=== PATIENT | female | born 1965 | race Caucasian/White ===

== ENCOUNTER 2022-04-22 10:44 | Outpatient (CLI) | payer OTHER, SELFPAY ==
--- NOTE | ~2022-04-22 | MMUS_ITS ---
EXAMINATION: US breast biopsy RT w image, MM post biopsy invasive RT DATE: 04/22/2022 12:47 (accession [id number]), 04/22/2022 12:43 (accession [id number]) INDICATION: Indeterminate mass in the upper outer quadrant of the right breast on diagnostic mammogra m and ultrasound. Ultrasound-guided core biopsy is requested to evaluate for malignancy. TECHNIQUE AND FINDINGS: The risks and potential benefits of the procedure were discussed with the patient including bleeding and infection. A time out was performed. The skin of the right breast was prepared and draped in usua l sterile fashion. 1% lidocaine was used for superficial anesthesia. 1% lidocaine with epinephrine wa s used for deep anesthesia. A vacuum-assisted biopsy gun needle was advanced through to the outer edge of the region of interest from a lateral approach utilizing sonographic guidance. A total of two tissue core sample was obtaine d through the lesion. After the first pass, the lesion was no longer visible, likely a cyst. A tissue marker clip was then placed at the biopsy site. Hemostasis was achieved. A sterile bandage was appli ed. The patient tolerated procedure well and there was no evidence of immediate complication. The patient was given verbal instructions to return to the Emergency Department in the event of severe breast pa in or rapid breast enlargement. A two view right breast mammogram was obtained to document tissue mar ker clip placement. IMPRESSION: 1. Successful ultrasound-guided vacuum-assisted biopsy of right breast mass with tissue marker placem ent. Reviewed, dictated and finalized at location A. IMPRESSION: 1. Successful ultrasound-guided vacuum-assisted biopsy of right breast mass wit h tissue marker placement.
== END 2022-04-22 10:45 | disposition home or self-care (01) ==
PROVIDERS: PCP Family Medicine Sports Medicine; Visit Provider Surgery
DX: R92.8 Other abnormal and inconclusive findings on diagnostic imaging of breast (principal); N64.89 Other specified disorders of breast
CPT/HCPCS: 19083; 88305; A4648

== ENCOUNTER 2022-07-30 14:04 | Emergency (ER) | payer OTHER, SELFPAY ==
[2022-07-30 16:01] VITALS: BP 160/95; PULSE 102; RESP 18; TEMP 36.4; O2SAT 99
--- NOTE | 2022-07-30 16:12 | ED.GENADULT ---
HPI - General Adult General Chief complaint: Neck Pain/Injury Stated complaint: neck pain Time Seen by Provider: 07/30/22 16:12 Source: patient Mode of arrival: ambulatory Limitations: no limitations History of Present Illness HPI narrative: 56-year-old female patient presents to the [facility] with complaints of neck pain for the past 2 days. Patient states that she went to go get a neck adjustment from her chiropractor but states that the pain really started after she got her adjustment. Patient denies seeing anything for the pain but states that her head just feels heavy at times. Patient also complaining of a sore throat some sinus drainage for the past couple of days as well. Denies any fevers, body aches chills or any other cold or flu-like symptoms. Related Data Home Medications Medication Instructions Recorded Confirmed albuterol sulfate 90 mcg/actuation 2 inh inhalation Q6H PRN Shortness 03/28/22 05/07/22 breath activated powder inhaler Of Breath buspirone 5 mg tablet 5 mg PO BID 03/28/22 05/07/22 fluticasone propionate 50 2 spray intranasal DAILY 03/28/22 05/07/22 mcg/actuation nasal spray,suspension (Flonase Allergy Relief) montelukast 10 mg tablet 10 mg PO DAILY 03/28/22 05/07/22 pseudoephedrine HCl 120 mg 120 mg PO Q12H 03/28/22 05/07/22 tablet,extended release (Sudafed 12 Hour) Q John 07/30/22 Allergies Allergy/AdvReac Type Severity Reaction Status Date / Time penicillin G Allergy Unknown Unknown Verified 07/30/22 15:41 Review of Systems Review of Systems: CONSTITUTIONAL: Denies fever, chills, or sweats. EYES: Denies visual changes, redness, or discharge. ENT: Denies rhinorrhea, positive congestion, positive sore throat, denies otalgia. CARDIOVASCULAR: Denies chest pain, palpitations, or edema. RESPIRATORY: Denies cough or dyspnea. GASTROINTESTINAL: Denies abdominal pain, nausea, vomiting, or diarrhea. GENITOURINARY: Denies dysuria or hematuria. SKIN: Denies rash or itching. MUSCULOSKELETAL: Denies back pain, joint pain, or myalgia. Positive upper posterior neck pain x2 days NEUROLOGIC: Denies headache, numbness, or weakness. PSYCHIATRIC: Denies anxiety or depression. PMFSH Past Medical History Medical History Asthma Kidney stones Surgical History Surgical History History of ear surgery History of mandibular surgery History of throat surgery Family History Family History Father Asthma Diabetes mellitus Hypertension Heart disease Mother Diabetes mellitus Hypertension Social History Social History Smoking status: Never smoker Alcohol intake: never Substance use: never Substance use type: does not use Comments At the time of my signature I agree with nursing past medical history, surgical, social, and family history. There is no relevant family history pertinent to the presenting complaint. Exam Narrative: GENERAL: Well-appearing, well-nourished, and in no acute distress. HEAD: Normocephalic, atraumatic. EYES: PERRLA and EOMI. NECK: Supple, no lymphadenopathy. No surface trauma, tenderness with obvious muscle spasm noted to the right lateral side of posterior head. Trachea midline. No subq emphysema or crepitus. No lukas tenderness, step-offs or deformity to firm Palpation at posterior midline. FROM without limitation or pain, normal flexion, extension,Lateral bending, rotation, and axial load. ENT: Nares clear, no rhinorrhea or epistaxis. Mucous membranes moist. Posterior pharynx with erythema noted. No tonsillar enlargement noted. NECK: Supple. No lymphadenopathy CHEST: Clear to auscultation. No respiratory distress. HEART: Regular rate and rhythm. No murmur heard. Normal peripheral pulses. ABDOMEN: Soft, nontender, nondistended, nor
== END 2022-07-30 16:59 | disposition home or self-care (01) ==
PROVIDERS: Emergency Provider Nurse Practitioner Family; PCP Family Medicine Sports Medicine
DX: M62.838 Other muscle spasm (principal); J45.909 Unspecified asthma, uncomplicated
CPT/HCPCS: 87081; 87880; 99213; G0463

== ENCOUNTER 2022-10-26 15:14 | Emergency (ER) | payer OTHER, SELFPAY ==
[2022-10-26] VITALS (10 sets, daily range): BP systolic 145–168; BP diastolic 90–96; PULSE 94–116; RESP 12–24; TEMP 36.9; O2SAT 95–100
--- NOTE | ~2022-10-26 | XR_ITS ---
EXAMINATION: XR chest 1V Exam Date/Time: 10/26/2022 15:30 PATIENT FINANCIAL ADVOCATE HISTORY: stroke symptoms, LEFT FACIAL DROOP, TIGHTNESS ARMS/NECK Comparison: None available. RESULT: Lines, tubes, and devices: None. Lungs and pleura: Slightly low lung volumes, with streaky bibasilar opacities likely representing at electasis. Cardiomediastinal silhouette: Stable. Other: No acute osseous or upper abdominal finding. IMPRESSION: No acute cardiopulmonary process. Reviewed, dictated and finalized at location K. ENT FINANCIAL ADVOCATE
--- NOTE | ~2022-10-26 | CT_ITS ---
EXAMINATION: CT brain wo con INDICATION: Left-sided weakness, facial droop COMPARISON: None TECHNIQUE: Standard unenhanced head CT. The dose-length product (DLP) was 529.67 mGy-cm. The mA was a djusted according to patient size. Iterative reconstruction technique was employed. FINDINGS: There is no intracranial hemorrhage, acute infarction, or abnormal mass lesion. The ventric les are normal. There is no abnormal mass effect or midline shift. The noble-white matter differentiat ion is normal. The basal cisterns are patent. The orbits are normal. There is chronic right maxillary sinusitis. IMPRESSION: 1. No acute intracranial abnormality. Reviewed, dictated and finalized at location B. GAGE CLOSING CLERK
--- NOTE | 2022-10-26 15:17 | ECG_ITS ---
Measurements Intervals [place] Rate: 111 P: 55 CT: 100 QRS: 41 QRSD: 94 T: 74 QT: 331 QTc: 450 Interpretive Statements SINUS TACHYCARDIA WITH SHORT CT INTERVAL NONSPECIFIC ST & T-WAVE ABNORMALITY ABNORMAL RHYTHM ECG NO PREVIOUS ECG AVAILABLE FOR COMPARISON Electronically Signed On 10-26-2022 19:47:55 RIPPLER by Hailey Thompson M.D.
[2022-10-26 15:54] LABS: Basophils Absolute Auto 0.1 K/mm3 (0.0-0.1); Basophils Percent Auto 0.4 % (0.2-1.2); Hematocrit 48.9 % (37.0-47.0); Hemoglobin 16.3 g/dL (12.0-15.0); Lymphocytes Absolute Auto 1.51 K/mm3 (0.9-3.2); Mean Corpuscular HGB Conc 33.3 g/dl (32-36); Mean Corpuscular Hemoglobin 30.1 pg (26-34); Mean Corpuscular Volume 90.4 fl (80-100); Mean Platelet Volume 9.2 fl (7.4-10.4); Monocytes Absolute Auto 0.9 K/mm3 (0.1-0.6); Monocytes Percent Auto 5.8 % (2.6-8.5); Neutrophils Absolute Auto 12.3 K/mm3 (1.3-6.7); Neutrophils Percent Auto 81.8 % (45.5-73.1); Platelet Count Result 476 k/mm3 (150-375); Red Blood Count 5.41 M/mm3 (4.2-5.4); Red Cell Distribution Width 14.5 % (11.5-14.5); White Blood Count 15.1 K/mm3 (4.5-10.0)
[2022-10-26 16:06] LABS: Prothrombin Time 12.9 Seconds (11.1-14.7)
[2022-10-26 16:07] LABS: Partial Thromboplastin Time 25.6 SECONDS (22.3-36.8)
[2022-10-26 16:48] LABS: Alanine Aminotransferase 34 U/L (6-35); Albumin Level 4.6 g/dL (3.5-5.1); Alkaline Phosphatase 82 U/L (38-126); Anion Gap 8 mmol/L (8-16); Aspartate Amino Transferase 31 U/L (14-36); Bilirubin,Total 0.7 mg/dL (0.2-1.3); Blood Urea Nitrogen 14 mg/dL (7-17); Calcium 9.2 mg/dL (8.4-10.2); Carbon Dioxide 29 mmol/L (22-30); Chloride 103 mmol/L (98-107); Estimated CRCL calculation 76 ml/min; Estimated Glomerular Filt Rate > 60; Glucose 122 mg/dL (65-110); Potassium 3.7 mmol/L (3.4-5.0); Sodium 140 mmol/L (137-145)
[2022-10-26 17:00] LABS: Troponin I < 0.012 ng/mL (0.000-0.034)
--- NOTE | 2022-10-26 17:38 | PC.NURSE ---
pt reports having URI last week that she is on steroids for at this time, pts co-worker noticed today that pts left eye is drooping, pt reports having trouble swallowing but has had this issue before and had a balloon inserted to stretch her throat muscles. pt reports some drooling. 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 pt displays high level of anxiety. provider at bedside and pts sister
--- NOTE | 2022-10-26 18:40 | ED.GENADULT ---
HPI - General Adult General Chief complaint: Unspecified Stated complaint: stroke like symptoms Time Seen by Provider: 10/26/22 17:20 History of Present Illness HPI narrative: Patient is a 56-year-old female who presents to the ER with left eye droopiness. Was noticed by a coworker today. Patient is unsure if she had it yesterday. She did have some difficulty with drinking over the last couple days where fluid comes outside of her mouth. She also reports dysphagia where food gets stuck in her throat and comes back up but that has been ongoing for the last 4 months. She has no difficulty swallowing today. No slurred speech. No history of CVA. Patient was diagnosed with pneumonia 5 days ago and just finished her Z-Alden. She is still on steroids which are tapering down. No weakness or numbness of an arm or leg. Related Data Home Medications Medication Instructions Recorded Confirmed albuterol sulfate 90 mcg/actuation 2 inh inhalation Q6H PRN Shortness 03/28/22 05/07/22 breath activated powder inhaler Of Breath buspirone 5 mg tablet 5 mg PO BID 03/28/22 05/07/22 fluticasone propionate 50 2 spray intranasal DAILY 03/28/22 05/07/22 mcg/actuation nasal spray,suspension (Flonase Allergy Relief) montelukast 10 mg tablet 10 mg PO DAILY 03/28/22 05/07/22 pseudoephedrine HCl 120 mg 120 mg PO Q12H 03/28/22 05/07/22 tablet,extended release (Sudafed 12 Hour) Q John 07/30/22 Allergies Allergy/AdvReac Type Severity Reaction Status Date / Time penicillin G Allergy Unknown Unknown Verified 07/30/22 15:41 Review of Systems Review of Systems: All systems reviewed & are unremarkable except as noted in HPI and below Constitutional: Constitutional: Denies chills and Denies fever(s) ENT: Reports dysphagia, Denies nasal congestion, Denies sinus pressure and Denies sore throat Cardiovascular: Cardiovascular: Denies chest pain and Denies radiating jaw, neck or arm pain Gastrointestinal: Gastrointestinal: Denies abdominal pain, Denies diarrhea, Denies nausea and Denies vomiting Neurologic: Denies headache(s), Reports focal weakness, Denies numbness and Denies paresthesias PMF Past Medical History Medical History Asthma Kidney stones Surgical History Surgical History History of ear surgery History of mandibular surgery History of throat surgery Family History Family History Father Asthma Diabetes mellitus Hypertension Heart disease Mother Diabetes mellitus Hypertension Social History Social History Smoking status: Never smoker Alcohol intake: never Substance use: never Substance use type: does not use Exam Narrative: GENERAL: Well-appearing, well-nourished, and in no acute distress. HEAD: Normocephalic, atraumatic. EYES: PERRL and EOMI. ENT: Mucous membranes moist. CHEST: Clear to auscultation. No respiratory distress. HEART: Regular rate and rhythm. Normal peripheral pulses. ABDOMEN: Soft, nontender, nondistended. EXTREMITIES: Normal range of motion. No edema. SKIN: Warm, dry, no rash. NEURO: Weakness of the left face when trying to raise eyebrows and smile as well as when trying to puff the cheeks. No upper or lower extremity drift. Sensation intact in the face and arms. Normal [id number] testing. Alert and oriented x3. PSYCH: Normal mood and affect. 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 Discussed treatment plan. Patient is already been on some higher dose steroids and is tapering down. We will have her continue her steroids and add on valacyclovir. Additionally patient has been educated that it is likely that she is going to need to see her GI doctor again for her dysphagia. She has no diffi
== END 2022-10-26 19:01 | disposition home or self-care (01) ==
PROVIDERS: Emergency Provider Emergency Medicine; PCP Family Medicine Sports Medicine
DX: G51.0 Bell's palsy (principal); R00.0 Tachycardia, unspecified; J45.909 Unspecified asthma, uncomplicated; Z87.442 Personal history of urinary calculi
CPT/HCPCS: 36415; 70450; 71045; 80053; 84484; 85025; 85610; 85730; 93005; 99284

== ENCOUNTER 2022-11-18 08:05 | Emergency (ER) | payer OTHER, SELFPAY ==
[2022-11-18 08:17] VITALS: BP 147/87; PULSE 113; RESP 16; TEMP 36.7; O2SAT 99
--- NOTE | 2022-11-18 08:22 | ED.URI ---
HPI - URI/Sore Throat General Chief Complaint: Upper Respiratory Infection Stated Complaint: Sinus Time Seen by Provider: 11/18/22 08:22 Source: patient and RN notes reviewed Mode of arrival: ambulatory Limitations: no limitations History of Present Illness HPI Narrative: 56 y/o female with hx asthma presented for c/o sinus congestion and drainage with cough for about 3 days. Blowing yellow mucous from nose. States she is concerned for return of pneumonia. Dx with pna 10/20/22, treated with steroid and abx. Then went to ER 10/26, dx wtih [place] palsy, treated with valcyclovir. Patient had F/U appt with pcp 10/31 and was told pna was not resolved, given doxycycline and reports improvement. States she developed the new symptoms and has been taking Mucinex along with scheduled Flonase and singulair. Also takes halley seltzer daily. Denies fatigue, sob, wheezing, n/v/d/f/c. 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 MD elicited complaint: cough Related Data Home Medications Medication Instructions Recorded Confirmed albuterol sulfate 90 mcg/actuation 2 inh inhalation Q6H PRN Shortness 03/28/22 05/07/22 breath activated powder inhaler Of Breath buspirone 5 mg tablet 5 mg PO BID 03/28/22 05/07/22 fluticasone propionate 50 2 spray intranasal DAILY 03/28/22 05/07/22 mcg/actuation nasal spray,suspension (Flonase Allergy Relief) montelukast 10 mg tablet 10 mg PO DAILY 03/28/22 05/07/22 pseudoephedrine HCl 120 mg 120 mg PO Q12H 03/28/22 05/07/22 tablet,extended release (Sudafed 12 Hour) Q John 07/30/22 Allergies Allergy/AdvReac Type Severity Reaction Status Date / Time penicillin G Allergy Unknown Unknown Verified 11/18/22 08:18 Review of Systems Review of Systems: CONSTITUTIONAL: Denies malaise, chills, sweats, fever EYES: Denies visual changes, redness, or discharge ENT: Reports rhinorrhea, congestion, Denies sinus pain, otalgia, sore throat CARDIOVASCULAR: Denies chest pain, palpitations, edema RESPIRATORY: Reports cough, post nasal drainage. Denies dyspnea GASTROINTESTINAL: Denies abdominal pain, nausea, vomiting, diarrhea SKIN: Denies rash or itching MUSCULOSKELETAL: Denies myalgia NEUROLOGIC: Denies headache [facility] Past Medical History Medical History (Updated 11/18/22 @ 09:03 by Meche Ibrahim APRN) Asthma Membreno's palsy Kidney stones Surgical History Surgical History History of ear surgery History of mandibular surgery History of throat surgery Family History Family History Father Asthma Diabetes mellitus Hypertension Heart disease Mother Diabetes mellitus Hypertension Social History Social History Smoking status: Never smoker Alcohol intake: never Substance use: never Substance use type: does not use Exam Narrative: GENERAL: well-appearing, nontoxic EYES: PERRLA, conjunctivae clear; left eye droop c/w bells palsy ENT: Mucous membranes moist. TMs pearly noble with dull light reflex bilaterally; no tragal tenderness. Oropharynx mildly erythematous without lesions or exudate, no drooling, no hoarseness, no trismus, uvula midline. NECK: Supple. No lymphadenopathy CHEST: Clear to auscultation, breath sounds equal. No wheezing, rhonchi, rales, or stridor. No respiratory distress, speaks in full sentences. HEART: Regular rate and rhythm. No murmur heard. SKIN: Warm, dry, no rash. NEURO: Alert and oriented x3. Course Course Emergency Course: Patient is aware of diagnosis, understands and agrees to treatment plan. Anticipatory guidance given. Patient agrees to follow-up as directed and is aware of reasons to seek care at the emergency department. Portions of this record may have been created with voice recognition software Level of Care: Express Care Visit Vital Signs Vital signs:
== END 2022-11-18 09:07 | disposition home or self-care (01) ==
PROVIDERS: Emergency Provider Nurse Practitioner Family; PCP Family Medicine Sports Medicine
DX: J06.9 Acute upper respiratory infection, unspecified (principal); Z20.822 Contact with and (suspected) exposure to COVID-19
CPT/HCPCS: 87081; 87426; 87804; 87880; 99213; C9803; G0463

== ENCOUNTER 2022-11-22 21:27 | Inpatient (IN) | payer OTHER, SELFPAY ==
[2022-11-22] VITALS (7 sets, daily range): BP systolic 126–159; BP diastolic 82–87; PULSE 91–106; RESP 14–22; TEMP 37; O2SAT 96–99
--- NOTE | ~2022-11-22 | XR_ITS ---
Portable chest x-ray Comparison: 11/22/2022 Clinical History: Shortness of breath Findings: There are minimal pleural effusions and probable minimal bibasilar atelectatic change. Ca rdiomediastinal silhouette is stable. Bones and soft tissues are unremarkable. Impression: Minimal pleural effusions with minimal bibasilar atelectatic change. Reviewed, dictated and finalized at location . Impression: Minimal pleural effusions with minimal bibasilar atelectatic change.
--- NOTE | ~2022-11-22 | XR_ITS ---
XR chest 1V portable DATE: 12/02/2022 19:35 INDICATION: Fever TECHNIQUE: Portable AP view on 12/02/2022 at 1712 hours COMPARISON: 11/30/2022 portable AP chest at 0534 hours FINDINGS: Right upper extremity PIC catheter tip overlies superior vena cava near superior cavoatrial junction. NG tube extends into the distal body of stomach, distal tip beyond the margin of the radio graph. There is bibasilar atelectasis. The lungs otherwise appear essentially clear. Small pleural effusions are suggested. No pneumothorax. Normal heart size. No hilar or mediastinal enlargement. IMPRESSION: Bibasilar atelectasis and small pleural effusions, mildly improved since 11/30/2022 Reviewed, dictated and finalized at location A.
--- NOTE | ~2022-11-22 | XR_ITS ---
EXAMINATION: XR chest ET placement DATE: 11/25/2022 10:05 INDICATION: Intubation. TECHNIQUE: A single frontal view of the chest was obtained. COMPARISON: Chest single view at 8:37 AM FINDINGS: There are airspace opacities at the lung bases, likely atelectasis. No pleural effusion or pneumothorax. There is prominent extrapleural fat bilaterally. The heart size is normal. The endotrac heal tube tip is 2.6 cm above the eva. The nasogastric tube tip is in the stomach. IMPRESSION: 1. Stable airspace opacities at the lung bases, likely atelectasis. Reviewed, dictated and finalized at location A.
--- NOTE | ~2022-11-22 | XR_ITS ---
EXAMINATION: XR abdomen/kub 1V INDICATION: Nasogastric tube insertion TECHNIQUE: Supine views of the abdomen were obtained on 2 radiographs. COMPARISON: 11/09/2022 FINDINGS: The nasogastric tube is in the stomach. The bowel gas pattern is normal. There are small pl eural effusions. Contrast from recent modified barium swallow partially opacifies the large bowel. IMPRESSION: 1. Nasogastric tube in the stomach. Reviewed, dictated and finalized at location A.
--- NOTE | ~2022-11-22 | XR_ITS ---
MODIFIED ESOPHAGRAM HISTORY: Dysphagia TECHNIQUE: Modified barium esophagram was performed by speech pathologist under radiologist fluorosco pic guidance. This was recorded on tape. The exam was reviewed on 11/30/2022 16:38 CDT. The DAP for this procedure was 0.469 Gycm2. Fluoroscopy time is 0.8 minutes. FINDINGS: Lateral projection of the cervical spine demonstrates normal alignment. There is an NG tu be present. During pharyngeal stage there is reduced laryngeal elevation, laryngeal adduction, tongue base retraction, and pharyngeal squeeze. There is vallecular residue. There is laryngeal penetration with aspiration.. IMPRESSION: 1: Abnormal pharyngeal stage of swallowing with evidence for laryngeal penetration and aspiration. 2: Please refer to speech pathologist report for additional detail. Reviewed, dictated and finalized at location A. IMPRESSION: 1: Abnormal pharyngeal stage of swallowing with evidence for laryngeal penetrat ion and aspiration. 2: Please refer to speech pathologist report for additional detail.
--- NOTE | ~2022-11-22 | XR_ITS ---
XR chest PICC line 11/26/2022 13:41 Indication: PICC line placement Procedure: AP portable chest Comparison: Comparison to multiple prior studies sequentially, with oldest reviewed study dated 11/22. Findings: Endotracheal tube tip 3.7 cm above the eva. NG tube passes into the stomach. Right subcl fina PICC line tip at the caudal aspect of the SVC. Small left pleural effusion. No focal pneumonia, edema or pneumothorax. Bibasilar atelectasis. Impression: 1: Bibasilar atelectasis with small left pleural effusion. Reviewed, dictated and finalized at location A. Impression: 1: Bibasilar atelectasis with small left pleural effusion.
--- NOTE | ~2022-11-22 | XR_ITS ---
XR abdomen NG/feed tube insert DATE: 12/03/2022 17:41 INDICATION: NG tube placement TECHNIQUE: Portable upright AP view on 12/03/2022 at 1734 hours COMPARISON: 12/03/2022 portable AP examination 1521 hours FINDINGS: 2 of NG tube overlies distal body of stomach. Nonspecific bowel gas pattern. IMPRESSION: NG tube in distal body of stomach Reviewed, dictated and finalized at Location A. Reviewed, dictated and finalized at location A.
--- NOTE | ~2022-11-22 | CT_ITS ---
CT scan of the Neck Technique: 2.5 mm axial scans were obtained through the neck after intravenous administration of 75 c c Omnipaque 350. Coronal and sagittal reconstructions of the neck were obtained. Dose reduction techn ique was used on this scan by utilizing automated exposure control and iterative reconstruction techn ique. The dose-length product (DLP) was 397.33 mGy-cm. Clinical History: Dysphagia Findings: There is no evidence of any significant cervical lymphadenopathy. Several small, nonenlarged jugulo- digastric and posterior cervical lymph nodes are noted bilaterally. Parapharyngeal spaces appear norm al bilaterally. The parotid and submandibular glands appear normal. The pharyngeal mucosal spaces appear normal. No soft tissue masses are seen in the neck. The thyroid gland appears normal. Images of the lung apices reveal no abnormalities. Impression: No significant abnormalities noted. Reviewed, dictated and finalized at [facility]. Impression: No significant abnormalities noted.
--- NOTE | ~2022-11-22 | XR_ITS ---
XR chest 1V portable 11/26/2022 06:05 Indication: Respiratory failure Procedure: AP portable chest Comparison: Comparison to multiple prior studies sequentially, with oldest reviewed study dated 10/26. Findings: Endotracheal tube tip 2 cm above the eva. NG tube in the stomach. Unchanged bibasilar in filtrates, atelectasis versus pneumonia. Small left pleural effusion. No pneumothorax. No acute osseo us abnormality. Impression: 1: Stable bibasilar infiltrates, atelectasis versus pneumonia. 2: Small left pleural effusion. Reviewed, dictated and finalized at location A. Impression: 1: Stable bibasilar infiltrates, atelectasis versus pneumonia. 2: Small left pleural effusion.
--- NOTE | ~2022-11-22 | XR_ITS ---
Portable chest x-ray Comparison: 11/27/2022 Clinical History: Respiratory failure Findings: Endotracheal tube, NG tube, and right-sided PICC line are in satisfactory positions. Proba ble minimal bilateral pleural effusions are present. Cardiomediastinal silhouette is stable. Bones a nd soft tissues are unremarkable. Impression: Minimal bilateral pleural effusions. Support tubes, as above. Reviewed, dictated and finalized at location . Impression: Minimal bilateral pleural effusions. Support tubes, as above.
--- NOTE | ~2022-11-22 | XR_ITS ---
EXAMINATION: XR barium swallow modified DATE: 11/24/2022 09:10 INDICATION: Dysphagia. TECHNIQUE: The patient was given barium-containing material of multiple consistencies to swallow by t he speech pathologist while I performed fluoroscopy. Fluoroscopy exposure time was 0.8 minutes. The n umber of fluoroscopy images saved to the PACS was 1. Dose-area product was 0.66 Gy-cm^2. FINDINGS: There is laryngeal penetration with all consistencies. IMPRESSION: 1. Laryngeal penetration with all consistencies. 2. Please refer to the speech therapy report for recommendations. Reviewed, dictated and finalized at location A.
--- NOTE | ~2022-11-22 | XR_ITS ---
Clinical Indication: Shortness of breath AP and lateral views of the chest: Comparison: 10/26/2022 Findings: Minimal pleural effusions are present bilaterally. No other pulmonary disease evident. Car diomediastinal silhouette is within normal limits. Bones and soft tissues are unremarkable. Impression: Minimal bilateral pleural effusions. Reviewed, dictated and finalized at location . Impression: Minimal bilateral pleural effusions.
--- NOTE | ~2022-11-22 | CT_ITS ---
Clinical Indication: Dyspnea CT Scan of the Chest with Contrast: Technique: Contiguous sections were acquired throughout the chest after intravenous administration of 75 cc of Omnipaque 350. Dose reduction technique was used on this scan by utilizing automated exposu re control and iterative reconstruction technique. The dose-length product (DLP) was 264.08 mGy-cm. Findings: There is no evidence of any significant mediastinal, hilar or axillary lymphadenopathy. There is no f illing defect in the pulmonary arterial tree to suggest pulmonary embolus. There is no evidence of ao rtic dissection or aneurysm. Aberrant right subclavian artery noted. There is no evidence of pleural or pericardial effusion. The lungs are clear, aside from mild dependent atelectatic changes. Images through the upper abdomen reveal no abnormalities. Impression: No evidence of pulmonary embolus, aortic dissection, or aortic aneurysm. No significant pulmonary abnormality. Reviewed, dictated and finalized at [facility]. Impression: No evidence of pulmonary embolus, aortic dissection, or aortic aneurysm. No significant pulmonary abnormality.
--- NOTE | ~2022-11-22 | XR_ITS ---
EXAMINATION: XR abdomen NG/feed tube insert DATE: 11/29/2022 12:40 INDICATION: Nasogastric tube insertion TECHNIQUE: A supine view of the abdomen and lower chest was obtained for evaluation of feeding tube placement. COMPARISON: None. FINDINGS: Nasogastric tube tip at the gastric antrum with proximal side-port in the distal gastric body. Small amount of residual oral contrast material at the hepatic and splenic flexures of the colon. No dilate d loops of gas-filled bowel in the visualized abdomen. Opacities at the bilateral lung bases consiste nt with small bilateral pleural effusions and associated atelectasis and/or pneumonia. IMPRESSION: 1. Gastric tube tip at the gastric antrum. Consider withdrawal by [address] both the tip and prox imal side port in the body of the stomach. 2. Small bilateral pleural effusions with associated bibasilar atelectasis and/or pneumonia. Reviewed, dictated and finalized at location A. IMPRESSION: 1. Gastric tube tip at the gastric antrum. Consider withdrawal by [address] both the tip and proximal side port in the body of the stomach. 2. Small bilateral pleural effusions with associated bibasilar atelectasis and/ or pneumonia.
--- NOTE | ~2022-11-22 | XR_ITS ---
Portable chest x-ray Comparison: 11/29/2022 Clinical History: Respiratory failure Findings: NG tube and right-sided PICC line are in satisfactory positions. Minimal bilateral pleural effusions are present. Cardiomediastinal silhouette is stable. Bones and soft tissues are unremarka ble. Impression: Minimal bilateral pleural effusions. Support lines, as above. Reviewed, dictated and finalized at location . Impression: Minimal bilateral pleural effusions. Support lines, as above.
--- NOTE | ~2022-11-22 | XR_ITS ---
XR chest 1V portable 11/27/2022 06:46 Indication: Respiratory failure Procedure: AP portable chest Comparison: Comparison to multiple prior studies sequentially, with oldest reviewed study dated 11/25. Findings: NG tube in the stomach. Endotracheal tube tip 3.6 cm above the eva. Bibasilar infiltrate s. Possible small effusion. No pneumothorax. PICC line tip near the cavoatrial junction. Impression: 1: Bibasilar airspace disease may represent atelectasis or pneumonia. Reviewed, dictated and finalized at location A. Impression: 1: Bibasilar airspace disease may represent atelectasis or pneumonia.
--- NOTE | ~2022-11-22 | US_ITS ---
Limited Abdominal Sonogram: Real-time sonographic imaging of the right upper quadrant was performed. Clinical History: Abnormal LFTs Findings: The liver appears echogenic, with no evidence of mass lesion or bile duct dilatation. Main portal vein demonstrates normal direction of flow. The gallbladder is partially contracted, but appe ars normal with no evidence of gallstone or wall thickening. The common bile duct measures 2 mm. The visualized pancreas, aorta, and IVC are unremarkable. Impression: Diffuse fatty infiltration of the liver. Reviewed, dictated and finalized at location M. Impression: Diffuse fatty infiltration of the liver.
--- NOTE | ~2022-11-22 | XR_ITS ---
Portable chest x-ray Comparison: 11/28/2022 Clinical History: Respiratory failure Findings: Endotracheal tube, NG tube, and right-sided PICC line remain in place. Questionable minima l pleural effusions. Lungs are otherwise clear. Cardiomediastinal silhouette is stable. Bones and so ft tissues are unremarkable. Impression: Support tubes, as above. Questionable minimal pleural effusions. Reviewed, dictated and finalized at location . Impression: Support tubes, as above. Questionable minimal pleural effusions.
--- NOTE | 2022-11-22 22:40 | ECG_ITS ---
Measurements Intervals [place] Rate: 98 P: 26 CO: 113 QRS: 23 QRSD: 90 T: 55 QT: 345 QTc: 441 Interpretive Statements SINUS RHYTHM WITH SHORT CO INTERVAL BASELINE WANDER- I, II, AVL BORDERLINE ECG COMPARED TO ECG 10/26/2022 15:50:02 SINUS RHYTHM NOW PRESENT Electronically Signed On 11-23-2022 6:44:14 CDT by Sumeet Conte D.O.
--- NOTE | 2022-11-22 22:55 | PC.NURSE ---
pt. to XR
--- NOTE | 2022-11-22 23:36 | PC.NURSE ---
attempted to po challenge pt. pt took sip of water and began coughing. stated she couldn't breathe, used personal inhaler from purse with some relief. o2 sat 97%
[2022-11-22] MEDS: IPRATROPIUM BR 0.02% INH SOLN 0.5 MG/2.5 ML VIAL INHALATION (23:42)
[2022-11-22] MEDS: ALBUTEROL SULFATE NEB 2.5 MG/3 ML INH INHALATION (23:42)
[2022-11-23] VITALS (30 sets, daily range): BP systolic 119–156; BP diastolic 70–93; PULSE 67–114; RESP 11–25; TEMP 36.4–37; O2SAT 93–100; BMI 29.4
[2022-11-23] MEDS: methylPREDNISolone SOD SUCC 125 MG VIAL IV PUSH (00:18)
[2022-11-23 00:28] LABS: Basophils Absolute Auto 0.1 K/mm3 (0.0-0.1); Basophils Percent Auto 0.4 % (0.2-1.2); Eosinophils Absolute Auto 0.1 K/mm3 (0-0.3); Eosinophils Percent Auto 0.9 % (0-4.4); Hematocrit 49.2 % (37.0-47.0); Hemoglobin 16.2 g/dL (12.0-15.0); Immature Granulocyte Absolute 0.26 K/mm3 (0.00-0.031); Immature Granulocyte Percent A 2.3 % (0-0.5); Lymphocytes Absolute Auto 2.56 K/mm3 (0.9-3.2); Lymphocytes Percent Auto 22.9 % (18.3-44.2); Mean Corpuscular HGB Conc 32.9 g/dl (32-36); Mean Corpuscular Hemoglobin 30.5 pg (26-34); Mean Corpuscular Volume 92.5 fl (80-100); Mean Platelet Volume 9.2 fl (7.4-10.4); Monocytes Percent Auto 8.9 % (2.6-8.5); Neutrophils Absolute Auto 7.2 K/mm3 (1.3-6.7); Neutrophils Percent Auto 64.6 % (45.5-73.1); Platelet Count Result 470 k/mm3 (150-375); Red Blood Count 5.32 M/mm3 (4.2-5.4); Red Cell Distribution Width 14.6 % (11.5-14.5); White Blood Count 11.2 K/mm3 (4.5-10.0)
[2022-11-23 00:35] LABS: Appearance Urine Clear (Clear); Bacteria Urine None Seen /hpf; Bilirubin Urine Negative (Negative); Color Urine Yellow (Yellow); Glucose Urine UA Negative (Negative); Ketones Urine Trace mg/dL (Negative); Leukocyte Esterase Ur 1+ LEU/UL (Negative); Nitrate Urine Negative (Negative); Non Pathogenic Casts 0-2; Protein Urine Negative (Negative); RBC Urine 0-2 /hpf (0-2); Specific Grav Ur 1.015 (1.001-1.035); Squamous Epithelial Cell Urine Moderate /hpf (Few); Urobilinogen Urine 0.2 mg/dL (<2.0); pH Urine 6.5 (5.0-9.0)
[2022-11-23 00:37] LABS: Lactic Acid Reflex 1.5 mmol/L (0.7-2.0)
[2022-11-23 00:38] LABS: Alanine Aminotransferase 31 U/L (6-35); Albumin Level 4.5 g/dL (3.5-5.1); Alkaline Phosphatase 80 U/L (38-126); Anion Gap 9 mmol/L (8-16); Aspartate Amino Transferase 26 U/L (14-36); Bilirubin,Total 0.8 mg/dL (0.2-1.3); Blood Urea Nitrogen 15 mg/dL (7-17); Calcium 9.1 mg/dL (8.4-10.2); Carbon Dioxide 30 mmol/L (22-30); Chloride 103 mmol/L (98-107); Estimated CRCL calculation 73 ml/min; Estimated Glomerular Filt Rate > 60; Glucose 108 mg/dL (65-110); Potassium 2.9 mmol/L (3.4-5.0); Sodium 142 mmol/L (137-145)
[2022-11-23 00:42] LABS: Add Urine Microscopic? YES
[2022-11-23 00:47] LABS: Anisocytosis 1+ (NORMAL); Atypical Lymphocytes Present; Platelet Estimate Increased (Adequate); Schistocytes None Seen (NORMAL)
[2022-11-23 00:50] LABS: NT Pro B Type Natriuretic Pept 37 pg/mL (19.9-100); Troponin I < 0.012 ng/mL (0.000-0.034)
[2022-11-23 01:03] LABS: Influenza A QL RT-PCR Negative (Negative); Influenza B QL RT-PCR Negative (Negative); SARS-CoV-2 RNA PCR Negative
[2022-11-23 02:57] LABS: Troponin I < 0.012 ng/mL (0.000-0.034)
--- NOTE | 2022-11-23 03:02 | ED.GENADULT ---
HPI - General Adult General Chief complaint: Shortness of Breath/Dyspnea Stated complaint: UNABLE TO SWALLOW, SPIT, OR COUGH Time Seen by Provider: 11/22/22 23:11 History of Present Illness HPI narrative: Patient 57-year-old female who presents the emergency department with chief complaint of shortness of breath. Patient reports that she has history of asthma she is also had history of Membreno's palsy and has had difficulty swallowing for some time patient states been progressively worse and reports that recently she had an upper respiratory infection and has been treated with steroids and also just started taking Levaquin patient states she swallowed the Levaquin and then now has not really been out of the boot any p.o. intake down. Every time she tries to swallow anything she starts coughing and feels as though she has to use her inhaler. Patient reports that she has had a left-sided facial droop and has had a evaluation by the emergency department and also has seen a neurologist at [place]. Patient states that she feels very short of breath with this and reports that it is worse with ambulation. Related Data Home Medications Medication Instructions Recorded Confirmed albuterol sulfate 90 mcg/actuation 2 inh inhalation Q6H PRN Shortness 03/28/22 11/18/22 breath activated powder inhaler Of Breath buspirone 5 mg tablet 5 mg PO BID 03/28/22 11/18/22 fluticasone propionate 50 2 spray intranasal DAILY 03/28/22 11/18/22 mcg/actuation nasal spray,suspension (Flonase Allergy Relief) montelukast 10 mg tablet 10 mg PO DAILY 03/28/22 11/18/22 budesonide-formoterol HFA 160 2 puff inhalation DAILY 11/18/22 11/18/22 mcg-4.5 mcg/actuation aerosol inhaler (Symbicort) Allergies Allergy/AdvReac Type Severity Reaction Status Date / Time penicillin G Allergy Unknown Unknown Verified 11/22/22 21:36 Review of Systems Review of Systems: A 10 system review of systems was completed on the patient and is negative except for what is stated in the HPI. Nursing and ancillary documentation was reviewed. [facility] Past Medical History Medical History Asthma Membreno's palsy Kidney stones Surgical History Surgical History History of ear surgery History of mandibular surgery History of throat surgery Family History Family History Father Asthma Diabetes mellitus Hypertension Heart disease Mother Diabetes mellitus Hypertension Social History Social History Smoking status: Never smoker Alcohol intake: never Substance use: never Substance use type: does not use Exam Narrative: GENERAL: Well-appearing, well-nourished, and in no acute distress. HEAD: Normocephalic, atraumatic. Left-sided facial droop EYES: PERRLA and EOMI. ENT: Nares clear, no rhinorrhea or epistaxis. Mucous membranes moist. Patient is spitting out oral secretions NECK: Supple. CHEST: Scattered wheezes to auscultation. No respiratory distress. HEART: Regular rate and rhythm. No murmur heard. Normal peripheral pulses. ABDOMEN: Soft, nontender, nondistended, normal active bowel sounds. EXTREMITIES: Normal range of motion. No edema. SKIN: Warm, dry, no rash. NEURO: No focal deficits. Alert and oriented x3. PSYCH: Normal mood and affect. Course Vital Signs Vital signs: Vital Signs Temperature 37.0 C 11/22/22 21:30 Pulse Rate 106 H 11/22/22 21:30 Respiratory Rate 22 H 11/22/22 21:30 Blood Pressure 159/87 H 11/22/22 21:30 Pulse Oximetry 96 11/22/22 21:30 Oxygen Delivery Room Air 11/22/22 21:30 Temperature 37.0 C 11/22/22 21:30 Pulse Rate 103 H 11/23/22 00:19 Respiratory Rate 12 11/23/22 00:19 Blood Pressure 156/93 H 11/23/22 00:19 Pulse Oximetry 99 11/23/22 00:1
[2022-11-23] MEDS: KCL 20 MEQ/SW 100 ML 100 ML 50 MEQ IVPB (03:19)
[2022-11-23] MEDS: SODIUM CHLORIDE 0.9% IV 500 ML 10 ML (03:20)
[2022-11-23] MEDS: methylPREDNISolone SOD SUCC 125 MG VIAL 60 MG IV PUSH ×3 (05:59→23:08)
[2022-11-23] MEDS: ALBUTEROL SULFATE NEB 2.5 MG/3 ML INH INHALATION ×3 (07:50→20:07)
[2022-11-23] MEDS: IPRATROPIUM BR 0.02% INH SOLN 0.5 MG/2.5 ML VIAL INHALATION ×3 (07:50→20:08)
--- NOTE | 2022-11-23 11:06 | PC.NURSE ---
report received from Tori DEJESUS at this time including history and physical and plan of care
--- NOTE | 2022-11-23 12:07 | ADMGEN ---
This patient, Urvashi Donovan, was admitted to [facility] from ED as a MED/SURG with Tele overflow. Patient/family oriented to hospital policies and general routines including ID bracelet, bed and alarms, visiting hours, pain management, procedures, bathroom and other care routines, personal items, smoking policy, room service/diet, and visiting hours. Information on how to activate the Rapid Response Team has been discussed. Patient/Family are encouraged to report perceived risks to care and to ask questions if they do not understand what they are told or what they should do.
--- NOTE | 2022-11-23 12:30 | PC.NURSE ---
Dr. Watt here to log washer 6 to see pt.
--- NOTE | 2022-11-23 13:02 | ADMGEN ---
This patient, Urvashi Donovan, was admitted to [facility]. Patient/family oriented to hospital policies and general routines including ID bracelet, bed and alarms, visiting hours, pain management, procedures, bathroom and other care routines, personal items, smoking policy, room service/diet, and visiting hours. Information on how to activate the Rapid Response Team has been discussed. Patient/Family are encouraged to report perceived risks to care and to ask questions if they do not understand what they are told or what they should do.
[2022-11-23] MEDS: SODIUM CHLORIDE 0.9% IV 1,000 ML 125 ML IV CONT (13:17)
[2022-11-23] MEDS: PANTOPRAZOLE SODIUM IV 40 MG VIAL IV PUSH (13:18)
--- NOTE | 2022-11-23 14:10 | PM.IMHP ---
H&P: HPI History of Present Illness Date/Time: 11/23/22 14:10 Chief Complaint: SOB Narrative: Pt has a history of asthma and belly palsy. Pt states she has been having problems with her sinuses few days ago and now she cannot breath. Pt tried taking her inhalers and a course of levaquin without any improvement. Pt also mentions problems with swallowing, states every time she tries to swallow starts coughing. Pt is currently NPO Pt was admitted last winter with pneumonia. Pt lives in [place]. Sees her pcp for her inhaler refill does not see a specialist doctor. Pt had CXR showing mild pleural effusions, CT Chest was negative, CT neck was negative Labs show low potassium levels and elevated plts Review of Systems Review of Systems: Positive or SOB wheeze cough Positive for Dysphagia Pt complains of some L sided facial numbness pt has history of bells palsy All other review of systems are negative apart from those in HPI PMFSH Past Medical History Medical History Asthma Membreno's palsy Kidney stones Surgical History Surgical History History of ear surgery History of mandibular surgery History of throat surgery Family History Family History Father Asthma Diabetes mellitus Hypertension Heart disease Mother Diabetes mellitus Hypertension Social History Social History Smoking status: Never smoker Alcohol intake: unknown Substance use: never Substance use type: does not use Lack of Transportation: No Lack of Food: Never True Current Housing: I Have Housing Concerned About Future Housing: No Difficulty Paying Gas/Electric Bills: No Difficulty Paying for Meds: No Currently Unemployed: No Education: Bachelor's Degree Difficulty w/ Childcare or Family Care: No Spiritual care concerns: No Meds Home Medications and Allergies Home Medications Medication Instructions Recorded Confirmed Type albuterol sulfate 90 mcg/actuation 2 inh inhalation Q6H PRN Shortness 03/28/22 11/23/22 History breath activated powder inhaler Of Breath buspirone 5 mg tablet 5 mg PO BID 03/28/22 11/23/22 History fluticasone propionate 50 2 spray intranasal DAILY 03/28/22 11/23/22 History mcg/actuation nasal spray,suspension (Flonase Allergy Relief) montelukast 10 mg tablet 10 mg PO HS 03/28/22 11/23/22 History budesonide-formoterol HFA 160 2 puff inhalation BID 11/18/22 11/23/22 History mcg-4.5 mcg/actuation aerosol inhaler (Symbicort) prednisone 20 mg tablet 40 mg PO DAILY 4 days #8 tabs 11/18/22 11/23/22 Rx Allergies Allergy/AdvReac Type Severity Reaction Status Date / Time penicillin G Allergy Unknown Unknown Verified 11/23/22 12:35 Vital Signs Vital Signs - 24 hr 11/22/22 21:30 11/22/22 21:35 11/22/22 22:02 Temperature 37.0 C Pulse Rate 106 H 101 H Respiratory Rate 22 H Blood Pressure 159/87 H Pulse Oximetry 96 96 Oxygen Delivery Room Air Room Air Fraction of Inspired Oxygen 11/22/22 23:43 11/22/22 23:52 11/23/22 00:19 Temperature Pulse Rate 91 91 103 H Respiratory Rate 18 18 12 Blood Pressure 156/93 H Pulse Oximetry 99 Oxygen Delivery Fraction of Inspired Oxygen 11/22/22 22:00 11/22/22 23:30 11/23/22 00:24 Temperature Pulse Rate 99 95 104 H Respiratory Rate 14 14 Blood Pressure 126/86 130/82 Pulse Oximetry 97 99 96 Oxygen Delivery Fraction of Inspired Oxygen 11/23/22 00:48 11/23/22 01:19 11/23/22 01:42 Temperature Pulse Rate 93 100 97 Respiratory Rate 25 H 19 Blood Pressure Pulse Oximetry 97 93 95 Oxygen Delivery Fraction of Inspired Oxygen 11/23/22 01:47 11/23/22 02:00 11/23/22 02:15 Temperature Pulse Rate 88 81 97 Respiratory Rate 19 17 19 B
[2022-11-23] MEDS: DEXTROSE 5%/0.45% SOD CHL 1,000 ML 70 ML IV CONT (16:18)
[2022-11-23] MEDS: busPIRone HCL 5 MG TABLET PO (16:20)
[2022-11-24] VITALS (20 sets, daily range): BP systolic 126–166; BP diastolic 79–92; PULSE 66–121; RESP 14–25; TEMP 36.8–37.3; O2SAT 94–100
[2022-11-24] MEDS: IPRATROPIUM BR 0.02% INH SOLN 0.5 MG/2.5 ML VIAL INHALATION ×4 (02:17→21:21)
[2022-11-24] MEDS: ALBUTEROL SULFATE NEB 2.5 MG/3 ML INH INHALATION ×4 (02:17→21:21)
[2022-11-24] MEDS: methylPREDNISolone SOD SUCC 125 MG VIAL 60 MG IV PUSH ×3 (06:09→21:00)
[2022-11-24 06:31] LABS: Basophils Percent Auto 0.3 % (0.2-1.2); Hematocrit 44.5 % (37.0-47.0); Immature Granulocyte Absolute 0.37 K/mm3 (0.00-0.031); Immature Granulocyte Percent A 2.4 % (0-0.5); Lymphocytes Absolute Auto 0.96 K/mm3 (0.9-3.2); Lymphocytes Percent Auto 6.3 % (18.3-44.2); Mean Corpuscular HGB Conc 33.7 g/dl (32-36); Mean Corpuscular Hemoglobin 29.9 pg (26-34); Mean Corpuscular Volume 88.8 fl (80-100); Mean Platelet Volume 9.3 fl (7.4-10.4); Monocytes Absolute Auto 0.5 K/mm3 (0.1-0.6); Monocytes Percent Auto 3.4 % (2.6-8.5); Neutrophils Absolute Auto 13.3 K/mm3 (1.3-6.7); Neutrophils Percent Auto 87.6 % (45.5-73.1); Platelet Count Result 478 k/mm3 (150-375); Red Blood Count 5.01 M/mm3 (4.2-5.4); Red Cell Distribution Width 14.5 % (11.5-14.5); White Blood Count 15.2 K/mm3 (4.5-10.0)
[2022-11-24 06:48] LABS: Alanine Aminotransferase 26 U/L (6-35); Albumin Level 3.7 g/dL (3.5-5.1); Alkaline Phosphatase 62 U/L (38-126); Anion Gap 4 mmol/L (8-16); Aspartate Amino Transferase 20 U/L (14-36); Bilirubin,Total 0.5 mg/dL (0.2-1.3); Blood Urea Nitrogen 17 mg/dL (7-17); Calcium 8.6 mg/dL (8.4-10.2); Carbon Dioxide 27 mmol/L (22-30); Chloride 107 mmol/L (98-107); Estimated CRCL calculation 84 ml/min; Estimated Glomerular Filt Rate > 60; Glucose 181 mg/dL (65-110); Potassium 3.5 mmol/L (3.4-5.0); Sodium 138 mmol/L (137-145)
[2022-11-24] MEDS: busPIRone HCL 5 MG TABLET PO (08:25)
[2022-11-24] MEDS: ENOXAPARIN 40 MG/0.4 ML SYRINGE SUB-Q (08:25)
[2022-11-24] MEDS: FLUTICASONE PROPIONATE 0.05% NA SPR 16 GM BTL (*BKC) 2 SPRAY NASAL (08:26)
[2022-11-24] MEDS: PANTOPRAZOLE SODIUM IV 40 MG VIAL IV PUSH (09:41)
--- NOTE | 2022-11-24 09:43 | PCSTNOTE ---
Please refer to the Modified Barium Swallow Evaluation in the EMR.
[2022-11-24] MEDS: DEXTROSE 5%/0.45% SOD CHL 1,000 ML 70 ML IV CONT (10:01)
[2022-11-24] MEDS: LORazepam INJ (*CRX) 2 MG/ML VIAL 0.5 MG IV PUSH (17:22)
--- NOTE | 2022-11-24 18:35 | WPDGICN ---
Assessment and Plan Assessment and plan (1) Difficulty in swallowing: Code(s): R13.10 - Dysphagia, unspecified Status: Acute Assessment and Plan: will evaluate with egd to assess if stricture, ring or even malignancy but also concerned with possible neurological component (noted membreno's palsy)- mri brain was ordered and awaiting neurology consult (2) Acute asthma exacerbation: Code(s): J45.901 - Unspecified asthma with (acute) exacerbation Status: Acute Assessment and Plan: on treatment (3) Thrombocytosis: Code(s): D75.839 - Thrombocytosis, unspecified Status: Acute Assessment and Plan: monitor (4) Hypokalemia: Code(s): E87.6 - Hypokalemia Status: Acute Assessment and Plan: replaced, not eating much (5) Membreno's palsy: Code(s): G51.0 - Membreno's palsy Status: Acute GI Consult Note Consult date/time: 11/24/22 18:35 Reason for consult: dysphagia HPI: Urvashi Donovan is a 57 year old female who was admitted after having difficulty breathing and treated as asthma, also diagnosed with membreno's palsy few months ago. She was treated with inhalers and levaquin without any improvement. I am called because noted progression of difficulty eating, lately not even with liquids. She had barium swallow and I was told that did not pass. Review of Systems Constitutional: Constitutional: Reports fatigue Eyes: Eyes: Reports no additional eye complaints ENT: Reports Normal hearing present Cardiovascular: Cardiovascular: Denies chest pain Respiratory: Respiratory: Reports chest congestion and Reports cough Gastrointestinal: Gastrointestinal: Denies abdominal pain Genitourinary: Genitourinary: Denies hematuria Musculoskeletal: Musculoskeletal: Denies arthralgias Integumentary/Breasts: Skin/Breast: Denies rash Neurologic: Denies confusion Psychiatric: Psychiatric: Denies confusion [facility] Past Medical History Medical History (Updated 11/24/22 @ 18:39 by Michael Stubbs MD) Asthma Membreno's palsy Kidney stones Surgical History Surgical History History of ear surgery History of mandibular surgery History of throat surgery Family History Family History Father Asthma Diabetes mellitus Hypertension Heart disease Mother Diabetes mellitus Hypertension Social History Social History Smoking status: Never smoker Alcohol intake: unknown Substance use: never Substance use type: does not use Lack of Transportation: No Lack of Food: Never True Current Housing: I Have Housing Concerned About Future Housing: No Difficulty Paying Gas/Electric Bills: No Difficulty Paying for Meds: No Currently Unemployed: No Education: Bachelor's Degree Difficulty w/ Childcare or Family Care: No Spiritual care concerns: No Meds Home Medications and Allergies Home Medications Medication Instructions Recorded Confirmed Type albuterol sulfate 90 mcg/actuation 2 inh inhalation Q6H PRN Shortness 03/28/22 11/23/22 History breath activated powder inhaler Of Breath buspirone 5 mg tablet 5 mg PO BID 03/28/22 11/23/22 History fluticasone propionate 50 2 spray intranasal DAILY 03/28/22 11/23/22 History mcg/actuation nasal spray,suspension (Flonase Allergy Relief) montelukast 10 mg tablet 10 mg PO HS 03/28/22 11/23/22 History budesonide-formoterol HFA 160 2 puff inhalation BID 11/18/22 11/23/22 History mcg-4.5 mcg/actuation aerosol inhaler (Symbicort) prednisone 20 mg tablet 40 mg PO DAILY 4 days #8 tabs 11/18/22 11/23/22 Rx Allergies Allergy/AdvReac Type Severity Reaction Status Date / Time penicillin G Allergy Unknown Unknown Verified 11/23/22 12:35 codeine AdvReac Vomiting Verified 11/24/22 17:24 Vital Si
--- NOTE | 2022-11-24 21:54 | PM.IMPN ---
Progress Note: A&P Assessment and Plan (1) Acute asthma exacerbation: Code(s): J45.901 - Unspecified asthma with (acute) exacerbation Status: Acute Assessment and Plan: Solu Medrol 60 mg TID (2) Difficulty in swallowing: Code(s): R13.10 - Dysphagia, unspecified Status: Acute Assessment and Plan: Speech evaluation-failed with all attepts Recommend to keep NPO. Consult general surgery for possible G-tube placement Consult neurology for generalized progressive weakness Obtain records and MRI from [facility] (3) Obesity (BMI 30-39.9): Code(s): E66.9 - Obesity, unspecified Status: Acute (4) Hypokalemia: Code(s): E87.6 - Hypokalemia Status: Acute Assessment and Plan: resolved Monitor labwork (5) Thrombocytosis: Code(s): D75.839 - Thrombocytosis, unspecified Status: Acute Assessment and Plan: monitor lab work Plan Continue nebulizer treatments, continue iv steroids, continue iv levaquin for acute infective asthma exacerbation Watch vitals signs Subjective Date/time seen: 11/24/22 1155 Review of Systems Review of Systems: All systems reviewed & are unremarkable except as noted in HPI and below Eyes: Comments: Denies any visual disturbances, but c/o left sided eye lid droop starting in June of 2022 ENT: Comments: c/o difficulty swallowing, sore throat and the feeling of aspiration starting in August 2022 and getting progressively worse Cardiovascular: Comments: Denies any c/o chest pain, dizziness, or llightheadedness Respiratory: Comments: c/o occasional SOB that seems to be worsening since August 2022. States it is difficult to have a forceful cough. Gastrointestinal: Comments: Denies any abdominal pain, nausea, vomiting, diarrhea, or constipation Genitourinary: Comments: Denies any increased urinary frequency, dysuria, suprapubic pain or flank pain. Musculoskeletal: Comments: c/o weakness to bilateral upper arms that comes and goes. Denies any weakness to lower extremities.Denies any numbess or tingling. Neurologic: Reports Abnormal speech present (difficulty speaking and swallowing ) Psychiatric: Psychiatric: Reports anxiety Exam HENMT: Face/Nose/Sinus: Normal nares present Mouth: Yes moist mucous membranes Eyes: Other: Left eye lid droop noted. Neck: Neck: supple and no JVD Resp: Other: Appears in no acute respiratory distress. Able to speak in complete sentences but does take some extra time to complete sentences. No use of accessory muscles noted. Lungs are clear and equal bilaterally. Cardio: Rate: regular rate and tachycardic Rhythm: regular rhythm Other: No rub, murmur, or gallop noted GI: Other: Abdomen soft, nondistended and nontender to palpation. Bowel sounds present x 4 quadrants. Skin: General skin exam: normal color and no rashes or lesions noted Neuro: General: gait normal (Seems somewhat stiff) Other: Not able to raise eye brows or hold arms up on her own otherwise normal neuro exam. Has strong and equal bilateral hand grasps. Has 5/5 strengh to bilateral legs. Gait somewhat stiff but steady. Extrem: General: normal to inspection Psych: Mental Status: mental status grossly normal Affect: normal affect Objective Data Vital Signs Vital Signs: Vital Signs - 24 hr 11/23/22 22:00 11/24/22 02:18 11/24/22 02:30 Temperature 98.0 F Pulse Rate 88 81 83 Respiratory Rate 16 14 14 Blood Pressure 119/70 Pulse Oximetry 99 Oxygen Delivery 11/24/22 05:57 11/23/22 22:00 11/24/22 00:00 Temperature Pulse Rate 83 89 71 Respiratory Rate 16 Blood Pressure 126/79 Pulse Oximetry 98 Oxygen Delivery 11/24/22 02:00 11/24/22 04:00 11/24/22 06:00 Temperature Pulse Rate 66 86 86 Respiratory Rate Blood Pressure Pulse Oximetry Oxygen Delivery 11/24/22 08:05 11/24/22 08:16 11/24/22 08:22 Temperature 98.3
[2022-11-25] VITALS (25 sets, daily range): BP systolic 103–180; BP diastolic 63–102; PULSE 49–130; RESP 16–24; TEMP 36.1–37.3; O2SAT 94–100; BMI 29.4
[2022-11-25] MEDS: LORazepam INJ (*CRX) 2 MG/ML VIAL 0.5 MG IV PUSH (00:33)
[2022-11-25] MEDS: DEXTROSE 5%/0.45% SOD CHL 1,000 ML 70 ML IV CONT (00:33)
[2022-11-25] MEDS: ALBUTEROL SULFATE NEB 2.5 MG/3 ML INH INHALATION ×4 (02:10→20:00)
[2022-11-25] MEDS: IPRATROPIUM BR 0.02% INH SOLN 0.5 MG/2.5 ML VIAL INHALATION ×4 (02:10→20:00)
[2022-11-25] MEDS: methylPREDNISolone SOD SUCC 125 MG VIAL 60 MG IV PUSH ×3 (06:10→22:29)
[2022-11-25 07:28] LABS: Basophils Absolute Auto 0.1 K/mm3 (0.0-0.1); Basophils Percent Auto 0.5 % (0.2-1.2); Hematocrit 51.2 % (37.0-47.0); Immature Granulocyte Percent A 2.3 % (0-0.5); Lymphocytes Absolute Auto 0.72 K/mm3 (0.9-3.2); Lymphocytes Percent Auto 4.1 % (18.3-44.2); Mean Corpuscular HGB Conc 33.2 g/dl (32-36); Mean Corpuscular Hemoglobin 29.8 pg (26-34); Mean Corpuscular Volume 89.8 fl (80-100); Mean Platelet Volume 9.2 fl (7.4-10.4); Monocytes Absolute Auto 0.7 K/mm3 (0.1-0.6); Monocytes Percent Auto 4.2 % (2.6-8.5); Neutrophils Absolute Auto 15.7 K/mm3 (1.3-6.7); Neutrophils Percent Auto 88.9 % (45.5-73.1); Platelet Count Result 500 k/mm3 (150-375); Red Cell Distribution Width 14.9 % (11.5-14.5); White Blood Count 17.6 K/mm3 (4.5-10.0)
--- NOTE | 2022-11-25 08:28 | WPDCNINT ---
Assessment and Plan Assessment and plan (1) Myasthenia gravis in crisis: Code(s): G70.01 - Myasthenia gravis with (acute) exacerbation Status: Acute Assessment and Plan: patient presented with these symptoms of ptosis of left eye, right facial droop, difficulty in swallowing and speech weakness of her extremities upper extremities. initial imaging Soft tissue neck No significant abnormalities noted. Chest CTA No evidence of pulmonary embolus, aortic dissection, or aortic aneurysm. No significant pulmonary abnormality After my initial examination it appears the patient may have myasthenia gravis and is in crisis. I checked her vital capacity NIF and ABG which are as below. Case discussed with Neurology Dr. Durbin who examined the patient and agreed patient will be started on IVIG and continued on steroids as per neurology recommendations patient will be intubated this time for respiratory failure. I will discontinue Levaquin Neurology will order the necessary workup (2) Difficulty in swallowing: Code(s): R13.10 - Dysphagia, unspecified Status: Acute Assessment and Plan: see above GI is following plan to do EGD but the symptoms could be secondary to myasthenia start tube feeding (3) Acute respiratory failure: Code(s): J96.00 - Acute respiratory failure, unspecified whether with hypoxia or hypercapnia Status: Acute Assessment and Plan: Patient requiring 2 L of oxygen and her chest x-ray showed Minimal pleural effusions with minimal bibasilar atelectatic change. I checked her vital capacity and it was 1750 mL which was adequate but her NIF was only -18 cm water ABG 7.34/ 52/ 85 patient shows respiratory weakness hypoventilation and hypercarbia/respiratory acidosis discussed with patient and will proceed with elective intubation at this time. explained patient the risks and benefits of intubation and mechanical ventilation and she verbalized understanding and agreeable to proceed. 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 They both verbalized understanding and agreed to proceed. I also discussed case with Neurology Dr. Durbin and hospitalist provider Antonia Harris Total Critical Care Time - 60 minutes Due to a high probability of clinically significant, life threatening deterioration, the patient required my highest level of preparedness to intervene emergently and I personally spent this critical care time directly and personally managing the patient. This critical care time included obtaining a history; examining the patient; pulse oximetry; ordering and review of studies; arranging urgent treatment with development of a management plan; evaluation of patient's response to treatment; frequent reassessment; and discussions with other providers. It was exclusive of separately billable procedures and treating other patients and teaching time. 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 she was admitted with diagnosis of asthm
[2022-11-25 08:55] LABS: Alveolar/Arterial O2 Gradient 2.1 mmHg; Base Excess ABG 0.9 mEq/l (+/-2.0); Fractional Inspired Oxygen 21 %; HCO3 ABG 27.7 mEq/l (22.0-26.0); Methemoglobin ABG 0.5 %THb (0-1.5); Oxygen Content ABG 22.7 %vol (16.0-22.0); Oxygen Saturation ABG 95.9 % (95.0-100.0); Oxyhemoglobin 95.4 % THb (90.0-100.0); PO2 ABG 85.4 mmHg (80.0-100.0); PO2 FiO2 Ratio Arterial Blood 4.07 %; Reduced Hemoglobin 4.1 %THb (0-5.0); Total Hemoglobin 16.9 g/dL (12.0-18.0); pH ABG 7.345 (7.350-7.450)
[2022-11-25 08:57] LABS: Device ROOM AIR; Modified Allen's Test Pass; Site Drawn LEFT RADIAL
--- NOTE | 2022-11-25 09:36 | PC.NURSE ---
PATIENT BROUGHT TO ICU TO BE EVALUATED FOR SHORTNESS OF BREATH, DIFFICULTY SWALLOWING AND BELLS PALSY COMPLICATIONS. DR. JOSHI AT BEDSIDE.
--- NOTE | 2022-11-25 10:07 | WPDPROCEDUR ---
Procedures Intubation Intubation Date: 11/25/22 Intubation Time: 09:45 Consent: Informed consent was obtained from patient prior to intubation A pre-procedural Time-Out was completed immediately before starting the procedure and confirmed: Patient Identification, Site, Procedure, Patient Position and the Availability of Requisite Equipment: Yes Sedative: etomidate Mg given: 20 Paralytic: succinylcholine Mg given: 100 Laryngoscope: fiber optic video scope ET tube size: 7.5 Tube secured depth (cm): 22 Tube secured location: lips Tube placement confirmation: visualized tube passing through cords, equal breath sounds bilaterally, no breath sounds over epigastrium and confirmation by capnometry Patient tolerated procedure: well Intubation complications: none Additional comments: chest x-ray reviewed an ET tube advanced by 3 more cm 5 cm at the lips
[2022-11-25] MEDS: SODIUM CHLORIDE 0.9% IV 1,000 ML 999 ML IV CONT (10:20)
[2022-11-25] MEDS: MIDAZOLAM HCL (*CRX) 2 MG/2 ML VIAL 4 MG IV PUSH (10:21)
[2022-11-25] MEDS: ETOMIDATE 20 MG/10 ML AMPUL IV PUSH (10:21)
[2022-11-25] MEDS: SUCCINYLCHOLINE CHLORIDE 20 MG/ML 10 ML VIAL 100 MG IV PUSH (10:21)
[2022-11-25 10:23] LABS: Immunoglobulin A 261 mg/dL (70-400); Immunoglobulin G 1041 mg/dL (700-1600); Immunoglobulin M 53 mg/dL (40-230)
[2022-11-25] MEDS: FENTANYL 2,500MCG/NS250ML(*CRX 2,500 MCG/250 ML BAG IV CONT (10:26)
[2022-11-25] MEDS: MIDAZOLAM 100MG/NS 100ML(*CRX) 100 MG/100 ML BAG IV CONT (10:27)
[2022-11-25] MEDS: PANTOPRAZOLE SODIUM IV 40 MG VIAL IV PUSH (10:28)
[2022-11-25] MEDS: ENOXAPARIN 40 MG/0.4 ML SYRINGE SUB-Q (10:29)
[2022-11-25 10:53] LABS: Alveolar/Arterial O2 Gradient 167.5 mmHg; Base Excess ABG -0.6 mEq/l (+/-2.0); Carboxyhemoglobin 0.3 % THb (0-2.0); Fractional Inspired Oxygen 50 %; HCO3 ABG 23.4 mEq/l (22.0-26.0); Methemoglobin ABG 0.5 %THb (0-1.5); Oxygen Content ABG 21.4 %vol (16.0-22.0); Oxyhemoglobin 97.6 % THb (90.0-100.0); PCO2 ABG 36.5 mmHg (35.0-45.0); PO2 ABG 147.9 mmHg (80.0-100.0); PO2 FiO2 Ratio Arterial Blood 2.96 %; Reduced Hemoglobin 1.6 %THb (0-5.0); Total Hemoglobin 15.4 g/dL (12.0-18.0); pH ABG 7.424 (7.350-7.450)
[2022-11-25 10:54] LABS: Arterial Blood Gas PEEP 5 cmH2O; Arterial Blood Gas Tidal Volume 400 ml; Arterial Blood Gas Vent Mode CMV; Arterial Blood Gas Ventilator rate 20 /MIN; Device VENTILATOR; Modified Allen's Test Pass; Site Drawn LEFT RADIAL
[2022-11-25] MEDS: LACTATED RINGERS 1,000 ML 75 ML IV CONT (10:58)
--- NOTE | 2022-11-25 11:28 | WPDNEURCNPN ---
Assessment and Plan Assessment and plan (1) Myasthenia gravis in crisis: Code(s): G70.01 - Myasthenia gravis with (acute) exacerbation Status: Acute (2) Weakness: Code(s): R53.1 - Weakness Status: Acute (3) Acute respiratory failure: Code(s): J96.00 - Acute respiratory failure, unspecified whether with hypoxia or hypercapnia Status: Acute (4) Ptosis, left eyelid: Code(s): H02.402 - Unspecified ptosis of left eyelid Status: Acute Plan Ms. Donovan is a 57 year old female with a history of asthma presenting who presented due to worsening respiratory status. Given left ptosis, dysarthria, dysphagia, and proximal weakness in the upper extremities, concern is highest for myasthenia gravis with acute crisis. Patient was electively intubated due to NIF. - Will check IgA prior to initiation of IVIG - Check Acetylcholine receptor antibodies (binding, blocking, modulating), anti striated muscle ab, anti-MUSK ab and anti-LRP4 ab (to be drawn prior to initiation of IVIG) - Start IVIG 0.4g/kg/day x 5 days - Once she has enteral access, switch Solumedrol to Prednisone 60mg daily, if primary team is agreeable Consult date: 11/25/22 Reason for consult: Myasthenia Crisis HPI: Urvashi Donovan is a 57 year old female with a history of asthma and kidney stones who was admitted due shortness of breath with concerns for myasthenia crisis. Per chart review, patient has been having difficulty swallowing for some number of months, and more recently, has had changes in her speech. She presented to the ED about a month ago due to drooping of the left eyelid. 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 Patient has had persistence drooping of the left eyelid that does not seem to fluctuate through the day. She denies any double vision. She does have weakness in her upper extremities that has also been going on for several months. Initially when patient was admitted there was concern for possible asthma exacerbation or pneumonia given patient's respiratory symptoms. She had decline in her respiratory status today and was transferred to the ICU. Dr. Mehta raised concern regarding the possibility of myasthenia gravis. Patient's NIF was -18. Decision was made to electively intubate patient. As neuroimaging she had a CT head done about a month ago that was normal. She had a CTA chest with contrast that did not reveal thymoma. Patient denies any personal or family history of autoimmune conditions. Review of Systems Review of Systems: ROS unobtainable: Yes unobtainable due to medical condition PMFSH Past Medical History Medical History Asthma Membreno's palsy Kidney stones Surgical History Surgical History History of ear surgery History of mandibular surgery History of throat surgery Family History Family History Father Asthma Diabetes mellitus Hypertension Heart disease Mother Diabetes mellitus Hypertension Social History Social History Smoking status: Never smoker Alcohol intake: unknown Substance use: never Substance use type: does not use Lack of Transportation: No Lack of Food: Never True Current Housing: I Have Housing Concerned About Future Housing: No Difficulty Paying Gas/Electric Bills: No Difficulty Paying for Meds: No Currently Unemployed: No Education: Bachelor's Degree Difficulty w/ Childcare or Family Care: No Spiritual care concerns: No Meds Home Medications and Allergies Home Medications Medication Instructions Recorded Confirmed Type albuterol sulfate 90 mcg/actuation 2 inh inhalation Q6H PRN Shortness 03/28/22 11/23/22 History breath activated powder inhaler Of Breath buspirone 5 mg tablet 5 mg PO
[2022-11-25 11:39] LABS: Glucose Point of Care 123 mg/dl (65-105)
--- NOTE | 2022-11-25 12:07 | PCSTNOTE ---
SPeech Therapy treatment order cancelled at this time secondary to patient intubation due to respiratory issues. DIagnosed with myasthenia gravis. Consider re-ordering swallowing treatment when appropriate.
[2022-11-25 12:11] LABS: Anion Gap 10 mmol/L (8-16); Blood Urea Nitrogen 20 mg/dL (7-17); Calcium 9.6 mg/dL (8.4-10.2); Carbon Dioxide 24 mmol/L (22-30); Chloride 103 mmol/L (98-107); Estimated CRCL calculation 84 ml/min; Estimated Glomerular Filt Rate > 60; Glucose 163 mg/dL (65-110); Sodium 137 mmol/L (137-145)
--- NOTE | 2022-11-25 15:46 | WPDGIPROGNO ---
Progress Note: A&P Assessment and Plan (1) Difficulty in swallowing: Code(s): R13.10 - Dysphagia, unspecified Status: Acute Assessment and Plan: new diagnosis of MG as the cause impairment of swallowing, currently she has enteral tube and being feed that way no egd (2) Myasthenia gravis in crisis: Code(s): G70.01 - Myasthenia gravis with (acute) exacerbation Status: Acute Assessment and Plan: neurology on board given new diagnosis of MG- started on steroids and ivig (3) Acute respiratory failure: Code(s): J96.00 - Acute respiratory failure, unspecified whether with hypoxia or hypercapnia Status: Acute Assessment and Plan: intubated given worsening symptoms (4) Ptosis, left eyelid: Code(s): H02.402 - Unspecified ptosis of left eyelid Status: Acute Subjective Date/time seen: 11/25/22 15:46 Interval history: she had more respiratory distress, difficulty even to talk or handle secretions- transferred to icu and intubated given high suspicious of myasthenia gravis. Review of Systems Review of Systems: All systems reviewed & are unremarkable except as noted in HPI and below Exam Const: Other: intubated HENMT: Face/Nose/Sinus: Normal nares present Other: ETT in place Eyes: Other: left ptosis Neck: Neck: supple Resp: Auscultation: rhonchi Cardio: Rate: regular rate GI: GI Palp: Yes Soft to palpation and No Guarding due to palpation present (GI) Skin: General skin exam: normal color Neuro: Other: unable to assess- intubated Objective Data Vital Signs Vital Signs: Vital Signs - 24 hr 11/24/22 16:00 11/24/22 16:30 11/24/22 21:19 Temperature 98.3 F Pulse Rate 121 H 118 H 113 H Respiratory Rate 22 H Blood Pressure 138/92 H Pulse Oximetry 97 94 Oxygen Delivery Room Air Fraction of Inspired Oxygen 11/24/22 21:19 11/24/22 21:33 11/24/22 20:00 Temperature Pulse Rate 113 H 115 H 107 H Respiratory Rate 22 H 19 Blood Pressure Pulse Oximetry Oxygen Delivery Fraction of Inspired Oxygen 11/24/22 20:00 11/25/22 00:00 11/25/22 00:00 Temperature 97 F L Pulse Rate 105 H 82 Respiratory Rate 16 Blood Pressure 128/89 Pulse Oximetry 97 Oxygen Delivery Room Air Fraction of Inspired Oxygen 11/25/22 01:54 11/25/22 02:13 11/25/22 04:00 Temperature Pulse Rate 102 H 90 82 Respiratory Rate 17 17 Blood Pressure Pulse Oximetry Oxygen Delivery Fraction of Inspired Oxygen 11/25/22 08:00 11/25/22 08:00 11/25/22 08:00 Temperature 98.7 F Pulse Rate 125 H 120 H Respiratory Rate 22 H Blood Pressure 180/102 H Pulse Oximetry 98 95 Oxygen Delivery Room Air Fraction of Inspired Oxygen 11/25/22 10:00 11/25/22 10:00 11/25/22 10:00 Temperature Pulse Rate 130 H 130 H 130 H Respiratory Rate 24 H 24 H Blood Pressure 152/95 H Pulse Oximetry 100 100 Oxygen Delivery Mechanical Ventilation Fraction of Inspired Oxygen 50 11/25/22 10:00 11/25/22 10:26 11/25/22 10:27 Temperature Pulse Rate 130 H 130 H Respiratory Rate 24 H 24 H Blood Pressure Pulse Oximetry Oxygen Delivery Fraction of Inspired Oxygen 50 11/25/22 12:00 11/25/22 12:00 11/25/22 12:00 Temperature Pulse Rate 76 76 Respiratory Rate 18 Blood Pressure Pulse Oximetry 99 Oxygen Delivery Mechanical Ventilation Fraction of Inspired Oxygen 35 35 11/25/22 08:45 11/25/22 11:00 11/25/22 14:00 Temperature Pulse Rate 129 H 101 H 72 Respiratory Rate Blood Pressure Pulse Oximetry 100 100 Oxygen Delivery Mechanical Ventilation Fraction of Inspired Oxygen 50 35 11/25/22 14:00 11/25/22 14:37 11/25/22 14:37 Temperature 98.2 F Pulse Rate 72 71 74 Respiratory Rate 18 18 Blood Pressure 122/78 Pulse Oximetry 96 97 Oxygen Delivery Mechanical Ventilation Fraction of Inspired Oxygen 35 11/25/22 07:10 11/25/22 07:3
[2022-11-25 17:38] LABS: Glucose Point of Care 149 mg/dl (65-105)
--- NOTE | 2022-11-25 18:12 | PM.IMPN ---
Progress Note: A&P Assessment and Plan (1) Difficulty in swallowing: Code(s): R13.10 - Dysphagia, unspecified Status: Acute Assessment and Plan: NPO General surgery consult-appreciate input This morning the weakness to pt's throat and chest seems worse than when I saw her yesterday. Concern for pt's ability to protect airway in the near future. Consulted Dr. Mehta, [facility] Watchman, who accepts pt to ICU. Appreciate his advanced knowledge and experience. (2) Asthma: Code(s): J45.909 - Unspecified asthma, uncomplicated Status: Acute Assessment and Plan: Solumedrol 60 mg q 8hrs Albuterol HHN Budesonide HHN Subjective Date/time seen: 11/25/22 0745 Review of Systems Review of Systems: ROS very limited secondary to acuity of medical condition and worsening of vocal hoarseness and volume. Pt denies any c/o pain, SOB, or nausea. Constitutional: Constitutional: Reports weakness Eyes: Comments: ptosis of the left eye lid ENT: Comments: c/o difficulty swallowing even her own secretions Cardiovascular: Comments: Denies any CP Respiratory: Comments: c/o ineffective cough Musculoskeletal: Comments: C/o bilateral upper arm weakness Neurologic: Reports Abnormal speech present (difficulty speaking and swallowing, worse than when I saw her yesterday) Psychiatric: Psychiatric: Reports anxiety Exam Const: General: in distress moderate and uncomfortable Other: Today patient hypertensive, tachycardic, and mildly tachypneic on room air. Oxygen saturation initially 97% on room air. Pt anxious and asking if she is going to . Reassurance given that we are trying to determine the cause of her symptoms and address them. HENMT: Face/Nose/Sinus: Normal nares present Mouth: Yes moist mucous membranes Eyes: General: appearance normal, both eyes and all related structures Other: Ptosis of left eye Neck: Neck: supple and no JVD Resp: Effort & Inspection: normal respiratory effort Other: Pt is mildly tachypneic and not using accessory muscles at this time. Lungs sound clear and equal bilaterally but diminished to the bilateral bases. Cardio: Rate: regular rate and tachycardic Rhythm: regular rhythm Other: No rub, murmur, or gallop noted GI: Other: Abdomen soft, nondistended and nontender to palpation. Bowel sounds present x 4 quadrants. Skin: General skin exam: normal color and no rashes or lesions noted Neuro: Speech: Abnormal speech present (difficulty speaking and swallowing ) Other: Gait not attempted this date. Not able to raise eye brows or hold arms up on her own otherwise normal neuro exam. Has strong and equal bilateral hand grasps. Has 5/5 strength to bilateral legs. Extrem: General: normal to inspection Psych: Mental Status: mental status grossly normal Affect: normal affect Objective Data Vital Signs Vital Signs: Vital Signs - 24 hr 11/24/22 21:19 11/24/22 21:19 11/24/22 21:33 Temperature Pulse Rate 113 H 113 H 115 H Respiratory Rate 22 H 19 Blood Pressure Pulse Oximetry 94 Oxygen Delivery Room Air Fraction of Inspired Oxygen 11/24/22 20:00 11/24/22 20:00 11/25/22 00:00 Temperature 97 F L Pulse Rate 107 H 105 H Respiratory Rate 16 Blood Pressure 128/89 Pulse Oximetry 97 Oxygen Delivery Room Air Fraction of Inspired Oxygen 11/25/22 00:00 11/25/22 01:54 11/25/22 02:13 Temperature Pulse Rate 82 102 H 90 Respiratory Rate 17 17 Blood Pressure Pulse Oximetry Oxygen Delivery Fraction of Inspired Oxygen 11/25/22 04:00 11/25/22 08:00 11/25/22 08:00 Temperature Pulse Rate 82 125 H Respiratory Rate Blood Pressure Pulse Oximetry 98 Oxygen Delivery Room Air Fraction of Inspired Oxygen 11/25/22 08:00 11/25/22 10:00 11/25/22 10:00 Temperature 98.7 F Pulse Rate 120 H 130 H 130 H Respiratory Rate 22 H 24 H Blood Pressure 180/102 H 152/95 H Pulse Oximetry
[2022-11-25] MEDS: MINERAL OIL/WHITE PETROLATUM OINTMENT 1 APPLIC EACH EYE (22:29)
[2022-11-26] VITALS (35 sets, daily range): BP systolic 99–133; BP diastolic 59–78; PULSE 48–92; RESP 13–18; TEMP 36.4–37.2; O2SAT 95–99
[2022-11-26 01:34] LABS: Glucose Point of Care 156 mg/dl (65-105)
[2022-11-26] MEDS: IPRATROPIUM BR 0.02% INH SOLN 0.5 MG/2.5 ML VIAL INHALATION ×3 (02:24→19:10)
[2022-11-26] MEDS: ALBUTEROL SULFATE NEB 2.5 MG/3 ML INH INHALATION ×3 (02:25→19:10)
[2022-11-26 05:00] LABS: Base Excess ABG 1.2 mEq/l (+/-2.0); Carboxyhemoglobin 0.3 % THb (0-2.0); Fractional Inspired Oxygen 30 %; HCO3 ABG 22.9 mEq/l (22.0-26.0); Methemoglobin ABG 0.4 %THb (0-1.5); Oxygen Content ABG 19.6 %vol (16.0-22.0); Oxyhemoglobin 94.2 % THb (90.0-100.0); PCO2 ABG 28.5 mmHg (35.0-45.0); PO2 ABG 71.4 mmHg (80.0-100.0); PO2 FiO2 Ratio Arterial Blood 2.38 %; Reduced Hemoglobin 5.1 %THb (0-5.0); Total Hemoglobin 14.8 g/dL (12.0-18.0)
[2022-11-26 05:03] LABS: Device VENTILATOR; Site Drawn LEFT RADIAL; pH ABG 7.522 (7.350-7.450)
[2022-11-26 05:05] LABS: Arterial Blood Gas PEEP 5 cmH2O; Arterial Blood Gas Tidal Volume 400 ml; Arterial Blood Gas Vent Mode CMV; Arterial Blood Gas Ventilator rate 18 /MIN
[2022-11-26] MEDS: methylPREDNISolone SOD SUCC 125 MG VIAL 60 MG IV PUSH (05:19)
[2022-11-26 05:24] LABS: Glucose Point of Care 181 mg/dl (65-105)
[2022-11-26] MEDS: LACTATED RINGERS 1,000 ML 75 ML IV CONT (05:27)
[2022-11-26 06:21] LABS: Basophils Percent Auto 0.2 % (0.2-1.2); Hematocrit 41.3 % (37.0-47.0); Hemoglobin 13.7 g/dL (12.0-15.0); Immature Granulocyte Absolute 0.18 K/mm3 (0.00-0.031); Immature Granulocyte Percent A 1.3 % (0-0.5); Lymphocytes Absolute Auto 0.64 K/mm3 (0.9-3.2); Lymphocytes Percent Auto 4.7 % (18.3-44.2); Mean Corpuscular HGB Conc 33.2 g/dl (32-36); Mean Corpuscular Hemoglobin 29.8 pg (26-34); Mean Platelet Volume 9.4 fl (7.4-10.4); Monocytes Absolute Auto 0.7 K/mm3 (0.1-0.6); Monocytes Percent Auto 5.2 % (2.6-8.5); Neutrophils Percent Auto 88.6 % (45.5-73.1); Platelet Count Result 362 k/mm3 (150-375); Red Blood Count 4.59 M/mm3 (4.2-5.4); Red Cell Distribution Width 14.8 % (11.5-14.5); White Blood Count 13.6 K/mm3 (4.5-10.0)
[2022-11-26 06:34] LABS: Anion Gap 4 mmol/L (8-16); Blood Urea Nitrogen 22 mg/dL (7-17); Carbon Dioxide 24 mmol/L (22-30); Chloride 108 mmol/L (98-107); Estimated CRCL calculation 99 ml/min; Estimated Glomerular Filt Rate > 60; Glucose 160 mg/dL (65-110); Magnesium 2.2 mg/dL (1.6-2.3); Potassium 3.4 mmol/L (3.4-5.0); Sodium 136 mmol/L (137-145)
--- NOTE | 2022-11-26 08:37 | WPDINTPN ---
Progress Note: A&P Assessment and Plan (1) Acute respiratory failure: Code(s): J96.00 - Acute respiratory failure, unspecified whether with hypoxia or hypercapnia Status: Acute Assessment and Plan: Acute respiratory failure secondary to myasthenia crisis. On arrival to ICU patient was requiring 2 L of oxygen and her chest x-ray showed Minimal pleural effusions with minimal bibasilar atelectatic change. I checked her vital capacity and it was 1750 mL which was adequate but her NIF was only -18 cm water despite multiple attempts Her ABG 7.34/ 52/ 85 showed respiratory acidosis hypercarbia Patient had respiratory weakness hypoventilation and hypercarbia/respiratory acidosis I discussed with patient regarding proceeding with with elective intubation at this time. I explained the risks and benefits of intubation and mechanical ventilation and she verbalized understanding and agreed to proceed. 11/25 patient was electively intubated ABG and chest x-ray reviewed 11/26 Decrease respiratory rate to 16 (2) Myasthenia gravis in crisis: Code(s): G70.01 - Myasthenia gravis with (acute) exacerbation Status: Acute Assessment and Plan: patient presented with these symptoms of ptosis of left eye, right facial droop, difficulty in swallowing and speech weakness of her extremities upper extremities. initial imaging Soft tissue neck No significant abnormalities noted. Chest CTA No evidence of pulmonary embolus, aortic dissection, or aortic aneurysm. No significant pulmonary abnormality Transferred to ICU yesterday due to worsening of symptoms and was intubated for respiratory failure Neurology following Continue IVIG Continue steroids but change to daily q.a.m. dose (3) Difficulty in swallowing: Code(s): R13.10 - Dysphagia, unspecified Status: Acute Assessment and Plan: see above GI is following and planning do EGD but the symptoms could be secondary to myasthenia Continue tube feeding (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 Status: Acute Assessment and Plan: Not sure if patient had Membreno's palsy or was misdiagnosed (5) Asthma: Code(s): J45.909 - Unspecified asthma, uncomplicated Status: Acute Assessment and Plan: she is on steroids which will be continued continue bronchodilators Plan DVT prophylaxis - Lovenox Stress ulcer prophylaxis - PPI Nutrition -continue Tube Feeds Code Status - Full Code Total Critical Care Time - 32 minutes Due to a high probability of clinically significant, life threatening deterioration, the patient required my highest level of preparedness to intervene emergently and I personally spent this critical care time directly and personally managing the patient. This critical care time included obtaining a history; examining the patient; pulse oximetry; ordering and review of studies; arranging urgent treatment with development of a management plan; evaluation of patient's response to treatment; frequent reassessment; and discussions with other providers. It was exclusive of separately billable procedures and treating other patients and teaching time. Please see Assessment and Plan section and the rest of the note for further information on patient assessment and treatment Subjective Date/time seen: 11/26/22 Overnight events reviewed. Afebrile Continues to be on mechanical ventilation 30% FiO2 Continues to be sedated with Versed and fentanyl Vitals acceptable Tolerating tube feeds Adequate urine output Review of Systems Review of Systems: ROS unobtainable: Yes unobtainable due to endotracheal tube and unobtainable due to medical condition Exam Narrative: General: Pt is sedated, intubated and on mechanical ventilation Lungs/Chest: Trachea central Coarse BS B/L, No crackles or wheezing. Cardiac: RRR. Normal S1 S2. No murmurs Circulation: Pedal pulses are intact and symmetrical. Abdomen: Decrease
[2022-11-26] MEDS: FLUTICASONE PROPIONATE 0.05% NA SPR 16 GM BTL (*BKC) 2 SPRAY NASAL (09:19)
[2022-11-26] MEDS: POTASSIUM CHLORIDE 20 MEQ PACKET (FOR LIQUID) 40 MEQ FEED TUBE ×2 (09:19→15:14)
[2022-11-26] MEDS: ENOXAPARIN 40 MG/0.4 ML SYRINGE SUB-Q (09:20)
[2022-11-26] MEDS: PANTOPRAZOLE SODIUM IV 40 MG VIAL IV PUSH (09:20)
[2022-11-26] MEDS: MINERAL OIL/WHITE PETROLATUM OINTMENT 1 APPLIC EACH EYE ×2 (09:20→20:39)
--- NOTE | 2022-11-26 09:43 | PC.NURSE ---
Immuno Globulin started. Patient vital signs stable. No signs of distress or adverse reaction. Will continue to monitor.
[2022-11-26] MEDS: predniSONE 20 MG TABLET 60 MG FEED TUBE (09:44)
--- NOTE | 2022-11-26 10:30 | PC.NURSE ---
Fentany was set to 75 and verced at [address] Mehta ordered to turn verced to 50 and Verced to 2. Patient was bradycardic. Patient tolerating sedation well. Pt able to open eyes and follow commands. No distress noted.
--- NOTE | 2022-11-26 11:01 | WPDNEUROPN ---
Progress Note: A&P Assessment and Plan (1) Myasthenia gravis in crisis: Code(s): G70.01 - Myasthenia gravis with (acute) exacerbation Status: Acute (2) Acute respiratory failure: Code(s): J96.00 - Acute respiratory failure, unspecified whether with hypoxia or hypercapnia Status: Acute (3) Weakness: Code(s): R53.1 - Weakness Status: Acute (4) Ptosis, left eyelid: Code(s): H02.402 - Unspecified ptosis of left eyelid Status: Acute Plan Ms. Donovan is a 57 year old female with a history of asthma presenting who presented due to worsening respiratory status. Given left ptosis, dysarthria, dysphagia, and proximal weakness in the upper extremities, concern is highest for myasthenia gravis with acute crisis. Patient was electively intubated due to NIF. - IVIG 0.4g/kg/day x 5 days -- today is day 2 - Continue Prednisone 60mg daily - Check Acetylcholine receptor antibodies (binding, blocking, modulating), anti striated muscle ab, anti-MUSK ab and anti-LRP4 ab (to be drawn prior to initiation of IVIG) -- drawn and pending Subjective Date/time seen: 11/26/22 11:01 Interval history: Urvashi Donovan is a 57 year old female with a history of asthma and kidney stones who was admitted due shortness of breath with concerns for myasthenia crisis. Per chart review, patient has been having difficulty swallowing for some number of months, and more recently, has had changes in her speech. She presented to the ED about a month ago due to drooping of the left eyelid. 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 Patient has had persistence drooping of the left eyelid that does not seem to fluctuate through the day. She denies any double vision. She does have weakness in her upper extremities that has also been going on for several months. Initially when patient was admitted there was concern for possible asthma exacerbation or pneumonia given patient's respiratory symptoms. She had decline in her respiratory status today and was transferred to the ICU. Dr. Mehta raised concern regarding the possibility of myasthenia gravis. Patient's NIF was -18. Decision was made to electively intubate patient. As neuroimaging she had a CT head done about a month ago that was normal. She had a CTA chest with contrast that did not reveal thymoma. Patient denies any personal or family history of autoimmune conditions. Interval history: Intubated, in ICU. Receiving fentanyl. Received first dose of IVIG yesterday. Switched IV steroids to Prednisone 60mg daily. Review of Systems Review of Systems: ROS unobtainable: Yes unobtainable due to endotracheal tube Exam Const: General: comfortable and no acute distress HENMT: Mouth: Yes moist mucous membranes Eyes: Pupils: Equal, round and reactive pupils present EOM: EOMs intact bilaterally Resp: Other: intubated, mechanical ventillation Skin: General skin exam: normal color Neuro: Other: sleeping, but woke up when name called, following commands, PERRL, EOMI, left ptosis is improved, has four point restrains but can move hands and feet without difficulty. Extrem: General: normal to inspection Objective Data Vital Signs Vital Signs: Vital Signs - 24 hr 11/25/22 12:00 11/25/22 12:00 11/25/22 12:00 Temperature Pulse Rate 76 76 Respiratory Rate 18 Blood Pressure Pulse Oximetry 99 Oxygen Delivery Mechanical Ventilation Fraction of Inspired Oxygen 35 35 11/25/22 14:00 11/25/22 14:00 11/25/22 14:37 Temperature 36.8 C Pulse Rate 72 72 71 Respiratory Rate 18 Blood Pressure 122/78 Pulse Oximetry 96 97 Oxygen Delivery Mechanical Ventilation Fraction of Inspired Oxygen 35 11/25/22 14:37 11/25/22 14:42 11/25/22 16:00 Temperature Pulse Rate 74 74 68 Respiratory Rate 18 18 Blood Pressure Pulse Oximetry Oxygen Delivery Fraction of Inspired Oxygen 11/25/22 16:00 11/25/22
--- NOTE | 2022-11-26 13:17 | WPDGIPROGNO ---
Progress Note: A&P Assessment and Plan (1) Difficulty in swallowing: Code(s): R13.10 - Dysphagia, unspecified Status: Acute Assessment and Plan: new diagnosis of MG as the cause impairment of swallowing, currently she has enteral tube and being feed that way no need of egd but if any changes will be available will follow from afar (2) Myasthenia gravis in crisis: Code(s): G70.01 - Myasthenia gravis with (acute) exacerbation Status: Acute Assessment and Plan: neurology on board given new diagnosis of MG- started on steroids and ivig (3) Acute respiratory failure: Code(s): J96.00 - Acute respiratory failure, unspecified whether with hypoxia or hypercapnia Status: Acute Assessment and Plan: intubated to protect airway (4) Ptosis, left eyelid: Code(s): H02.402 - Unspecified ptosis of left eyelid Status: Acute Subjective Date/time seen: 11/26/22 13:17 Interval history: no changes, intubated, on medical therapy for possible MG Review of Systems Review of Systems: All systems reviewed & are unremarkable except as noted in HPI and below Exam Narrative: General: Pt is sedated, intubated and on mechanical ventilation Lungs/Chest: Trachea central Coarse BS B/L, No crackles or wheezing. Cardiac: RRR. Normal S1 S2. No murmurs Circulation: Pedal pulses are intact and symmetrical. Abdomen: Decreased bowel sounds. Obese. Soft. NT. ND. Extremities: No clubbing, cyanosis or edema. Warm : Kern in place Neurologic: Currently unable to assess due to sedation. PERRL Skin: No Rash HEENT: hoarse and weak voice Objective Data Vital Signs Vital Signs: Vital Signs - 24 hr 11/25/22 14:00 11/25/22 14:00 11/25/22 14:37 Temperature 98.2 F Pulse Rate 72 72 71 Respiratory Rate 18 Blood Pressure 122/78 Pulse Oximetry 96 97 Oxygen Delivery Mechanical Ventilation Fraction of Inspired Oxygen 35 11/25/22 14:37 11/25/22 14:42 11/25/22 16:00 Temperature Pulse Rate 74 74 68 Respiratory Rate 18 18 Blood Pressure Pulse Oximetry Oxygen Delivery Fraction of Inspired Oxygen 11/25/22 16:00 11/25/22 16:00 11/25/22 16:00 Temperature 98 F Pulse Rate 68 68 Respiratory Rate 18 18 Blood Pressure 117/75 Pulse Oximetry 95 95 Oxygen Delivery Mechanical Ventilation Fraction of Inspired Oxygen 35 35 11/25/22 17:27 11/25/22 18:00 11/25/22 18:00 Temperature 98 F Pulse Rate 69 75 66 Respiratory Rate 18 Blood Pressure 120/80 Pulse Oximetry 94 95 Oxygen Delivery Mechanical Ventilation Fraction of Inspired Oxygen 35 11/25/22 20:00 11/25/22 20:00 11/25/22 20:10 Temperature 97.9 F Pulse Rate 71 67 70 Respiratory Rate 18 18 18 Blood Pressure 103/68 Pulse Oximetry 96 Oxygen Delivery Fraction of Inspired Oxygen 11/25/22 20:00 11/25/22 22:00 11/25/22 23:22 Temperature 98.6 F 98.4 F Pulse Rate 68 62 59 L Respiratory Rate 18 18 Blood Pressure 104/65 104/63 Pulse Oximetry 96 95 95 Oxygen Delivery Mechanical Ventilation Fraction of Inspired Oxygen 35 11/25/22 23:00 11/25/22 20:00 11/26/22 00:00 Temperature Pulse Rate 49 L Respiratory Rate Blood Pressure Pulse Oximetry 96 Oxygen Delivery Mechanical Ventilation Fraction of Inspired Oxygen 35 35 35 11/25/22 20:00 11/25/22 22:00 11/26/22 00:00 Temperature Pulse Rate 62 66 55 L Respiratory Rate Blood Pressure Pulse Oximetry Oxygen Delivery Fraction of Inspired Oxygen 11/26/22 02:25 11/26/22 02:22 11/26/22 02:31 Temperature Pulse Rate 53 L 52 L 60 Respiratory Rate 18 18 Blood Pressure Pulse Oximetry 97 Oxygen Delivery Mechanical Ventilation Fraction of Inspired Oxygen 35 11/26/22 02:00 11/26/22 02:00 11/26/22 03:08 Temperature 97.5 F L Pulse Rate 53 L 53 L 58 L Respiratory Rate 18 18 Blood Pressure 112/71 Pulse Oximetry 97 97 Oxygen Delivery Mechan
[2022-11-26 15:32] LABS: Glucose Point of Care 192 mg/dl (65-105)
[2022-11-26] MEDS: MIDAZOLAM 100MG/NS 100ML(*CRX) 100 MG/100 ML BAG IV CONT (17:16)
[2022-11-26 18:15] LABS: Glucose Point of Care 183 mg/dl (65-105)
--- NOTE | 2022-11-26 18:40 | PC.NURSE ---
Patient has become increasingly agitated throughout the evening. Patient became Tachy and coughing. Turned up sedation to 75 and then to 100. Patient HR and BP are stable. will continue to monitor. Patient is drowsy but arousable and can follow commands.
[2022-11-26] MEDS: FENTANYL 2,500MCG/NS250ML(*CRX 2,500 MCG/250 ML BAG 10 MCG IV CONT (18:46)
[2022-11-26] MEDS: CENTRAL LINE FLUSH 10 ML IV PUSH (20:39)
[2022-11-26 23:34] LABS: Glucose Point of Care 168 mg/dl (65-105)
[2022-11-27] VITALS (34 sets, daily range): BP systolic 110–151; BP diastolic 60–88; PULSE 62–134; RESP 9–22; TEMP 37.1–37.7; O2SAT 95–99
[2022-11-27] MEDS: IPRATROPIUM BR 0.02% INH SOLN 0.5 MG/2.5 ML VIAL INHALATION ×3 (01:05→13:39)
[2022-11-27] MEDS: ALBUTEROL SULFATE NEB 2.5 MG/3 ML INH INHALATION ×3 (01:05→13:39)
[2022-11-27 04:50] LABS: Alveolar/Arterial O2 Gradient 103.1 mmHg; Base Excess ABG 0.2 mEq/l (+/-2.0); Carboxyhemoglobin 0.3 % THb (0-2.0); Fractional Inspired Oxygen 30 %; HCO3 ABG 23.1 mEq/l (22.0-26.0); Methemoglobin ABG 0.3 %THb (0-1.5); Oxygen Content ABG 18.8 %vol (16.0-22.0); Oxygen Saturation ABG 95.7 % (95.0-100.0); Oxyhemoglobin 94.9 % THb (90.0-100.0); PCO2 ABG 32.2 mmHg (35.0-45.0); PO2 FiO2 Ratio Arterial Blood 2.43 %; Reduced Hemoglobin 4.5 %THb (0-5.0); Total Hemoglobin 14.1 g/dL (12.0-18.0); pH ABG 7.473 (7.350-7.450)
[2022-11-27 04:54] LABS: Modified Allen's Test Pass; Site Drawn RIGHT RADIAL
[2022-11-27 04:56] LABS: Device VENTILATOR
[2022-11-27 04:59] LABS: Arterial Blood Gas PEEP 5 cmH2O; Arterial Blood Gas Tidal Volume 400 ml; Arterial Blood Gas Vent Mode CMV; Arterial Blood Gas Ventilator rate 16 /MIN
[2022-11-27 05:17] LABS: Basophils Absolute Auto 0.1 K/mm3 (0.0-0.1); Basophils Percent Auto 0.4 % (0.2-1.2); Hematocrit 39.7 % (37.0-47.0); Immature Granulocyte Absolute 0.38 K/mm3 (0.00-0.031); Immature Granulocyte Percent A 2.5 % (0-0.5); Lymphocytes Absolute Auto 1.37 K/mm3 (0.9-3.2); Mean Corpuscular HGB Conc 32.7 g/dl (32-36); Mean Corpuscular Hemoglobin 30.4 pg (26-34); Mean Platelet Volume 9.5 fl (7.4-10.4); Monocytes Absolute Auto 1.3 K/mm3 (0.1-0.6); Monocytes Percent Auto 8.5 % (2.6-8.5); Neutrophils Absolute Auto 12.1 K/mm3 (1.3-6.7); Neutrophils Percent Auto 79.6 % (45.5-73.1); Platelet Count Result 323 k/mm3 (150-375); Red Blood Count 4.27 M/mm3 (4.2-5.4); Red Cell Distribution Width 15.1 % (11.5-14.5); White Blood Count 15.2 K/mm3 (4.5-10.0)
[2022-11-27] MEDS: CENTRAL LINE FLUSH 10 ML IV PUSH ×3 (05:17→20:30)
[2022-11-27 05:24] LABS: Glucose Point of Care 155 mg/dl (65-105)
[2022-11-27 05:29] LABS: Anion Gap 0 mmol/L (8-16); Blood Urea Nitrogen 27 mg/dL (7-17); Calcium 7.4 mg/dL (8.4-10.2); Carbon Dioxide 26 mmol/L (22-30); Chloride 110 mmol/L (98-107); Estimated CRCL calculation 99 ml/min; Estimated Glomerular Filt Rate > 60; Glucose 145 mg/dL (65-110); Magnesium 2.1 mg/dL (1.6-2.3); Potassium 3.7 mmol/L (3.4-5.0); Sodium 136 mmol/L (137-145)
[2022-11-27 08:40] LABS: Alveolar/Arterial O2 Gradient 89.4 mmHg; Carboxyhemoglobin 0.3 % THb (0-2.0); Device VENTILATOR; Fractional Inspired Oxygen 30 %; HCO3 ABG 24.4 mEq/l (22.0-26.0); Methemoglobin ABG 0.4 %THb (0-1.5); Modified Allen's Test Pass; Oxygen Content ABG 20.3 %vol (16.0-22.0); Oxygen Saturation ABG 96.7 % (95.0-100.0); Oxyhemoglobin 95.5 % THb (90.0-100.0); PCO2 ABG 35.3 mmHg (35.0-45.0); PO2 FiO2 Ratio Arterial Blood 2.77 %; Reduced Hemoglobin 3.8 %THb (0-5.0); Site Drawn LEFT RADIAL; Total Hemoglobin 15.1 g/dL (12.0-18.0); pH ABG 7.457 (7.350-7.450)
[2022-11-27 08:41] LABS: Arterial Blood Gas PEEP 5 cmH2O; Arterial Blood Gas Pressure Support 5 cmH2O; Arterial Blood Gas Vent Mode SPONTANEOUS
--- NOTE | 2022-11-27 08:45 | WPDINTPN ---
Progress Note: A&P Assessment and Plan (1) Acute respiratory failure: Code(s): J96.00 - Acute respiratory failure, unspecified whether with hypoxia or hypercapnia Status: Acute Assessment and Plan: Acute respiratory failure secondary to myasthenia crisis. On arrival to ICU patient was requiring 2 L of oxygen and her chest x-ray showed Minimal pleural effusions with minimal bibasilar atelectatic change. I checked her vital capacity and it was 1750 mL which was adequate but her NIF was only -18 cm water despite multiple attempts Her ABG 7.34/ 52/ 85 showed respiratory acidosis hypercarbia Patient had respiratory weakness hypoventilation and hypercarbia/respiratory acidosis I discussed with patient regarding proceeding with with elective intubation at this time. I explained the risks and benefits of intubation and mechanical ventilation and she verbalized understanding and agreed to proceed. 11/25 patient was electively intubated ABG and chest x-ray reviewed 11/26 Decrease respiratory rate to 16 11/27 ABG reviewed and I will decrease tidal volume to 350 and rate to 14 Patient was placed on sedation holiday and a weaning trial was performed. Although patient RSBI was adequate, patient's NIF was only -20. Patient not ready for extubation. Will continue PSV as long as patient tolerates and recheck NIF later again today (2) Myasthenia gravis in crisis: Code(s): G70.01 - Myasthenia gravis with (acute) exacerbation Status: Acute Assessment and Plan: patient presented with these symptoms of ptosis of left eye, right facial droop, difficulty in swallowing and speech weakness of her extremities upper extremities. initial imaging Soft tissue neck No significant abnormalities noted. Chest CTA No evidence of pulmonary embolus, aortic dissection, or aortic aneurysm. No significant pulmonary abnormality Transferred to ICU yesterday due to worsening of symptoms and was intubated for respiratory failure Neurology following Continue IVIG Continue steroids but change to daily q.a.m. dose She seems to be clinically improving as her ptosis of the left eye has resolved (3) Difficulty in swallowing: Code(s): R13.10 - Dysphagia, unspecified Status: Acute Assessment and Plan: see above GI is following and planning do EGD but the symptoms could be secondary to myasthenia Continue tube feeding (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 Status: Acute Assessment and Plan: Not sure if patient had Membreno's palsy or was misdiagnosed myasthenia (5) Asthma: Code(s): J45.909 - Unspecified asthma, uncomplicated Status: Acute Assessment and Plan: she is on steroids which will be continued continue bronchodilators Plan DVT prophylaxis - Lovenox Stress ulcer prophylaxis - PPI Nutrition -continue Tube Feeds Code Status - Full Code Total Critical Care Time - 35 minutes Due to a high probability of clinically significant, life threatening deterioration, the patient required my highest level of preparedness to intervene emergently and I personally spent this critical care time directly and personally managing the patient. This critical care time included obtaining a history; examining the patient; pulse oximetry; ordering and review of studies; arranging urgent treatment with development of a management plan; evaluation of patient's response to treatment; frequent reassessment; and discussions with other providers. It was exclusive of separately billable procedures and treating other patients and teaching time. Please see Assessment and Plan section and the rest of the note for further information on patient assessment and treatment Subjective Date/time seen: 11/27/22 Overnight events reviewed. Afebrile Continues to be on mechanical ventilation 30% FiO2 Adequate urine output Continues to be sedated with low-dose fentanyl Versed Vitals acceptable Tolerating
[2022-11-27] MEDS: CALCIUM GLUC 2,000 MG/NS 100ML 2,000 MG/100 ML BAG 100 MG IVPB (09:00)
[2022-11-27] MEDS: predniSONE 20 MG TABLET 60 MG FEED TUBE (09:30)
[2022-11-27] MEDS: MINERAL OIL/WHITE PETROLATUM OINTMENT 1 APPLIC EACH EYE ×2 (09:30→20:31)
[2022-11-27] MEDS: FLUTICASONE PROPIONATE 0.05% NA SPR 16 GM BTL (*BKC) 2 SPRAY NASAL (09:30)
[2022-11-27] MEDS: PANTOPRAZOLE SODIUM IV 40 MG VIAL IV PUSH (09:30)
[2022-11-27] MEDS: ENOXAPARIN 40 MG/0.4 ML SYRINGE SUB-Q (09:30)
[2022-11-27] MEDS: POTASSIUM BICARBONATE 25 MEQ TABEF 50 MEQ FEED TUBE (10:03)
[2022-11-27 14:54] LABS: Glucose Point of Care 189 mg/dl (65-105)
--- NOTE | 2022-11-27 15:24 | PM.IMPN ---
Progress Note: A&P Assessment and Plan (1) Acute respiratory failure: Code(s): J96.00 - Acute respiratory failure, unspecified whether with hypoxia or hypercapnia Status: Acute Assessment and Plan: Acute respiratory failure secondary to myasthenia crisis. On arrival to ICU patient was requiring 2 L of oxygen and her chest x-ray showed Minimal pleural effusions with minimal bibasilar atelectatic change. I checked her vital capacity and it was 1750 mL which was adequate but her NIF was only -18 cm water despite multiple attempts Her ABG 7.34/ 52/ 85 showed respiratory acidosis hypercarbia Patient had respiratory weakness hypoventilation and hypercarbia/respiratory acidosis I discussed with patient regarding proceeding with with elective intubation at this time. I explained the risks and benefits of intubation and mechanical ventilation and she verbalized understanding and agreed to proceed. 11/25 patient was electively intubated ABG and chest x-ray reviewed 11/26 Decrease respiratory rate to 16 11/27 ABG reviewed and I will decrease tidal volume to 350 and rate to 14 Patient was placed on sedation holiday and a weaning trial was performed. Although patient RSBI was adequate, patient's NIF was only -20. Patient not ready for extubation. Will continue PSV as long as patient tolerates and recheck NIF later again today (2) Myasthenia gravis in crisis: Code(s): G70.01 - Myasthenia gravis with (acute) exacerbation Status: Acute Assessment and Plan: patient presented with these symptoms of ptosis of left eye, right facial droop, difficulty in swallowing and speech weakness of her extremities upper extremities. initial imaging Soft tissue neck No significant abnormalities noted. Chest CTA No evidence of pulmonary embolus, aortic dissection, or aortic aneurysm. No significant pulmonary abnormality Transferred to ICU yesterday due to worsening of symptoms and was intubated for respiratory failure Neurology following Continue IVIG Continue steroids but change to daily q.a.m. dose She seems to be clinically improving as her ptosis of the left eye has resolved (3) Difficulty in swallowing: Code(s): R13.10 - Dysphagia, unspecified Status: Acute Assessment and Plan: see above GI is following and planning do EGD but the symptoms could be secondary to myasthenia Continue tube feeding (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 Status: Acute Assessment and Plan: Not sure if patient had Membreno's palsy or was misdiagnosed myasthenia (5) Asthma: Code(s): J45.909 - Unspecified asthma, uncomplicated Status: Acute Assessment and Plan: she is on steroids which will be continued continue bronchodilators Plan Acute hypoxemic respiratory failure intubated continue daily sedation holidays monitor Myasthenia crisis Continue IVIG and Steroids Neurology following Dysphagia GI following DVT prophylaxis - Lovenox Stress ulcer prophylaxis - PPI Nutrition -continue Tube Feeds Code Status - Full Code Subjective Date/time seen: 11/27/22 15:24 Interval history: patient intubated at bedside. Review of Systems Review of Systems: All systems reviewed & are unremarkable except as noted in HPI and below ( HPI) ROS unobtainable: Yes unobtainable due to endotracheal tube and unobtainable due to medical condition Constitutional: Constitutional: Reports weakness Neurologic: Reports Abnormal speech present (difficulty speaking and swallowing, worse than when I saw her yesterday) and Reports weakness Psychiatric: Psychiatric: Reports anxiety Exam Narrative: General: Pt is sedated, intubated and on mechanical ventilation Lungs/Chest: Trachea central Coarse BS B/L, No crackles or wheezing. Cardiac: RRR. Normal S1 S2. No murmurs Circulation: Pedal pulses are intact and symmetrical. Abdomen: Decreased bowel sounds. Obese.
[2022-11-27 18:18] LABS: Glucose Point of Care 171 mg/dl (65-105)
--- NOTE | 2022-11-27 18:30 | PC.NURSE ---
Patient tolerated vent trial very well. Sedation off at 07:40, Trial began at 07:45. Patients jori not strong enough to extubate. Patient resumed vent settings and sedation at 17:45.
[2022-11-27 23:44] LABS: Glucose Point of Care 173 mg/dl (65-105)
[2022-11-28] VITALS (42 sets, daily range): BP systolic 110–156; BP diastolic 76–105; PULSE 64–124; RESP 12–24; TEMP 28.8–37.5; O2SAT 96–99
[2022-11-28] MEDS: IPRATROPIUM BR 0.02% INH SOLN 0.5 MG/2.5 ML VIAL INHALATION ×4 (02:51→20:02)
[2022-11-28] MEDS: ALBUTEROL SULFATE NEB 2.5 MG/3 ML INH INHALATION ×4 (02:54→20:02)
[2022-11-28 04:57] LABS: Basophils Absolute Auto 0.1 K/mm3 (0.0-0.1); Basophils Percent Auto 0.9 % (0.2-1.2); Eosinophils Percent Auto 0.1 % (0-4.4); Hematocrit 41.4 % (37.0-47.0); Hemoglobin 13.5 g/dL (12.0-15.0); Immature Granulocyte Absolute 0.51 K/mm3 (0.00-0.031); Immature Granulocyte Percent A 3.6 % (0-0.5); Lymphocytes Absolute Auto 1.66 K/mm3 (0.9-3.2); Lymphocytes Percent Auto 11.8 % (18.3-44.2); Mean Corpuscular HGB Conc 32.6 g/dl (32-36); Mean Corpuscular Hemoglobin 30.1 pg (26-34); Mean Corpuscular Volume 92.2 fl (80-100); Mean Platelet Volume 9.8 fl (7.4-10.4); Monocytes Absolute Auto 1.4 K/mm3 (0.1-0.6); Neutrophils Absolute Auto 10.3 K/mm3 (1.3-6.7); Neutrophils Percent Auto 73.6 % (45.5-73.1); Platelet Count Result 284 k/mm3 (150-375); Red Blood Count 4.49 M/mm3 (4.2-5.4); Red Cell Distribution Width 15.1 % (11.5-14.5)
[2022-11-28 05:45] LABS: Alveolar/Arterial O2 Gradient 71.7 mmHg; Base Excess ABG 1.7 mEq/l (+/-2.0); Carboxyhemoglobin 0.3 % THb (0-2.0); Fractional Inspired Oxygen 30 %; HCO3 ABG 26.2 mEq/l (22.0-26.0); Methemoglobin ABG 0.4 %THb (0-1.5); Oxygen Content ABG 20.3 %vol (16.0-22.0); Oxygen Saturation ABG 97.3 % (95.0-100.0); Oxyhemoglobin 96.5 % THb (90.0-100.0); PCO2 ABG 41.1 mmHg (35.0-45.0); PO2 ABG 93.9 mmHg (80.0-100.0); PO2 FiO2 Ratio Arterial Blood 3.13 %; Reduced Hemoglobin 2.8 %THb (0-5.0); Total Hemoglobin 14.9 g/dL (12.0-18.0); pH ABG 7.423 (7.350-7.450)
[2022-11-28 05:46] LABS: Device VENTILATOR; Modified Allen's Test Pass; Site Drawn RIGHT RADIAL
[2022-11-28 05:47] LABS: Arterial Blood Gas PEEP 5 cmH2O; Arterial Blood Gas Tidal Volume 350 ml; Arterial Blood Gas Vent Mode CMV; Arterial Blood Gas Ventilator rate 14 /MIN
[2022-11-28] MEDS: CENTRAL LINE FLUSH 10 ML IV PUSH ×3 (06:05→20:49)
--- NOTE | 2022-11-28 08:08 | WPDINTPN ---
Progress Note: A&P Assessment and Plan (1) Acute respiratory failure: Code(s): J96.00 - Acute respiratory failure, unspecified whether with hypoxia or hypercapnia Status: Acute Assessment and Plan: Acute respiratory failure secondary to myasthenia crisis. On arrival to ICU patient was requiring 2 L of oxygen and her chest x-ray showed Minimal pleural effusions with minimal bibasilar atelectatic change. I checked her vital capacity and it was 1750 mL which was adequate but her NIF was only -18 cm water despite multiple attempts Her ABG 7.34/ 52/ 85 showed respiratory acidosis hypercarbia Patient had respiratory weakness hypoventilation and hypercarbia/respiratory acidosis. I discussed with patient regarding proceeding with with elective intubation at this time. I explained the risks and benefits of intubation and mechanical ventilation and she verbalized understanding and agreed to proceed. 11/25 patient was electively intubated 11/26 Decrease respiratory rate to 16 11/27 ABG reviewed and I will decrease tidal volume to 350 and rate to 14 Patient was placed on sedation holiday and a weaning trial was performed. Although patient RSBI was adequate, patient's NIF was only -20. Patient not ready for extubation. Patient tolerated PSV most of the day 11/28 patient placed on sedation holiday. Will try PSV again today. Will check NIF ABG and chest x-ray reviewed (2) Myasthenia gravis in crisis: Code(s): G70.01 - Myasthenia gravis with (acute) exacerbation Status: Acute Assessment and Plan: Patient presented with these symptoms of ptosis of left eye, right facial droop, difficulty in swallowing and speech weakness of her extremities upper extremities. Initial imaging Soft tissue neck No significant abnormalities noted. Chest CTA No evidence of pulmonary embolus, aortic dissection, or aortic aneurysm. No significant pulmonary abnormality Transferred to ICU yesterday due to worsening of symptoms and was intubated for respiratory failure Neurology following Continue IVIG Continue steroids but change to daily q.a.m. dose She seems to be clinically improving as her ptosis of the left eye has resolved (3) Difficulty in swallowing: Code(s): R13.10 - Dysphagia, unspecified Status: Acute Assessment and Plan: see above GI is following and planning do EGD but the symptoms could be secondary to myasthenia Continue tube feeding at this time (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 Status: Acute Assessment and Plan: Not sure if patient had Membreno's palsy or was misdiagnosed myasthenia (5) Asthma: Code(s): J45.909 - Unspecified asthma, uncomplicated Status: Acute Assessment and Plan: she is on steroids which will be continued continue bronchodilators Plan DVT prophylaxis - Lovenox Stress ulcer prophylaxis - PPI Nutrition -continue Tube Feeds Code Status - Full Code Total Critical Care Time - 32 minutes Due to a high probability of clinically significant, life threatening deterioration, the patient required my highest level of preparedness to intervene emergently and I personally spent this critical care time directly and personally managing the patient. This critical care time included obtaining a history; examining the patient; pulse oximetry; ordering and review of studies; arranging urgent treatment with development of a management plan; evaluation of patient's response to treatment; frequent reassessment; and discussions with other providers. It was exclusive of separately billable procedures and treating other patients and teaching time. Please see Assessment and Plan section and the rest of the note for further information on patient assessment and treatment Subjective Date/time seen: 11/28/22 Overnight events reviewed. Afebrile Continues to be on mechanical ventilation 30% FiO2. Not ready for extubation yesterday due to low neg
[2022-11-28] MEDS: ENOXAPARIN 40 MG/0.4 ML SYRINGE SUB-Q (09:09)
[2022-11-28] MEDS: PANTOPRAZOLE SODIUM IV 40 MG VIAL IV PUSH (09:10)
[2022-11-28] MEDS: predniSONE 20 MG TABLET 60 MG FEED TUBE (09:10)
[2022-11-28] MEDS: MINERAL OIL/WHITE PETROLATUM OINTMENT 1 APPLIC EACH EYE ×2 (09:10→20:49)
[2022-11-28] MEDS: FLUTICASONE PROPIONATE 0.05% NA SPR 16 GM BTL (*BKC) 2 SPRAY NASAL (09:11)
--- NOTE | 2022-11-28 11:39 | PCFNICU ---
ICU Rounding Note: Pt current nutrition is Vital AF 1.2 at 50 ml/hr. Last recorded weight is 72.9 kg. Bowel Motility: No Bm reported. Labs Reviewed:no new labs to report. Meds Noted: Lovenox, Protonix, Propofol Skin: WNL Additional Notes: Patient remains on mechanical vent and tube feedings of Vital AF 1.2 at 50ml/hr. Propofol at 2.178 ml/hr providing an additional 58 kcls. Total nutrition: 1378 kcals/83 gms protein/892 ml water. Tube feeding meeting 94% kcal needs and 100% protein needs. Flush 30 ml q 4 hours. Following daily in ICU rounds. Will monitor every Monday and Monday.
[2022-11-28 12:09] LABS: Alanine Aminotransferase 69 U/L (6-35); Albumin Level 3.5 g/dL (3.5-5.1); Alkaline Phosphatase 81 U/L (38-126); Anion Gap 1 mmol/L (8-16); Aspartate Amino Transferase 64 U/L (14-36); Bilirubin,Total 0.9 mg/dL (0.2-1.3); Blood Urea Nitrogen 22 mg/dL (7-17); Calcium 8.1 mg/dL (8.4-10.2); Carbon Dioxide 32 mmol/L (22-30); Chloride 104 mmol/L (98-107); Estimated CRCL calculation 84 ml/min; Estimated Glomerular Filt Rate > 60; Glucose 175 mg/dL (65-110); Sodium 137 mmol/L (137-145); Triglycerides 121 mg/dL (<150)
[2022-11-28 14:26] LABS: Glucose Point of Care 251 mg/dl (65-105)
[2022-11-28] MEDS: INSULIN ASPART (*BKC) 100 UNITS/ML SUB-Q (14:26)
--- NOTE | 2022-11-28 16:30 | PM.IMPN ---
Progress Note: A&P Assessment and Plan (1) Acute respiratory failure: Code(s): J96.00 - Acute respiratory failure, unspecified whether with hypoxia or hypercapnia Status: Acute Assessment and Plan: Acute respiratory failure secondary to myasthenia crisis. pt to wean of the ventilator (2) Myasthenia gravis in crisis: Code(s): G70.01 - Myasthenia gravis with (acute) exacerbation Status: Acute Assessment and Plan: patient presented with these symptoms of ptosis of left eye, right facial droop, difficulty in swallowing and speech weakness of her extremities upper extremities. pt started on immunoglobulins (3) Difficulty in swallowing: Code(s): R13.10 - Dysphagia, unspecified Status: Acute Assessment and Plan: GI is following and planning do EGD but the symptoms could be secondary to myasthenia Continue tube feeding (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 Status: Acute Assessment and Plan: Not sure if patient had Membreno's palsy or was misdiagnosed myasthenia (5) Asthma: Code(s): J45.909 - Unspecified asthma, uncomplicated Status: Acute Assessment and Plan: she is on steroids which will be continued continue bronchodilators Plan Acute hypoxemic respiratory failure intubated continue daily sedation holidays Myasthenia crisis Continue IVIG and Steroids Neurology following Dysphagia GI following DVT prophylaxis - Lovenox Stress ulcer prophylaxis - PPI Nutrition -continue Tube Feeds Code Status - Full Code Subjective Date/time seen: 11/28/22 16:30 Interval history: Patient intubated at bedside.Pt communicating with a communication board. Pt has recent diagnosis of MG receiving immunoglobulin. 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 Pt to admitted to ICU or acute respiratory failure, dysphagia and new diagnosis of MG Review of Systems Review of Systems: No specific complaints All systems reviewed & are unremarkable except as noted in HPI and below ( HPI) ROS unobtainable: Yes unobtainable due to endotracheal tube and unobtainable due to medical condition Exam Narrative: General: Pt is sedated, intubated and on mechanical ventilation Lungs/Chest:decreased BS Cardiac: RRR. Normal S1 S2. No murmurs Circulation: Pedal pulses are intact and symmetrical. Abdomen: Decreased bowel sounds. Obese. Soft. NT. ND. Extremities: No clubbing, cyanosis or edema. Warm : Kern in place Neurologic: Patient lightly sedated but still awake and follows commands with all 4 extremities, ptosis of left eye Objective Data Vital Signs Vital Signs: Vital Signs - 24 hr 11/27/22 17:32 11/27/22 17:45 11/27/22 17:45 Temperature Pulse Rate 124 H 114 H 114 H Respiratory Rate 16 16 Blood Pressure Pulse Oximetry 97 Oxygen Delivery Mechanical Ventilation Fraction of Inspired Oxygen 30 11/27/22 18:00 11/27/22 18:33 11/27/22 18:00 Temperature 37.6 C H Pulse Rate 96 89 94 Respiratory Rate 14 14 Blood Pressure 131/83 Pulse Oximetry 96 Oxygen Delivery Fraction of Inspired Oxygen 11/27/22 20:38 11/27/22 20:41 11/27/22 20:00 Temperature Pulse Rate 104 H 105 H 90 Respiratory Rate 16 18 Blood Pressure Pulse Oximetry 97 97 Oxygen Delivery Mechanical Ventilation Mechanical Ventilation Fraction of Inspired Oxygen 30 30 11/27/22 20:00 11/27/22 20:00 11/27/22 20:53 Temperature 37.3 C Pulse Rate 88 102 H Respiratory Rate 18 16 Blood Pressure 118/77 Pulse Oximetry 97 Oxygen Delivery Fraction of Inspired Oxygen 30 11/27/22 20:00 11/27/22 22:00 11/27/22 22:00 Temperature 37.1 C Pulse Rate 80 71 76 Respiratory Rate 15 Blood Pressure 116/78 Pulse Oximetry 97 Oxygen Delivery Fraction of Inspired Oxygen 11/27/22 22:04 11/27/22 22:04 11/27/22 23:35 Temperature Pulse Rate 72 75 65 Respiratory Rate 14 14 Blood Pressur
[2022-11-28] MEDS: PROPOFOL IV EMULSION 100 ML 2.19 MG IV CONT (16:38)
[2022-11-28] MEDS: polyethylene glycoL 3350 17 GM POWD.PACK PO (17:29)
[2022-11-28 18:23] LABS: Glucose Point of Care 155 mg/dl (65-105)
[2022-11-28] MEDS: PROPOFOL IV EMULSION 100 ML 19.68 MG IV CONT (20:49)
[2022-11-29] VITALS (39 sets, daily range): BP systolic 117–145; BP diastolic 78–96; PULSE 92–122; RESP 9–21; TEMP 37.4–37.9; O2SAT 91–100
[2022-11-29] LABS: Glucose Point of Care 138 mg/dl (65-105)
[2022-11-29] MEDS: PROPOFOL IV EMULSION 100 ML 19.68 MG IV CONT ×2 (01:49→07:21)
[2022-11-29] MEDS: IPRATROPIUM BR 0.02% INH SOLN 0.5 MG/2.5 ML VIAL INHALATION ×4 (02:06→20:26)
[2022-11-29] MEDS: ALBUTEROL SULFATE NEB 2.5 MG/3 ML INH INHALATION (02:06)
[2022-11-29] MEDS: CENTRAL LINE FLUSH 10 ML IV PUSH ×3 (05:19→22:11)
[2022-11-29 05:26] LABS: Glucose Point of Care 121 mg/dl (65-105)
[2022-11-29 05:36] LABS: Base Excess ABG 3.5 mEq/l (+/-2.0); Carboxyhemoglobin 0.2 % THb (0-2.0); Fractional Inspired Oxygen 30 %; HCO3 ABG 27.8 mEq/l (22.0-26.0); Methemoglobin ABG 0.4 %THb (0-1.5); Oxygen Content ABG 20.1 %vol (16.0-22.0); Oxygen Saturation ABG 96.9 % (95.0-100.0); Oxyhemoglobin 96.3 % THb (90.0-100.0); PCO2 ABG 40.9 mmHg (35.0-45.0); PO2 ABG 86.8 mmHg (80.0-100.0); PO2 FiO2 Ratio Arterial Blood 2.89 %; Reduced Hemoglobin 3.1 %THb (0-5.0); Total Hemoglobin 14.8 g/dL (12.0-18.0)
[2022-11-29 05:43] LABS: Arterial Blood Gas Vent Mode CMV; Arterial Blood Gas Ventilator rate 14 /MIN; Device VENTILATOR; Modified Allen's Test Pass; Site Drawn LEFT RADIAL
[2022-11-29 05:44] LABS: Arterial Blood Gas PEEP 5 cmH2O; Arterial Blood Gas Tidal Volume 350 ml
[2022-11-29 06:51] LABS: Basophils Absolute Auto 0.1 K/mm3 (0.0-0.1); Basophils Percent Auto 0.7 % (0.2-1.2); Eosinophils Absolute Auto 0.1 K/mm3 (0-0.3); Eosinophils Percent Auto 0.3 % (0-4.4); Hematocrit 46.2 % (37.0-47.0); Hemoglobin 14.8 g/dL (12.0-15.0); Immature Granulocyte Percent A 3.6 % (0-0.5); Lymphocytes Absolute Auto 2.28 K/mm3 (0.9-3.2); Lymphocytes Percent Auto 13.7 % (18.3-44.2); Mean Corpuscular Hemoglobin 30.6 pg (26-34); Mean Corpuscular Volume 95.5 fl (80-100); Mean Platelet Volume 9.7 fl (7.4-10.4); Monocytes Absolute Auto 1.7 K/mm3 (0.1-0.6); Monocytes Percent Auto 9.9 % (2.6-8.5); Neutrophils Absolute Auto 11.9 K/mm3 (1.3-6.7); Neutrophils Percent Auto 71.8 % (45.5-73.1); Platelet Count Result 286 k/mm3 (150-375); Red Blood Count 4.84 M/mm3 (4.2-5.4); Red Cell Distribution Width 15.2 % (11.5-14.5); White Blood Count 16.6 K/mm3 (4.5-10.0)
[2022-11-29 07:07] LABS: Magnesium 2.2 mg/dL (1.6-2.3)
[2022-11-29 07:57] LABS: Alanine Aminotransferase 103 U/L (6-35); Albumin Level 3.6 g/dL (3.5-5.1); Alkaline Phosphatase 75 U/L (38-126); Anion Gap 1 mmol/L (8-16); Aspartate Amino Transferase 101 U/L (14-36); Bilirubin,Total 1.2 mg/dL (0.2-1.3); Blood Urea Nitrogen 24 mg/dL (7-17); Calcium 8.3 mg/dL (8.4-10.2); Carbon Dioxide 32 mmol/L (22-30); Chloride 104 mmol/L (98-107); Estimated CRCL calculation 84 ml/min; Estimated Glomerular Filt Rate > 60; Glucose 104 mg/dL (65-110); Sodium 137 mmol/L (137-145)
[2022-11-29] MEDS: predniSONE 20 MG TABLET 60 MG FEED TUBE (08:02)
[2022-11-29] MEDS: ENOXAPARIN 40 MG/0.4 ML SYRINGE SUB-Q (08:02)
[2022-11-29] MEDS: MINERAL OIL/WHITE PETROLATUM OINTMENT 1 APPLIC EACH EYE ×2 (08:03→20:46)
[2022-11-29] MEDS: polyethylene glycoL 3350 17 GM POWD.PACK PO (08:03)
[2022-11-29] MEDS: FLUTICASONE PROPIONATE 0.05% NA SPR 16 GM BTL (*BKC) 2 SPRAY NASAL (08:03)
[2022-11-29] MEDS: PANTOPRAZOLE SODIUM IV 40 MG VIAL IV PUSH (08:03)
--- NOTE | 2022-11-29 08:37 | WPDINTPN ---
Progress Note: A&P Assessment and Plan (1) Acute respiratory failure: Code(s): J96.00 - Acute respiratory failure, unspecified whether with hypoxia or hypercapnia Status: Acute Assessment and Plan: Acute respiratory failure secondary to myasthenia crisis. Intubated 11/25/2022 -11/25: On arrival to ICU patient was requiring 2 L of oxygen and her chest x-ray showed Minimal pleural effusions with minimal bibasilar atelectatic change. I checked her vital capacity and it was 1750 mL which was adequate but her NIF was only -18 cm water despite multiple attempts Her ABG 7.34/ 52/ 85 showed respiratory acidosis hypercarbia -Patient had respiratory weakness hypoventilation and hypercarbia/respiratory acidosis. I discussed with patient regarding proceeding with with elective intubation at this time. I explained the risks and benefits of intubation and mechanical ventilation and she verbalized understanding and agreed to proceed. 11/27: Patient was placed on sedation holiday and a weaning trial was performed. Although patient RSBI was adequate, patient's NIF was only -20. Patient not ready for extubation. Patient tolerated PSV most of the day 11/28 patient placed on sedation holiday. Will try PSV again today. NIF was regained low -ABG and chest x-ray reviewed 11/29: Have asked the bedside RN to decrease the sedation, will place patient on pressure support ventilation and check NIF/MIP (2) Myasthenia gravis in crisis: Code(s): G70.01 - Myasthenia gravis with (acute) exacerbation Status: Acute Assessment and Plan: Patient presented with these symptoms of ptosis of left eye, right facial droop, difficulty in swallowing and speech weakness of her extremities upper extremities. Initial imaging Soft tissue neck No significant abnormalities noted. Chest CTA No evidence of pulmonary embolus, aortic dissection, or aortic aneurysm. 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 Status: Acute Assessment and Plan: Not sure if patient had Membreno's palsy or was misdiagnosed myasthenia (5) Asthma: Code(s): J45.909 - Unspecified asthma, uncomplicated Status: Acute Assessment and Plan: she is on steroids which will be continued continue bronchodilators Plan DVT prophylaxis - Lovenox Stress ulcer prophylaxis - PPI Nutrition -continue Tube Feeds Code Status - Full Code Total Critical Care Time - 35 minutes Due to a high probability of clinically significant, life threatening deterioration, the patient required my highest level of preparedness to intervene emergently and I personally spent this critical care time directly and personally managing the patient. This critical care time included obtaining a history; examining the patient; pulse oximetry; ordering and review of studies; arranging urgent treatment with development of a management plan; evaluation of patient's response to treatment; frequent reassessment; and discussions with other providers. It was exclusive of separately billable procedures and treating other patients and teaching time. Please see Assessment and Plan section and the rest of the note for further information on patient assessment and treatment Subjective Date/time seen: 11/29/22 08:37 Interval history: 57 year old female history of asthma and kidney stones admi
--- NOTE | 2022-11-29 11:19 | PCNFU ---
Nutrition Follow-Up Complete: Inadequate Oral Intake as related to mechanical vent as evidenced by NPO. Goal: Meet estimated nutritional needs. Patient is progressing towards goal. We will continue current goal. Pt current nutrition is Glucerna 1.2 at 50 ml/hr. Last recorded weight is 72.6 kg. Bowel Motility:No BM reported Labs Reviewed:Cr 0.6,BUN 24 Meds Noted:Dulcolax, Miralax,Protonix, Lovenox, Prednisone, Propofol 15 ychj=360 kcals. Skin:WNL Additional Notes: Patient remains on mechanical vent. Tube feedings being tolerated of Glucerna 1.2 at 50 ml/hr. Tube feedings providing 1320 kcals/66 gms protein/886 ml water. Total Nutrition: 1609 kcals/66 gms protein/886 ml water. Flush 30 ml q 4 hours. Agree with diet orders. Will monitor in ICU rounds and reassess every Monday and Monday.
[2022-11-29 11:31] LABS: Glucose Point of Care 192 mg/dl (65-105)
[2022-11-29 12:17] LABS: Alveolar/Arterial O2 Gradient 75.4 mmHg; Fractional Inspired Oxygen 30 %; HCO3 ABG 30.1 mEq/l (22.0-26.0); Oxygen Content ABG 20.4 %vol (16.0-22.0); Oxygen Saturation ABG 97.3 % (95.0-100.0); Oxyhemoglobin 96.5 % THb (90.0-100.0); PCO2 ABG 41.6 mmHg (35.0-45.0); PO2 ABG 89.6 mmHg (80.0-100.0); PO2 FiO2 Ratio Arterial Blood 2.99 %; pH ABG 7.478 (7.350-7.450)
[2022-11-29 12:18] LABS: Arterial Blood Gas PEEP 5 cmH2O; Arterial Blood Gas Pressure Support 8 cmH2O; Arterial Blood Gas Vent Mode SPONTANEOUS; Device VENTILATOR; Modified Allen's Test Pass; Site Drawn LEFT RADIAL
[2022-11-29 13:07] LABS: Hepatitis B Surface Antigen Negative (Negative)
[2022-11-29 13:12] LABS: HAV RESULT Negative (Negative); Hepatitis B Core IgM Result Negative (Negative)
[2022-11-29 13:24] LABS: Hepatitis C Virus Antibody Negative (Negative)
[2022-11-29] MEDS: ALTEPLASE 2 MG VIAL (CATHFLO) 4 MG IV PUSH (14:33)
[2022-11-29 18:39] LABS: Glucose Point of Care 164 mg/dl (65-105)
[2022-11-29] MEDS: SENNA/DOCUSATE SODIUM TABLET 1 TAB PO (20:46)
[2022-11-30] VITALS (22 sets, daily range): BP systolic 112–137; BP diastolic 81–98; PULSE 82–124; RESP 14–21; TEMP 37.5–37.8; O2SAT 92–99
[2022-11-30 00:04] LABS: Glucose Point of Care 138 mg/dl (65-105)
[2022-11-30] MEDS: IPRATROPIUM BR 0.02% INH SOLN 0.5 MG/2.5 ML VIAL INHALATION ×4 (02:32→20:08)
[2022-11-30 04:38] LABS: Basophils Absolute Auto 0.1 K/mm3 (0.0-0.1); Basophils Percent Auto 0.8 % (0.2-1.2); Eosinophils Absolute Auto 0.1 K/mm3 (0-0.3); Eosinophils Percent Auto 0.3 % (0-4.4); Hematocrit 43.6 % (37.0-47.0); Hemoglobin 14.1 g/dL (12.0-15.0); Immature Granulocyte Absolute 0.63 K/mm3 (0.00-0.031); Immature Granulocyte Percent A 3.8 % (0-0.5); Lymphocytes Absolute Auto 2.27 K/mm3 (0.9-3.2); Lymphocytes Percent Auto 13.5 % (18.3-44.2); Mean Corpuscular HGB Conc 32.3 g/dl (32-36); Mean Corpuscular Hemoglobin 30.4 pg (26-34); Mean Platelet Volume 10.1 fl (7.4-10.4); Monocytes Absolute Auto 1.7 K/mm3 (0.1-0.6); Monocytes Percent Auto 10.1 % (2.6-8.5); Neutrophils Percent Auto 71.5 % (45.5-73.1); Platelet Count Result 282 k/mm3 (150-375); Red Blood Count 4.64 M/mm3 (4.2-5.4); Red Cell Distribution Width 15.8 % (11.5-14.5); White Blood Count 16.8 K/mm3 (4.5-10.0)
[2022-11-30 05:26] LABS: Alanine Aminotransferase 125 U/L (6-35); Albumin Level 3.3 g/dL (3.5-5.1); Alkaline Phosphatase 102 U/L (38-126); Anion Gap 3 mmol/L (8-16); Aspartate Amino Transferase 56 U/L (14-36); Bilirubin,Total 0.7 mg/dL (0.2-1.3); Blood Urea Nitrogen 29 mg/dL (7-17); Calcium 8.4 mg/dL (8.4-10.2); Carbon Dioxide 34 mmol/L (22-30); Chloride 103 mmol/L (98-107); Estimated CRCL calculation 99 ml/min; Estimated Glomerular Filt Rate > 60; Glucose 118 mg/dL (65-110); Magnesium 2.2 mg/dL (1.6-2.3); Phosphorus 4.3 mg/dL (2.5-4.5); Potassium 3.9 mmol/L (3.4-5.0); Sodium 140 mmol/L (137-145); Triglycerides 153 mg/dL (<150)
[2022-11-30 05:41] LABS: Alveolar/Arterial O2 Gradient 42.5 mmHg; Base Excess ABG 6.9 mEq/l (+/-2.0); Carboxyhemoglobin 0.4 % THb (0-2.0); Fractional Inspired Oxygen 21 %; HCO3 ABG 31.1 mEq/l (22.0-26.0); Methemoglobin ABG 0.4 %THb (0-1.5); Oxygen Content ABG 18.9 %vol (16.0-22.0); Oxygen Saturation ABG 91.5 % (95.0-100.0); Oxyhemoglobin 91.6 % THb (90.0-100.0); PCO2 ABG 42.1 mmHg (35.0-45.0); PO2 ABG 56.8 mmHg (80.0-100.0); Reduced Hemoglobin 7.6 %THb (0-5.0); Total Hemoglobin 14.7 g/dL (12.0-18.0); pH ABG 7.486 (7.350-7.450)
[2022-11-30] MEDS: CENTRAL LINE FLUSH 10 ML IV PUSH ×3 (05:41→20:13)
[2022-11-30 05:42] LABS: Device ROOM AIR; Modified Allen's Test Pass; Site Drawn LEFT RADIAL
[2022-11-30 07:34] LABS: Triglycerides 155 mg/dL (<150)
[2022-11-30] MEDS: ENOXAPARIN 40 MG/0.4 ML SYRINGE SUB-Q (08:51)
[2022-11-30] MEDS: polyethylene glycoL 3350 17 GM POWD.PACK PO (08:51)
[2022-11-30] MEDS: predniSONE 20 MG TABLET 60 MG FEED TUBE (08:51)
[2022-11-30] MEDS: PANTOPRAZOLE SODIUM IV 40 MG VIAL IV PUSH (08:51)
--- NOTE | 2022-11-30 08:54 | WPDINTPN ---
Progress Note: A&P Assessment and Plan (1) Acute respiratory failure: Code(s): J96.00 - Acute respiratory failure, unspecified whether with hypoxia or hypercapnia Status: Acute Assessment and Plan: Acute respiratory failure secondary to myasthenia crisis. Intubated 11/25/2022 -11/25: On arrival to ICU patient was requiring 2 L of oxygen and her chest x-ray showed Minimal pleural effusions with minimal bibasilar atelectatic change. I checked her vital capacity and it was 1750 mL which was adequate but her NIF was only -18 cm water despite multiple attempts Her ABG 7.34/ 52/ 85 showed respiratory acidosis hypercarbia Extubated on 11/29/2021, her NIF/MIP was -40 prior to extubation -currently on room air with adequate O2 sats -will have PT/OT evaluate the patient, up in chair -encourage incentive spirometry -speech to evaluate for swallow test (2) Myasthenia gravis in crisis: Code(s): G70.01 - Myasthenia gravis with (acute) exacerbation Status: Acute Assessment and Plan: Patient presented with these symptoms of ptosis of left eye, right facial droop, difficulty in swallowing and speech weakness of her extremities upper extremities. Initial imaging Soft tissue neck No significant abnormalities noted. Chest CTA No evidence of pulmonary embolus, aortic dissection, or aortic aneurysm. No significant pulmonary abnormality 11/25: Transferred to ICU yesterday due to worsening of symptoms and was intubated for respiratory failure -appreciate neurology following the patient -Continue IVIG x5 doses -Continue prednisone daily -She seems to be clinically improving as her ptosis of the left eye has resolved (3) Difficulty in swallowing: Code(s): R13.10 - Dysphagia, unspecified Status: Acute Assessment and Plan: see above GI is following , no plan for EGD at this time as the symptoms could be secondary to myasthenia Continue tube feeding at this time Speech to evaluate for swallow test (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 Status: Acute Assessment and Plan: Not sure if patient had Membreno's palsy or was misdiagnosed myasthenia (5) Asthma: Code(s): J45.909 - Unspecified asthma, uncomplicated Status: Acute Assessment and Plan: she is on steroids which will be continued continue bronchodilators Plan DVT prophylaxis - Lovenox Stress ulcer prophylaxis - PPI Nutrition -continue Tube Feeds Code Status - Full Code Total Critical Care Time - 33 minutes Due to a high probability of clinically significant, life threatening deterioration, the patient required my highest level of preparedness to intervene emergently and I personally spent this critical care time directly and personally managing the patient. This critical care time included obtaining a history; examining the patient; pulse oximetry; ordering and review of studies; arranging urgent treatment with development of a management plan; evaluation of patient's response to treatment; frequent reassessment; and discussions with other providers. It was exclusive of separately billable procedures and treating other patients and teaching time. Please see Assessment and Plan section and the rest of the note for further information on patient assessment and treatment Subjective Date/time seen: 11/30/22 08:54 Interval history: 57 year old female history of asthma and kidney stones admitted due to shortness of breath with concerns for myasthenia gravis. She lives with. Patient is willing for number of months and has changes in his speech. She presented the ED print looping of her left eyelid, was diagnosed with Membreno's palsy amount of fluids given steroids and Valtrex. Patient continued to have persistent drooping of her left eyelid, she did also have weakness in her upper extremities. 09/13/2016 she had decline in her respiratory status and was intubated, her NIF was -18 Patient was sta
--- NOTE | 2022-11-30 11:04 | PC.NURSE ---
Patient up to bedside commode with a walker, Mcdermott belt and OT. Patient on room air, no distress noted.
--- NOTE | 2022-11-30 11:07 | PCFNICU ---
ICU Rounding Note: Pt current nutrition is Vital 1.2 @ 50 ml/h: 1320 kcals, 83 g protein, 892 ml free water. Flushes 30 ml q 4 hours. Nutrition recommendation: Continue TF awaiting speech eval Last recorded weight is 72.6 kg. Bowel Motility: No BMs. Bowel regimen in place Labs Reviewed: Alb 3.3, BUN 29, Cre 0.5 Meds Noted: Lovenox, protonix, miralax, dulcolax, Skin: WNL Additional Notes: Extubated yesterday and awaiting swallow evaluation. Continue tube feeds until cleared for swallowing. No sedation. Agree with orders. Following daily in ICU rounds. Will monitor every Monday and Monday. .
[2022-11-30] MEDS: INSULIN ASPART (*BKC) 100 UNITS/ML SUB-Q (12:20)
[2022-11-30 12:33] LABS: Glucose Point of Care 223 mg/dl (65-105)
--- NOTE | 2022-11-30 15:26 | PCSTNOTE ---
Patient seen for modified barium swallow study (MBBS). Trace pooling in valleculae observed with thin (by straw), moderately thick (by straw), and pureed consistencies. Residue cleared with second swallow. Speech therapy is recommended for this patient to address swallowing. Diet texture recommendation: regular diet with thin liquids. Swallowing precaution recommendations placed in chart. Thank you for the referral of this patient. [ End ]
--- NOTE | 2022-11-30 15:30 | PCSTNOTE ---
Patient seen for modified barium swallow study (MBSS). Patient has ng tube and has been NPO status while in ICU. MBSS revealed aspiration with thin liquids by straw, and penetration with mildly thickened liquids and pureed by straw. Patient coughed and attempted to expell thin liquid bolus but was unable. Recommendation: NPO. Speech therapy to address swallowing. Thank you for the referral of this patient.
[2022-11-30 18:10] LABS: Glucose Point of Care 151 mg/dl (65-105)
--- NOTE | 2022-11-30 19:05 | PC.NURSE ---
Patient needs letter to prove she is in the hospital. It needs to be faxed to [facility]. . Phone number [phone].
[2022-11-30 23:23] LABS: Glucose Point of Care 138 mg/dl (65-105)
[2022-12-01] VITALS (18 sets, daily range): BP systolic 112–136; BP diastolic 76–93; PULSE 86–119; RESP 15–23; TEMP 37.4–37.9; O2SAT 91–97
[2022-12-01] MEDS: IPRATROPIUM BR 0.02% INH SOLN 0.5 MG/2.5 ML VIAL INHALATION ×4 (01:47→21:15)
[2022-12-01 04:40] LABS: Basophils Absolute Auto 0.1 K/mm3 (0.0-0.1); Basophils Percent Auto 0.6 % (0.2-1.2); Eosinophils Percent Auto 0.3 % (0-4.4); Hematocrit 42.2 % (37.0-47.0); Hemoglobin 13.9 g/dL (12.0-15.0); Immature Granulocyte Absolute 0.44 K/mm3 (0.00-0.031); Immature Granulocyte Percent A 2.9 % (0-0.5); Lymphocytes Absolute Auto 2.33 K/mm3 (0.9-3.2); Lymphocytes Percent Auto 15.1 % (18.3-44.2); Mean Corpuscular HGB Conc 32.9 g/dl (32-36); Mean Corpuscular Hemoglobin 30.1 pg (26-34); Mean Corpuscular Volume 91.3 fl (80-100); Mean Platelet Volume 9.9 fl (7.4-10.4); Monocytes Absolute Auto 1.7 K/mm3 (0.1-0.6); Neutrophils Absolute Auto 10.8 K/mm3 (1.3-6.7); Neutrophils Percent Auto 70.1 % (45.5-73.1); Platelet Count Result 285 k/mm3 (150-375); Red Blood Count 4.62 M/mm3 (4.2-5.4); Red Cell Distribution Width 15.2 % (11.5-14.5); White Blood Count 15.4 K/mm3 (4.5-10.0)
[2022-12-01 04:52] LABS: Alanine Aminotransferase 117 U/L (6-35); Albumin Level 3.3 g/dL (3.5-5.1); Alkaline Phosphatase 88 U/L (38-126); Anion Gap 4 mmol/L (8-16); Aspartate Amino Transferase 42 U/L (14-36); Bilirubin,Total 0.6 mg/dL (0.2-1.3); Blood Urea Nitrogen 33 mg/dL (7-17); Calcium 8.5 mg/dL (8.4-10.2); Carbon Dioxide 32 mmol/L (22-30); Chloride 105 mmol/L (98-107); Estimated CRCL calculation 100 ml/min; Estimated Glomerular Filt Rate > 60; Glucose 119 mg/dL (65-110); Phosphorus 4.4 mg/dL (2.5-4.5); Potassium 3.8 mmol/L (3.4-5.0); Sodium 141 mmol/L (137-145)
[2022-12-01] MEDS: CENTRAL LINE FLUSH 10 ML IV PUSH ×3 (05:44→20:04)
[2022-12-01] MEDS: PANTOPRAZOLE SODIUM IV 40 MG VIAL IV PUSH (08:53)
[2022-12-01] MEDS: predniSONE 20 MG TABLET 60 MG FEED TUBE (08:53)
[2022-12-01] MEDS: ENOXAPARIN 40 MG/0.4 ML SYRINGE SUB-Q (08:53)
--- NOTE | 2022-12-01 11:25 | PCNFU ---
Nutrition Follow-Up Complete: Inadequate Oral Intake as related to mechanical vent as evidenced by NPO. Goal: Meet estimated nutritional needs. We will continue current goal. Pt current nutrition is Glucerna 1.2 at 50 ml/hr. Last recorded weight is 74.3 kg. Bowel Motility:+Bm reported 11/30 Labs Reviewed:Glu 119, Cr 0.5,BUN 33 Meds Noted:Prednisone,Protonix, Atrovent Skin: WNL Additional Notes: Patient extubated. MBS 11/29-failed. NGT in place, tube feedings of Glucerna 1.2 restarted at 50 ml/hr. Tube feedings meeting 89% kcal needs/100% protein needs. Flush 30 ml q 4 hours. Agree with diet orders. Will monitor every Monday and Monday.
[2022-12-01 13:02] LABS: Glucose Point of Care 189 mg/dl (65-105)
--- NOTE | 2022-12-01 16:04 | PM.IMPN ---
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 Intubated 11/25/2022. Chest x-ray with minimal pleural effusion with minimal bibasilar atelectatic change. NIF was only -18 cm water despite multiple attempts. ABG 7.34/52/85 swelling respiratory acidosis hypercarbia. Extubated 11/29/2021. NIF minus forty prior to extubation On room air with adequate saturation continue incentive spirometry # myasthenia gravis in crisis: Patient presented with symptoms of steatosis of left eye right facial droop, difficulty in swallowing and speech weakness of for upper extremities. Soft tissue neck with no significant abnormalities. CT chest CTA no evidence of pulmonary embolus aortic dissection or aortic aneurysm. Status post IVIG times 5 doses. Continue prednisone daily. Clinically improved with improvement of left eye ptosis # dysphagia: GI consulted. No plans of EGD. [place] to be secondary to myasthenia. MBS done and failed. Tube feed running # Membreno's palsy: Unsure if he had Membreno's palsy or was misdiagnosed with myasthenia # asthma: On steroid and continue bronchodilators # DVT prophylaxis Lovenox # Nutrition -continue Tube Feeds # code Status - Full Code Subjective Date/time seen: 12/01/22 16:04 Interval history: 57 year old female history of asthma and kidney stones admitted due to shortness of breath with concerns for myasthenia gravis. She lives with. Patient is willing for number of months and has changes in his speech. She presented the ED print looping of her left eyelid, was diagnosed with Membreno's palsy amount of fluids given steroids and Valtrex. Patient continued to have persistent drooping of her left eyelid, she did also have weakness in her upper extremities. 09/13/2016 she had decline in her respiratory status and was intubated, her NIF was -18 Patient was started on IVIG on 11/25 Extubated on 11/2911/30/2022: Patient seen examined the ICU, was extubated successfully yesterday and remains on room air this morning. Answers to question appropriately, denies any shortness of breath, chest pain, abdominal pain, nausea, vomiting. Patient has a NG tube had tolerating tube feeds. T-max of 100.2?, hemodynamically stable an adequate urine output 12/01/2022: Patient was transferred to the ICU yesterday. Chart reviewed. Feeling better. Still has some mild fever on. Denies any cough or shortness of breath chest pain abdominal pain. NG in place and tolerating tube. Failed swallow eval. Review of Systems Review of Systems: All systems reviewed & are unremarkable except as noted in HPI and below ( HPI) Exam Narrative: General: Patient is awake, alert, pleasant personality NG in place with tube feeds running Lungs/Chest: Clear to auscultation bilaterally except decreased at bases, Adequate air entry Cardiac: Sinus tachycardia, normal S1-S2 Circulation: Pedal pulses are intact and symmetrical. Abdomen: Normoactive bowel sounds. Obese. Soft. NT. ND. Extremities: No clubbing, cyanosis or edema. Warm : Kern in place Neurologic: Patient is awake, alert, oriented, nonfocal, strength 4/5 in upper and lower extremities Objective Data Vital Signs Vital Signs: Vital Signs - 24 hr 11/30/22 18:00 11/30/22 18:00 11/30/22 20:00 Temperature 99.8 F H 99.6 F Pulse Rate 120 H 120 H 88 Respiratory Rate 17 19 [place]oo
[2022-12-01 17:06] LABS: Glucose Point of Care 148 mg/dl (65-105)
[2022-12-02] VITALS (15 sets, daily range): BP systolic 123–131; BP diastolic 86–94; PULSE 91–119; RESP 14–21; TEMP 36.8–37.8; O2SAT 91–95
[2022-12-02 00:31] LABS: Glucose Point of Care 124 mg/dl (65-105)
[2022-12-02] MEDS: IPRATROPIUM BR 0.02% INH SOLN 0.5 MG/2.5 ML VIAL INHALATION ×3 (02:10→14:10)
[2022-12-02 05:05] LABS: Basophils Absolute Auto 0.1 K/mm3 (0.0-0.1); Basophils Percent Auto 0.7 % (0.2-1.2); Eosinophils Absolute Auto 0.1 K/mm3 (0-0.3); Eosinophils Percent Auto 0.4 % (0-4.4); Hematocrit 44.6 % (37.0-47.0); Hemoglobin 14.5 g/dL (12.0-15.0); Immature Granulocyte Absolute 0.31 K/mm3 (0.00-0.031); Immature Granulocyte Percent A 2.2 % (0-0.5); Lymphocytes Absolute Auto 2.95 K/mm3 (0.9-3.2); Lymphocytes Percent Auto 21.3 % (18.3-44.2); Mean Corpuscular HGB Conc 32.5 g/dl (32-36); Mean Corpuscular Hemoglobin 30.1 pg (26-34); Mean Corpuscular Volume 92.7 fl (80-100); Mean Platelet Volume 10.1 fl (7.4-10.4); Monocytes Absolute Auto 1.3 K/mm3 (0.1-0.6); Monocytes Percent Auto 9.7 % (2.6-8.5); Neutrophils Absolute Auto 9.1 K/mm3 (1.3-6.7); Neutrophils Percent Auto 65.7 % (45.5-73.1); Platelet Count Result 276 k/mm3 (150-375); Red Blood Count 4.81 M/mm3 (4.2-5.4); Red Cell Distribution Width 15.4 % (11.5-14.5); White Blood Count 13.8 K/mm3 (4.5-10.0)
[2022-12-02] MEDS: CENTRAL LINE FLUSH 10 ML IV PUSH ×3 (05:59→20:06)
[2022-12-02 06:06] LABS: Glucose Point of Care 104 mg/dl (65-105)
[2022-12-02 08:22] LABS: Triglycerides 175 mg/dL (<150)
[2022-12-02 08:25] LABS: Alanine Aminotransferase 99 U/L (6-35); Albumin Level 3.5 g/dL (3.5-5.1); Alkaline Phosphatase 92 U/L (38-126); Anion Gap 4 mmol/L (8-16); Aspartate Amino Transferase 47 U/L (14-36); Bilirubin,Total 0.6 mg/dL (0.2-1.3); Blood Urea Nitrogen 32 mg/dL (7-17); Calcium 8.7 mg/dL (8.4-10.2); Carbon Dioxide 31 mmol/L (22-30); Chloride 105 mmol/L (98-107); Estimated CRCL calculation 101 ml/min; Estimated Glomerular Filt Rate > 60; Glucose 110 mg/dL (65-110); Magnesium 2.1 mg/dL (1.6-2.3); Sodium 140 mmol/L (137-145)
[2022-12-02] MEDS: PANTOPRAZOLE SODIUM IV 40 MG VIAL IV PUSH (08:31)
[2022-12-02] MEDS: ENOXAPARIN 40 MG/0.4 ML SYRINGE SUB-Q (08:31)
[2022-12-02] MEDS: FLUTICASONE PROPIONATE 0.05% NA SPR 16 GM BTL (*BKC) 2 SPRAY NASAL (08:31)
[2022-12-02] MEDS: predniSONE 20 MG TABLET 60 MG FEED TUBE (08:31)
[2022-12-02 11:34] LABS: Glucose Point of Care 176 mg/dl (65-105)
--- NOTE | 2022-12-02 11:45 | PCNFU ---
Nutrition Follow-Up Complete: Inadequate Oral Intake as related to mechanical vent as evidenced by NPO. Goal: Meet estimated nutritional needs. Patient is progressing towards goal. We will continue current goal. Pt current nutrition is Glucerna 1.2 at 50 ml/hr. Last recorded weight is 75.3 kg. Bowel Motility: +Bm reported 12/02 Labs Reviewed: BUN 32, Cr 0.5 Meds Noted:Prednisone, Protonix Skin: WNL Additional Notes: Patient remains on tube feedings of Glucerna 1.2 at 50 ml/hr and tolerating per nursing. Speech therapy treatment this morning. Plans to continue with NGT feedings. Tube feedings providing 1320 kcals/66/ gms protein/886 ml water. Flush 30 ml q 4 hours. Agree with diet orders. Will monitor every Monday and Monday.
--- NOTE | 2022-12-02 15:53 | PM.IMPN ---
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 Intubated 11/25/2022. Chest x-ray with minimal pleural effusion with minimal bibasilar atelectatic change. NIF was only -18 cm water despite multiple attempts. ABG 7.34/52/85 Suggesting respiratory acidosis hypercarbia. Extubated 11/29/2021. NIF minus forty prior to extubation On room air with adequate saturation continue incentive spirometry # myasthenia gravis in crisis: Patient presented with symptoms of steatosis of left eye right facial droop, difficulty in swallowing and speech weakness of for upper extremities. Soft tissue neck with no significant abnormalities. CT chest CTA no evidence of pulmonary embolus aortic dissection or aortic aneurysm. Status post IVIG times 5 doses. Continue prednisone daily. Clinically improved with improvement of left eye ptosis #Fever intermittent unclear etiology WBC count continues to improve. Will panculture and remove Kern check UA # dysphagia: GI consulted. No plans of EGD. Era to be secondary to myasthenia. MBS done and failed. Tube feed running # Membreno's palsy: Unsure if he had Membreno's palsy or was misdiagnosed with myasthenia # asthma: On steroid and continue bronchodilators # DVT prophylaxis Lovenox # Nutrition -continue Tube Feeds # code Status - Full Code Subjective Date/time seen: 12/02/22 15:53 Interval history: 57 year old female history of asthma and kidney stones admitted due to shortness of breath with concerns for myasthenia gravis. She lives with. Patient is willing for number of months and has changes in his speech. She presented the ED print looping of her left eyelid, was diagnosed with Membreno's palsy amount of fluids given steroids and Valtrex. Patient continued to have persistent drooping of her left eyelid, she did also have weakness in her upper extremities. 09/13/2016 she had decline in her respiratory status and was intubated, her NIF was -18 Patient was started on IVIG on 11/25 Extubated on 11/2911/30/2022: Patient seen examined the ICU, was extubated successfully yesterday and remains on room air this morning. Answers to question appropriately, denies any shortness of breath, chest pain, abdominal pain, nausea, vomiting. Patient has a NG tube had tolerating tube feeds. T-max of 100.2?, hemodynamically stable an adequate urine output 12/01/2022: Patient was transferred to the ICU yesterday. Chart reviewed. Feeling better. Still has some mild fever on. Denies any cough or shortness of breath chest pain abdominal pain. NG in place and tolerating tube. Failed swallow eval. 12/02/2022: No overnight events. Intermittent fever persists. No cough. Denies shortness of breath. No abdominal pain or nausea vomiting. NG in place. Review of Systems Review of Systems: All systems reviewed & are unremarkable except as noted in HPI and below ( HPI) Exam Narrative: General: Patient is awake, alert, pleasant personality NG in place with tube feeds running Lungs/Chest: Clear to auscultation bilaterally except decreased at bases, Adequate air entry Cardiac: Sinus tachycardia, normal S1-S2 Circulation: Pedal pulses are intact and symmetrical. Abdomen: Normoactive bowel sounds. Obese. Soft. NT. ND. Extremities: No clubbing, cyanosis or edema. Warm : Kern in place Neurologic: Patient is niru
[2022-12-02 16:46] LABS: Appearance Urine Cloudy (Clear); Bacteria Urine None Seen /hpf; Bilirubin Urine Negative (Negative); Blood Urine 2+ (Negative); Color Urine Yellow (Yellow); Glucose Urine UA Negative (Negative); Hyaline Casts Urine Present /lpf; Ketones Urine Negative (Negative); Leukocyte Esterase Ur 2+ LEU/UL (NEGATIVE); Nitrate Urine Positive (Negative); Non Pathogenic Casts 0-2; Protein Urine Trace mg/dL (Negative); RBC Urine 21-50 /hpf (0-2); Specific Grav Ur 1.024 (1.001-1.035); Squamous Epithelial Cell Urine None seen /hpf (Few); WBC Urine 21-50 /hpf (0-3); pH Urine 6.5 (5.0-9.0)
[2022-12-02 16:47] LABS: Add Urine Microscopic? YES
[2022-12-02 17:50] LABS: Glucose Point of Care 146 mg/dl (65-105)
--- NOTE | 2022-12-02 21:27 | PC.NURSE ---
This patient, Urvashi Donovan, was transferred to [room 246] on 12/02/22 at 2115. Personal belongings sent with patient. Report given to [ANJELICA Atkins]. Appropriate documentation sent with patient.
[2022-12-03] VITALS (12 sets, daily range): BP systolic 121–130; BP diastolic 78–84; PULSE 74–117; RESP 16–18; TEMP 36.8; O2SAT 93–96
[2022-12-03] MEDS: IPRATROPIUM BR 0.02% INH SOLN 0.5 MG/2.5 ML VIAL INHALATION ×2 (02:52→09:13)
[2022-12-03 06:04] LABS: Basophils Absolute Auto 0.1 K/mm3 (0.0-0.1); Basophils Percent Auto 0.4 % (0.2-1.2); Eosinophils Percent Auto 0.2 % (0-4.4); Hematocrit 44.8 % (37.0-47.0); Hemoglobin 14.5 g/dL (12.0-15.0); Immature Granulocyte Absolute 0.24 K/mm3 (0.00-0.031); Immature Granulocyte Percent A 1.7 % (0-0.5); Lymphocytes Absolute Auto 2.43 K/mm3 (0.9-3.2); Lymphocytes Percent Auto 17.7 % (18.3-44.2); Mean Corpuscular HGB Conc 32.4 g/dl (32-36); Mean Corpuscular Hemoglobin 30.5 pg (26-34); Mean Corpuscular Volume 94.1 fl (80-100); Mean Platelet Volume 10.1 fl (7.4-10.4); Monocytes Absolute Auto 1.4 K/mm3 (0.1-0.6); Monocytes Percent Auto 9.9 % (2.6-8.5); Neutrophils Absolute Auto 9.6 K/mm3 (1.3-6.7); Neutrophils Percent Auto 70.1 % (45.5-73.1); Platelet Count Result 272 k/mm3 (150-375); Red Blood Count 4.76 M/mm3 (4.2-5.4); White Blood Count 13.8 K/mm3 (4.5-10.0)
[2022-12-03 06:17] LABS: Alanine Aminotransferase 104 U/L (6-35); Albumin Level 3.6 g/dL (3.5-5.1); Alkaline Phosphatase 91 U/L (38-126); Anion Gap 6 mmol/L (8-16); Aspartate Amino Transferase 56 U/L (14-36); Bilirubin,Total 0.6 mg/dL (0.2-1.3); Blood Urea Nitrogen 29 mg/dL (7-17); Calcium 8.8 mg/dL (8.4-10.2); Carbon Dioxide 28 mmol/L (22-30); Chloride 108 mmol/L (98-107); Estimated CRCL calculation 83 ml/min; Estimated Glomerular Filt Rate > 60; Glucose 102 mg/dL (65-110); Magnesium 2.1 mg/dL (1.6-2.3); Phosphorus 4.7 mg/dL (2.5-4.5); Potassium 3.5 mmol/L (3.4-5.0); Sodium 142 mmol/L (137-145)
[2022-12-03] MEDS: CENTRAL LINE FLUSH 10 ML IV PUSH ×3 (06:31→21:53)
[2022-12-03] MEDS: FLUTICASONE PROPIONATE 0.05% NA SPR 16 GM BTL (*BKC) 2 SPRAY NASAL (08:18)
[2022-12-03] MEDS: ENOXAPARIN 40 MG/0.4 ML SYRINGE SUB-Q (08:19)
[2022-12-03] MEDS: PANTOPRAZOLE SODIUM IV 40 MG VIAL IV PUSH (08:20)
[2022-12-03] MEDS: predniSONE 20 MG TABLET 60 MG FEED TUBE (08:24)
[2022-12-03 12:10] LABS: Glucose Point of Care 186 mg/dl (65-105)
--- NOTE | 2022-12-03 13:50 | PM.IMPN ---
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 Intubated 11/25/2022. Chest x-ray with minimal pleural effusion with minimal bibasilar atelectatic change. NIF was only -18 cm water despite multiple attempts. ABG 7.34/52/85 Suggesting respiratory acidosis hypercarbia. Extubated 11/29/2021. NIF minus forty prior to extubation On room air with adequate saturation continue incentive spirometry # myasthenia gravis in crisis: Patient presented with symptoms of steatosis of left eye right facial droop, difficulty in swallowing and speech weakness of for upper extremities. Soft tissue neck with no significant abnormalities. CT chest CTA no evidence of pulmonary embolus aortic dissection or aortic aneurysm. Status post IVIG times 5 doses. Continue prednisone daily. Clinically improved with improvement of left eye ptosis #Fever intermittent unclear etiology WBC count continues to improve. Pancultured. Fever is finally coming down. Kern has been removed UA suggestive of UTI. Started on ceftriaxone 1 g IV daily. Follow culture. Chest x-ray was improving. # dysphagia: GI consulted. No plans of EGD. [place] to be secondary to myasthenia. MBS done and failed. Tube feed running . Will discuss with speech therapist # Membreno's palsy: Unsure if he had Membreno's palsy or was misdiagnosed with myasthenia # asthma: On steroid and continue bronchodilators # DVT prophylaxis Lovenox # Nutrition -continue Tube Feeds # code Status - Full Code Subjective Date/time seen: 12/03/22 13:50 Interval history: 57 year old female history of asthma and kidney stones admitted due to shortness of breath with concerns for myasthenia gravis. She lives with. Patient is willing for number of months and has changes in his speech. She presented the ED print looping of her left eyelid, was diagnosed with Membreno's palsy amount of fluids given steroids and Valtrex. Patient continued to have persistent drooping of her left eyelid, she did also have weakness in her upper extremities. 09/13/2016 she had decline in her respiratory status and was intubated, her NIF was -18 Patient was started on IVIG on 11/25 Extubated on 11/2911/30/2022: Patient seen examined the ICU, was extubated successfully yesterday and remains on room air this morning. Answers to question appropriately, denies any shortness of breath, chest pain, abdominal pain, nausea, vomiting. Patient has a NG tube had tolerating tube feeds. T-max of 100.2?, hemodynamically stable an adequate urine output 12/01/2022: Patient was transferred to the ICU yesterday. Chart reviewed. Feeling better. Still has some mild fever on. Denies any cough or shortness of breath chest pain abdominal pain. NG in place and tolerating tube. Failed swallow eval. 12/02/2022: No overnight events. Intermittent fever persists. No cough. Denies shortness of breath. No abdominal pain or nausea vomiting. NG in place. 12/03/2022: No new complaints. NG was accidentally dislodged and needed to be reinserted last night. Swallowing is getting stronger. Denies shortness of breath. No cough. Kern has been removed. Last spike of fever at noon yesterday. Review of Systems Review of Systems: All systems reviewed & are unremarkable except as noted in HPI and below ( HPI) Exam Narrative: General: Patient is awake,
--- NOTE | 2022-12-03 15:07 | PC.NURSE ---
Attempt x1 made to place NG. Patient upset and requesting to attempt again later.
--- NOTE | 2022-12-03 16:52 | PC.NURSE ---
Pt ng tube has come out. Nurse was attempting to reinsert the tube, but the patient stoppped her hand and said she doesn't want it put back in. Pt states she wants to speak with the physician. Dr Agrawal called & made aware of the ng coming out & the patient's desire to speak with her. Dr Agrawal says it is okay to leave the tube out but the patient will need to wait for Speech Therapist to decide whether it is safe for her to resume PO intake. Pt should remain NPO until ST clears her.
--- NOTE | 2022-12-03 17:21 | PC.NURSE ---
Pt says she doesn't want to be NPO without feedings and it will be okay to reinsert the ng tube so that she is able to receive the TF. # 16 NG tube inserted into L nare. Pt tolerated insertion very well.
[2022-12-03 19:08] LABS: Glucose Point of Care 124 mg/dl (65-105)
[2022-12-04] VITALS (9 sets, daily range): BP systolic 110–115; BP diastolic 72–78; PULSE 84–115; RESP 16–18; TEMP 36–36.6; O2SAT 95–97
[2022-12-04 00:46] LABS: Glucose Point of Care 113 mg/dl (65-105)
[2022-12-04 05:23] LABS: Basophils Absolute Auto 0.1 K/mm3 (0.0-0.1); Basophils Percent Auto 0.6 % (0.2-1.2); Eosinophils Percent Auto 0.3 % (0-4.4); Hematocrit 46.7 % (37.0-47.0); Hemoglobin 14.8 g/dL (12.0-15.0); Immature Granulocyte Absolute 0.22 K/mm3 (0.00-0.031); Immature Granulocyte Percent A 1.8 % (0-0.5); Lymphocytes Absolute Auto 2.89 K/mm3 (0.9-3.2); Lymphocytes Percent Auto 23.1 % (18.3-44.2); Mean Corpuscular HGB Conc 31.7 g/dl (32-36); Mean Corpuscular Hemoglobin 29.9 pg (26-34); Mean Corpuscular Volume 94.3 fl (80-100); Monocytes Absolute Auto 1.1 K/mm3 (0.1-0.6); Monocytes Percent Auto 8.9 % (2.6-8.5); Neutrophils Absolute Auto 8.2 K/mm3 (1.3-6.7); Neutrophils Percent Auto 65.3 % (45.5-73.1); Platelet Count Result 289 k/mm3 (150-375); Red Blood Count 4.95 M/mm3 (4.2-5.4); Red Cell Distribution Width 14.9 % (11.5-14.5); White Blood Count 12.5 K/mm3 (4.5-10.0)
[2022-12-04 05:38] LABS: Alanine Aminotransferase 125 U/L (6-35); Albumin Level 3.8 g/dL (3.5-5.1); Alkaline Phosphatase 94 U/L (38-126); Anion Gap 6 mmol/L (8-16); Aspartate Amino Transferase 70 U/L (14-36); Bilirubin,Total 0.7 mg/dL (0.2-1.3); Blood Urea Nitrogen 31 mg/dL (7-17); Carbon Dioxide 27 mmol/L (22-30); Chloride 108 mmol/L (98-107); Estimated CRCL calculation 71 ml/min; Estimated Glomerular Filt Rate > 60; Glucose 110 mg/dL (65-110); Magnesium 2.3 mg/dL (1.6-2.3); Phosphorus 4.4 mg/dL (2.5-4.5); Potassium 3.8 mmol/L (3.4-5.0); Sodium 141 mmol/L (137-145)
--- NOTE | 2022-12-04 10:51 | PM.IMPN ---
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 Intubated 11/25/2022. Chest x-ray with minimal pleural effusion with minimal bibasilar atelectatic change. NIF was only -18 cm water despite multiple attempts. ABG 7.34/52/85 Suggesting respiratory acidosis hypercarbia. Extubated 11/29/2021. NIF minus forty prior to extubation On room air with adequate saturation continue incentive spirometry # myasthenia gravis in crisis: Patient presented with symptoms of steatosis of left eye right facial droop, difficulty in swallowing and speech weakness of for upper extremities. Soft tissue neck with no significant abnormalities. CT chest CTA no evidence of pulmonary embolus aortic dissection or aortic aneurysm. Status post IVIG times 5 doses. Continue prednisone daily. Clinically improved with improvement of left eye ptosis #Fever intermittent unclear etiology WBC count continues to improve. Pancultured. Fever is finally coming down. Kern has been removed UA suggestive of UTI. Started on ceftriaxone 1 g IV daily. Follow culture. Chest x-ray was improving. # dysphagia: GI consulted. No plans of EGD. [place] to be secondary to myasthenia. MBS done and failed. Tube feed running .discussed with speech. starting modified diet today. continue ST evaluation. ng remove and tube feeds to stop # Membreno's palsy: Unsure if he had Membreno's palsy or was misdiagnosed with myasthenia # asthma: On steroid and continue bronchodilators # DVT prophylaxis Lovenox # Nutrition -continue Tube Feeds # code Status - Full Code Subjective Date/time seen: 12/04/22 10:51 Interval history: 57 year old female history of asthma and kidney stones admitted due to shortness of breath with concerns for myasthenia gravis. She lives with. Patient is willing for number of months and has changes in his speech. She presented the ED print looping of her left eyelid, was diagnosed with Membreno's palsy amount of fluids given steroids and Valtrex. Patient continued to have persistent drooping of her left eyelid, she did also have weakness in her upper extremities. 09/13/2016 she had decline in her respiratory status and was intubated, her NIF was -18 Patient was started on IVIG on 11/25 Extubated on 11/2911/30/2022: Patient seen examined the ICU, was extubated successfully yesterday and remains on room air this morning. Answers to question appropriately, denies any shortness of breath, chest pain, abdominal pain, nausea, vomiting. Patient has a NG tube had tolerating tube feeds. T-max of 100.2?, hemodynamically stable an adequate urine output 12/01/2022: Patient was transferred to the ICU yesterday. Chart reviewed. Feeling better. Still has some mild fever on. Denies any cough or shortness of breath chest pain abdominal pain. NG in place and tolerating tube. Failed swallow eval. 12/02/2022: No overnight events. Intermittent fever persists. No cough. Denies shortness of breath. No abdominal pain or nausea vomiting. NG in place. 12/03/2022: No new complaints. NG was accidentally dislodged and needed to be reinserted last night. Swallowing is getting stronger. Denies shortness of breath. No cough. Kern has been removed. Last spike of fever at noon yesterday. 12/04/2022: ng fell off again, replaced. speech saw today. discussed with speech. swallowing is melissa
[2022-12-04] MEDS: FLUTICASONE PROPIONATE 0.05% NA SPR 16 GM BTL (*BKC) 2 SPRAY NASAL (11:03)
[2022-12-04] MEDS: PANTOPRAZOLE SODIUM IV 40 MG VIAL IV PUSH (11:03)
[2022-12-04] MEDS: ENOXAPARIN 40 MG/0.4 ML SYRINGE SUB-Q (11:05)
[2022-12-04] MEDS: predniSONE 20 MG TABLET 60 MG FEED TUBE (11:05)
[2022-12-04] MEDS: CENTRAL LINE FLUSH 10 ML IV PUSH ×2 (11:18→21:20)
[2022-12-04] MEDS: IPRATROPIUM BR 0.02% INH SOLN 0.5 MG/2.5 ML VIAL INHALATION (19:58)
[2022-12-05 03:58] VITALS: BP 127/77; PULSE 89; RESP 20; TEMP 36.3; O2SAT 97
[2022-12-05] MEDS: CENTRAL LINE FLUSH 10 ML IV PUSH (05:20)
[2022-12-05 06:05] LABS: Basophils Percent Auto 0.4 % (0.2-1.2); Eosinophils Percent Auto 0.4 % (0-4.4); Hematocrit 44.4 % (37.0-47.0); Hemoglobin 14.2 g/dL (12.0-15.0); Immature Granulocyte Absolute 0.15 K/mm3 (0.00-0.031); Immature Granulocyte Percent A 1.4 % (0-0.5); Lymphocytes Absolute Auto 2.44 K/mm3 (0.9-3.2); Lymphocytes Percent Auto 22.4 % (18.3-44.2); Mean Corpuscular Hemoglobin 30.1 pg (26-34); Mean Corpuscular Volume 94.1 fl (80-100); Mean Platelet Volume 10.2 fl (7.4-10.4); Monocytes Absolute Auto 0.8 K/mm3 (0.1-0.6); Monocytes Percent Auto 7.1 % (2.6-8.5); Neutrophils Absolute Auto 7.5 K/mm3 (1.3-6.7); Neutrophils Percent Auto 68.3 % (45.5-73.1); Platelet Count Result 267 k/mm3 (150-375); Red Blood Count 4.72 M/mm3 (4.2-5.4); Red Cell Distribution Width 14.5 % (11.5-14.5); White Blood Count 10.9 K/mm3 (4.5-10.0)
[2022-12-05 06:21] LABS: Alanine Aminotransferase 101 U/L (6-35); Albumin Level 3.5 g/dL (3.5-5.1); Alkaline Phosphatase 76 U/L (38-126); Anion Gap 2 mmol/L (8-16); Aspartate Amino Transferase 45 U/L (14-36); Bilirubin,Total 0.7 mg/dL (0.2-1.3); Blood Urea Nitrogen 23 mg/dL (7-17); Calcium 8.7 mg/dL (8.4-10.2); Carbon Dioxide 31 mmol/L (22-30); Chloride 108 mmol/L (98-107); Estimated CRCL calculation 83 ml/min; Estimated Glomerular Filt Rate > 60; Glucose 90 mg/dL (65-110); Magnesium 2.1 mg/dL (1.6-2.3); Potassium 3.4 mmol/L (3.4-5.0); Sodium 141 mmol/L (137-145)
[2022-12-05] MEDS: predniSONE 20 MG TABLET 60 MG FEED TUBE (08:04)
[2022-12-05] MEDS: ENOXAPARIN 40 MG/0.4 ML SYRINGE SUB-Q (08:05)
[2022-12-05] MEDS: FLUTICASONE PROPIONATE 0.05% NA SPR 16 GM BTL (*BKC) 2 SPRAY NASAL (08:05)
[2022-12-05] MEDS: PANTOPRAZOLE SODIUM IV 40 MG VIAL IV PUSH (08:05)
--- NOTE | 2022-12-05 11:36 | WPDNEUROPN ---
Progress Note: A&P Assessment and Plan (1) Myasthenia gravis with acute exacerbation: Code(s): G70.01 - Myasthenia gravis with (acute) exacerbation Status: Acute (2) Myasthenia gravis in crisis: Code(s): G70.01 - Myasthenia gravis with (acute) exacerbation Status: Acute (3) Ptosis, left eyelid: Code(s): H02.402 - Unspecified ptosis of left eyelid Status: Acute (4) Weakness: Code(s): R53.1 - Weakness Status: Acute Plan Ms. Donovan is a 57 year old female with a history of asthma presenting who presented due to worsening respiratory status. Given left ptosis, dysarthria, dysphagia, and proximal weakness in the upper extremities, concern is highest for myasthenia gravis with acute crisis. Patient was electively intubated due to NIF. She completed a course of IVIG and was extubated. Patient denies any oculobulbar symptoms or generalied weakness. - We discussed the option of starting Mestinon, but patient is currently asymptomatic; we will re-visit this if she has recurrence of symptoms - Continue Prednisone 60mg daily - Check Acetylcholine receptor antibodies (binding, blocking, modulating), anti striated muscle ab, anti-MUSK ab and anti-LRP4 ab -- drawn and pending - I would like to have patient follow-up with me in clinic in 4-6 weeks Subjective Date/time seen: 12/05/22 11:36 Interval history: Urvashi Donovan is a 57 year old female with a history of asthma and kidney stones who was admitted due shortness of breath with concerns for myasthenia crisis. Per chart review, patient has been having difficulty swallowing for some number of months, and more recently, has had changes in her speech. She presented to the ED about a month ago due to drooping of the left eyelid. 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 Patient has had persistence drooping of the left eyelid that does not seem to fluctuate through the day. She denies any double vision. She does have weakness in her upper extremities that has also been going on for several months. Initially when patient was admitted there was concern for possible asthma exacerbation or pneumonia given patient's respiratory symptoms. She had decline in her respiratory status today and was transferred to the ICU. Dr. Mehta raised concern regarding the possibility of myasthenia gravis. Patient's NIF was -18. Decision was made to electively intubate patient. She received five days of IVIG. She was extubated and is currently on room air. As neuroimaging she had a CT head done about a month ago that was normal. She had a CTA chest with contrast that did not reveal thymoma. Patient denies any personal or family history of autoimmune conditions. Interval history: Doing well, working with PT, walking with walker, eating solids. No dysphagia, double vision, weakness of the extremities, shortness of breath. Her voice is hoarse, which she says maybe due to the ET tube. Review of Systems Constitutional: Constitutional: Reports no additional constitutional complaints Eyes: Eyes: Reports no additional eye complaints ENT: Reports system reviewed and no additional complaints, except as documented Cardiovascular: Cardiovascular: Reports no additional cardiovascular complaints Respiratory: Respiratory: Reports no additional respiratory complaints Gastrointestinal: Gastrointestinal: Reports no additional gastrointestinal complaints Genitourinary: Genitourinary: Reports no additional female genitourinary complaints Musculoskeletal: Musculoskeletal: Reports no additional musculoskeletal complaints Integumentary/Breasts: Skin/Breast: Reports system reviewed and no additional complaints, except as docu Neurologic: Reports as per HPI Psychiatric: Psychiatric: Reports no additional psychiatric complaints Exam Const: General: comfortable and no acute distress HENMT: Mouth: Yes moist mucous membranes Eyes: Pupils: Equal, round
[2022-12-05] MEDS: NEOMYCIN/POLYMYXIN/BACITRACIN OINTMENT PACKET 1 PACKET (12:57)
--- NOTE | 2022-12-05 14:01 | PCNFU ---
Nutrition Follow-Up Complete: Inadequate Oral Intake as related to mechanical vent as evidenced by NPO. Goal: Meet estimated nutritional needs. pt is meeting needs Pt current nutrition is Regular, soft and bite sized level 6. Nutrition recommendation: Continue with current plan of care. Last recorded weight is 70 kg - stable. Bowel Motility: +BM 12/04 Labs Reviewed: BUN:23, CR:0.6 Meds Noted: lovenox, prednisone, miralax Skin: WNL Additional Notes: Tube feeds d/c'd. pt evaluated again by PASSENGER TIRE BUILDER, diet advanced to regular soft and bite sized consistency, thin liquids. 100% intake at lunch and tolerated well. Agree with diet orders. Monitor intake, tolerance, wt, labs. Follow up in 7 days.
[2022-12-05 14:16] VITALS: BP 110/72; PULSE 101; RESP 14; TEMP 36.7; O2SAT 98
--- NOTE | 2022-12-05 15:02 | PM.DS ---
DS: Admitting Diagnosis Discharge Date 12/05/2022 Admitting Diagnosis Ptosis DS: Discharge Diagnosis Discharge Diagnosis (1) Acute respiratory failure: Code(s): J96.00 - Acute respiratory failure, unspecified whether with hypoxia or hypercapnia Status: Acute (2) Myasthenia gravis in crisis: Code(s): G70.01 - Myasthenia gravis with (acute) exacerbation Status: Acute (3) Difficulty in swallowing: Code(s): R13.10 - Dysphagia, unspecified Status: Acute (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 Status: Acute (5) Asthma: Code(s): J45.909 - Unspecified asthma, uncomplicated Status: Acute DS: Summary Hospital Course Hospital Course: # acute respiratory failure secondary to suspected myasthenia gravis.? Intubated 11/25/2022.? Chest x-ray with minimal pleural effusion with minimal bibasilar atelectatic change.? NIF was only -18 cm water despite multiple attempts.? ABG 7.34/52/85 ? Suggesting respiratory acidosis hypercarbia.? Extubated 11/29/2021.? NIF minus forty prior to extubation On room air with adequate saturation continue incentive spirometry # myasthenia gravis in crisis:? Patient presented with symptoms of ptosis of left eye right facial droop, difficulty in swallowing and speech weakness of for upper extremities.? Soft tissue neck with no significant abnormalities.? CT chest CTA no evidence of pulmonary embolus aortic dissection or aortic aneurysm. Status post IVIG times 5 doses.? Continue prednisone daily.? Clinically improved with improvement of left eye ptosis Seromarkers are pending at the time of discharge ?#Fever intermittent unclear etiology WBC count continues to improve. ? Pancultured.? Fever is finally coming down.? Kern has? been removed UA suggestive of UTI.? Started on ceftriaxone 1 g IV daily.? Culture with genital growth.? Chest x-ray was improving. Finished antibiotic course during the hospital stay # dysphagia:? GI consulted.? No plans of EGD.? [place] to be secondary to myasthenia.? MBS done and failed.? Tube feed running .discussed with speech. Subsequently was started on a modified diet. Will continue speech therapy with help of home health. # Membreno's palsy:? Unsure if he had Membreno's palsy or was misdiagnosed with myasthenia # asthma:? On steroid and continue bronchodilators these will be continued at discharge # DVT prophylaxis Lovenox # Nutrition on modified diet # code Status - Full Code Time Spent with Patient Time attestation: Total time spent providing and/or coordinating discharge services: 40 minutes Exam Narrative: General: Patient is awake, alert, pleasant personality NG in place with tube feeds running Lungs/Chest: Clear to auscultation bilaterally except decreased at bases, Adequate air entry Cardiac: Sinus tachycardia, normal S1-S2 Circulation: Pedal pulses are intact and symmetrical. Abdomen: Normoactive bowel sounds. Obese. Soft. NT. ND. Extremities: No clubbing, cyanosis or edema. Warm Neurologic: Patient is awake, alert, oriented, nonfocal, strength 4/5 in upper and lower extremities DS: Data Data Completed and Pending Labs on day of discharge: Labs from last 24 hours 12/05/22 12/05/22 05:42 05:42 WBC 10.9 H RBC 4.72 Hgb 14.2 Hct 44.4 MCV 94.1 MCH 30.1 MCHC 32.0 RDW 14.5 Plt Count 267 MPV 10.2 Immature Gran % (Auto) 1.4 H Neut % (Auto) 68.3 Lymph % (Auto) 22.4 [place] % (Auto) 7.1 Eos % (Auto) 0.4 Baso % (Auto) 0.4 Lymph # (Auto) 2.44 [place] # (Auto) 0.8 H Eos # (Auto) 0.0 Baso # (Auto) 0.0 Abs Immat Gran (auto) 0.15 H Absolute Neuts (auto) 7.5 H Absolute Nucleated RBC 0.0 Nucleated RBC % 0.0 Sodium 141 Potassium 3.4 Chloride 108 H Carbon Dioxide 31 H Anion Gap 2 L BUN 23 H Creatinine 0.60 L Estim Creat Clear Calc 83 Estimated GFR > 60 Glucose 90 Calcium 8.7 Magnesium 2.1 Total Bilirubin 0.7 AST 45 H ALT
[2022-12-08 13:52] LABS: Anti Striated Muscle Antibody POSITIVE (NEGATIVE)
[2022-12-14 18:42] LABS: Acetylchol Receptor Binding Ab 55.41 nmol/L
== END 2022-12-05 16:48 | disposition home health service (06) | DRG 56 ==
LOC: ANHED 11-23 03:06 → ANHCPC 11-23 11:28 → ANHICU 11-25 08:18 → ANH2MED 12-02 21:30
PROVIDERS: Internal Medicine; Nurse Practitioner Family; Student in an Organized Health Care Education/Training Program; Admitting Provider Internal Medicine; Emergency Provider Emergency Medicine; PCP Family Medicine Sports Medicine; Visit Provider Internal Medicine
DX: G70.01 Myasthenia gravis with (acute) exacerbation (principal); J96.02 Acute respiratory failure with hypercapnia; N39.0 Urinary tract infection, site not specified; J45.901 Unspecified asthma with (acute) exacerbation; R13.10 Dysphagia, unspecified; G51.0 Bell's palsy; R50.9 Fever, unspecified; E66.9 Obesity, unspecified; H02.402 Unspecified ptosis of left eyelid; Z20.822 Contact with and (suspected) exposure to COVID-19; Z68.28 Body mass index [BMI] 28.0-28.9, adult; Z88.0 Allergy status to penicillin; Z88.5 Allergy status to narcotic agent; Z79.52 Long term (current) use of systemic steroids; Z79.890 Hormone replacement therapy
CPT/HCPCS: 36415; 36569; 36600; 70491; 71045; 71046; 71275; 74018; 76705; 80048; 80053; 80074; 81001; 82375; 82784; 82805; 82948; 83050; 83519; 83605; 83735; 83880; 84100; 84238; 84478; 84484; 85025; 86255; 86256; 87040; 87086; 87088; 87636; 92526; 92611; 93005; 94002; 94003; 94640; 96361; 96365; 96366; 96368; 96372; 96374; 96375; 96376; 97110; 97116; 97161; 97165; 97530; 97535; 99285; A9270; C1751; C9113; G0378; J0131; J0330; J0612; J0696; J1459; J1650; J1815; J1956; J2060; J2250; J2704; J2930; J2997; J3010; J3480; J7030; J7040; J7120; J7512; Q9967

== ENCOUNTER 2023-01-06 04:55 | Emergency (ER) | payer OTHER, SELFPAY ==
--- NOTE | ~2023-01-06 | XR_ITS ---
Clinical Indication: Cough PA and lateral views of the chest: Comparison: 12/02/2022 Findings: Suggestion of minimal bilateral pleural effusions and/or bibasilar atelectatic change. Lung s are otherwise clear. Cardiomediastinal silhouette is within normal limits. Bones and soft tissues are unremarkable. Impression: Probable minimal bilateral pleural effusions or minimal bibasilar atelectatic change. Reviewed, dictated and finalized at location . Impression: Probable minimal bilateral pleural effusions or minimal bibasilar atelectatic c bin.
[2023-01-06 04:59] VITALS: BP 156/81; PULSE 104; RESP 20; TEMP 36.2; O2SAT 95
--- NOTE | 2023-01-06 05:22 | ED.GENADULT ---
HPI - General Adult General Chief complaint: Unspecified Stated complaint: sob Time Seen by Provider: 01/06/23 05:03 History of Present Illness HPI narrative: This is a 57-year-old female, recently diagnosed with myasthenia gravis and recently admitted, requiring mechanical ventilation for respiratory distress, presents to the emergency department complaining of cough for the past 3 days. She states she has had nasal congestion and postnasal drip cough productive of mucus. She complains of some weakness in the neck. She denies pain but is concerned her symptoms could progress to another episode of myasthenic crisis. Related Data Home Medications Medication Instructions Recorded Confirmed albuterol sulfate 90 mcg/actuation 2 inh inhalation Q6H PRN Shortness 03/28/22 11/23/22 breath activated powder inhaler Of Breath buspirone 5 mg tablet 5 mg PO BID 03/28/22 11/23/22 fluticasone propionate 50 2 spray intranasal DAILY 03/28/22 11/23/22 mcg/actuation nasal spray,suspension (Flonase Allergy Relief) montelukast 10 mg tablet 10 mg PO HS 03/28/22 11/23/22 budesonide-formoterol HFA 160 2 puff inhalation BID 11/18/22 11/23/22 mcg-4.5 mcg/actuation aerosol inhaler (Symbicort) Allergies Allergy/AdvReac Type Severity Reaction Status Date / Time penicillin G Allergy Unknown Unknown Verified 01/06/23 05:23 codeine AdvReac Vomiting Verified 01/06/23 05:23 Review of Systems Review of Systems: CONSTITUTIONAL: Denies fever, chills, or sweats. ENT: Rhinorrhea, congestion, denies rhinorrhea, sore throat, or otalgia. CARDIOVASCULAR: Denies chest pain, palpitations, or edema. RESPIRATORY: Cough denies dyspnea. GASTROINTESTINAL: Denies abdominal pain, nausea, vomiting, or diarrhea. GENITOURINARY: Denies dysuria or hematuria. SKIN: Denies rash or itching. MUSCULOSKELETAL: Denies back pain, joint pain, or myalgia. NEUROLOGIC: Denies headache, numbness, dizziness, or weakness. PSYCHIATRIC: Denies anxiety or depression. [facility] Past Medical History Medical History (Updated 01/06/23 @ 07:24 by Isaias Hubbard MD) Asthma Membreno's palsy Kidney stones Myasthenia gravis Surgical History Surgical History History of ear surgery History of mandibular surgery History of throat surgery Family History Family History Father Asthma Diabetes mellitus Hypertension Heart disease Mother Diabetes mellitus Hypertension Social History Social History Smoking status: Never smoker Alcohol intake: never Substance use: never Substance use type: does not use Lack of Transportation: No Lack of Food: Never True Current Housing: I Have Housing Concerned About Future Housing: No Difficulty Paying Gas/Electric Bills: No Difficulty Paying for Meds: No Currently Unemployed: No Education: Bachelor's Degree Difficulty w/ Childcare or Family Care: No Living arrangements: with family Spiritual care concerns: No Exam Narrative: GENERAL: Well-developed, well-nourished, and in no acute distress. HEAD: Normocephalic, atraumatic. EYES: PERRLA and EOMI. ENT: Nares clear, no rhinorrhea or epistaxis. Mucous membranes moist. Mild pharyngeal erythema is noted. There is no noted tonsillar hypertrophy, exudate or other lesions. Bilateral TMs pearly noble nonbulging CHEST: Mild rhonchi noted in the bilateral, lower lung cui with good aeration. No respiratory distress. No wheezes or rales. HEART: Regular rate and rhythm. No murmur heard. Normal peripheral pulses. ABDOMEN: Soft, nontender, nondistended, normal active bowel sounds. EXTREMITIES: Normal range of motion. No edema. SKIN: Warm, dry, no rash. NEURO: No focal deficits. Alert and oriented x3. Cranial nerves II through XII intact. No noted ptosis. Strength 5/5 in all extremitie
[2023-01-06 05:30] VITALS: BP 146/88; PULSE 108; RESP 16; O2SAT 97
[2023-01-06 06:09] VITALS: BP 144/90; PULSE 84; RESP 16; O2SAT 100
[2023-01-06 06:09] LABS: Influenza A QL RT-PCR Negative (Negative); Influenza B QL RT-PCR Negative (Negative); SARS-CoV-2 RNA PCR Negative (Negative)
[2023-01-06 07:15] LABS: Fractional Inspired Oxygen 21 %; HCO3 VBG 30.4 mEq/l (24.0-30.0); PCO2 VBG 47.9 mmHg (42.0-48.0); PO2 VBG 31.8 mmHg (35.0-45.0)
[2023-01-06 07:30] VITALS: PULSE 102; RESP 18
[2023-01-06] MEDS: LEVALBUTEROL NEB 1.25 MG/3 ML 0.63 MG INHALATION (07:30)
[2023-01-06 07:40] VITALS: PULSE 106; RESP 18
[2023-01-06 07:55] VITALS: BP 147/85; PULSE 101; RESP 21; O2SAT 100
== END 2023-01-06 07:55 | disposition home or self-care (01) ==
PROVIDERS: Emergency Provider Preventive Medicine Aerospace Medicine; PCP Family Medicine Sports Medicine
DX: J06.9 Acute upper respiratory infection, unspecified (principal); Z20.822 Contact with and (suspected) exposure to COVID-19; G70.00 Myasthenia gravis without (acute) exacerbation; J45.909 Unspecified asthma, uncomplicated; Z87.442 Personal history of urinary calculi
CPT/HCPCS: 36415; 71046; 82803; 87636; 94640; 99283

== ENCOUNTER 2023-01-07 09:08 | Outpatient (CLI) | payer OTHER, SELFPAY ==
--- NOTE | ~2023-01-07 | CT_ITS ---
EXAMINATION: CT soft tissue neck chest wo/w DATE: 01/07/2023 09:55 INDICATION: Thymoma in setting of myasthenia gravis. TECHNIQUE: Computed tomography (CT) of the neck and chest was performed without and with 75 mL Omnipa que-350 intravenous contrast. Automated exposure control and iterative reconstruction technique were employed. The dose-length product was 1659.41 mGy-cm. COMPARISON: CT neck 11/23/2022 FINDINGS: CT NECK: There is mucosal thickening in the paranasal sinuses, worst in left maxillary sinus. The mas toid air cells are normal. There are no pathologically enlarged lymph nodes. There is 0% stenosis in the proximal internal carotid arteries relative to normal distal artery lumen diameter. There is laquita re cervical spondylosis. CT CHEST: A calcified right lung nodule is consistent with old granulomatous disease. There is mucous plugging in the lower lobes. There are centrilobular nodules in the lower lobes, consistent with pne umonia. No pleural effusion. There is an aberrant right subclavian artery. The heart size is normal. No pericardial effusion. There is no anterior mediastinal mass to suggest a thymoma. There is no thym ic hyperplasia. There is mild thoracic spondylosis. There is mild chronic anterior wedging of 2 midth oracic vertebral bodies. IMPRESSION: 1. No thymoma or thymic hyperplasia. 2. Mild pneumonia in the lower lobes. Reviewed, dictated and finalized at location A.
== END 2023-01-07 09:09 | disposition home or self-care (01) ==
PROVIDERS: PCP Family Medicine Sports Medicine; Visit Provider Student in an Organized Health Care Education/Training Program
DX: G70.01 Myasthenia gravis with (acute) exacerbation (principal); J18.9 Pneumonia, unspecified organism
CPT/HCPCS: 70492; 71270; Q9967

== ENCOUNTER 2023-06-13 15:52 | Outpatient (CLI) | payer OTHER, SELFPAY ==
--- NOTE | ~2023-06-13 | MM_ITS ---
EXAMINATION: MM screening carmen BI w radha HISTORY: Screening mammogram TECHNIQUE: Craniocaudal and mediolateral oblique 3-D tomosynthesis images were obtained and synthetic 2-D images were generated. CAD analysis was submitted and interpreted. COMPARISON: 03/02/2022 BREAST PARENCHYMAL COMPOSITION: There are scattered areas of fibroglandular density. FINDINGS: No suspicious mass, calcification, or architectural distortion are identified in either derek ast to suggest malignancy. There has been no suspicious interval change. IMPRESSION: 1. No mammographic evidence of malignancy. 2. Recommend routine screening mammography in one year. BI-RADS Category 1: Negative Reviewed, dictated and finalized at location A.
== END 2023-06-13 15:53 | disposition home or self-care (01) ==
PROVIDERS: PCP Family Medicine Sports Medicine; Visit Provider Physician Assistant
DX: Z12.31 Encounter for screening mammogram for malignant neoplasm of breast (principal)
CPT/HCPCS: 77063; 77067

== ENCOUNTER 2023-09-09 16:56 | Observation (INO) | payer OTHER, SELFPAY ==
--- NOTE | ~2023-09-09 | XR_ITS ---
Portable chest x-ray Comparison: 09/09/2023 Clinical History: Shortness of breath Findings: There is bibasilar pulmonary edema/atelectasis, less likely pneumonia. Cardiomediastinal silhouette is stable. Bones and soft tissues are unremarkable. Impression: Probable bibasilar pulmonary edema/atelectasis, less likely pneumonia. Correlate clinically. Reviewed, dictated and finalized at [facility]. LIATE MANAGER Impression: Probable bibasilar pulmonary edema/atelectasis, less likely pneumonia. Correlat e clinically.
--- NOTE | ~2023-09-09 | CT_ITS ---
EXAMINATION: CT diagnostic chest wo con DATE: 09/09/2023 18:44 INDICATION: RSV(+), rule out superimposed PNA TECHNIQUE: Computed tomography (CT) of the chest was performed without intravenous contrast. Automate d exposure control and iterative reconstruction technique were employed. The dose-length product was 200.11 mGy-cm. COMPARISON: CT soft tissue neck chest 01/07/2023; x-ray chest 09/09/2023. FINDINGS: CHEST: Thoracic aorta: No significant dilation or calcification. Lung parenchyma and airways: Motion artifact in the lung bases. Patchy subsegmental consolidation in the left lower lobe surrounding a region of linear scar. Patchy subsegmental opacities in the medial lingula. Scattered centrilobular nodular opacities in the right lung base. The airways are clear. Thoracic inlet, axillae and chest wall: No thyroid or soft tissue mass. No axillary lymphadenopathy. Mediastinum: No mass or lymphadenopathy. Heart and pericardium: Normal heart size. Small volume pericardial fluid. Coronary artery calcifications: Absent. Pleura: No effusion or mass. Upper abdomen: No significant finding. Thoracic bones: No acute osseous finding in the chest. IMPRESSION: Bilateral lower lung opacities may represent atelectasis or infection. Aspiration should also be cons idered in the differential. Trace pericardial effusion. Reviewed, dictated and finalized at location [facility]. CAL STAFF COORDINATOR IMPRESSION: Bilateral lower lung opacities may represent atelectasis or infection. Aspirati on should also be considered in the differential. Trace pericardial effusion.
--- NOTE | ~2023-09-09 | XR_ITS ---
EXAMINATION: XR chest 1V portable Exam Date/Time: 09/09/2023 18:27 TURNER MACHINE HISTORY: cough, SOB, ASTHMA, MYASTHENIA GRAVIS Comparison: 12/29/2022. RESULT: Lines, tubes, and devices: None. Lungs and pleura: Patchy opacities in the left lower lung. Cardiomediastinal silhouette: Stable. Other: No acute osseous or upper abdominal finding. IMPRESSION: Patchy opacities in the left lower lung may represent atelectasis, or infection. Aspiration could als o be considered depending on the clinical context. Reviewed, dictated and finalized at location [facility]. ER MACHINE IMPRESSION: Patchy opacities in the left lower lung may represent atelectasis, or infection . Aspiration could also be considered depending on the clinical context.
[2023-09-09 17:10] VITALS: BP 152/90; PULSE 156; RESP 20; TEMP 37.4; O2SAT 95
[2023-09-09 17:54] LABS: Influenza A QL RT-PCR Negative (Negative); Influenza B QL RT-PCR Negative (Negative); RSV RNA, RT-PCR Positive (Negative); SARS-CoV-2 RNA PCR Negative (Negative)
--- NOTE | 2023-09-09 18:24 | ECG_ITS ---
Measurements Intervals [place] Rate: 161 P: 30 KS: 97 QRS: 7 QRSD: 81 T: 37 QT: 284 QTc: 466 Interpretive Statements SINUS TACHYCARDIA WITH SHORT [place] INTERVAL LOW QRS VOLTAGE IN PRECORDIAL LEADS [QRS DEFLECTION < 1.0 mV IN CHEST LEADS] NONSPECIFIC ST & T-WAVE ABNORMALITY ABNORMAL RHYTHM ECG COMPARED TO ECG 11/22/2022 23:07:25 SINUS TACHYCARDIA NOW PRESENT Electronically Signed On 09-10-2023 14:48:26 PIPE ASSEMBLY WORKER by Aaron Jimenez M.D.
--- NOTE | 2023-09-09 18:25 | ED.GENADULT ---
HPI - General Adult General Chief complaint: Upper Respiratory Infection <Anup Dexter PA-C - Last Filed: 09/10/23 02:30> Stated complaint: SOB, NASAL CONGESTION <Anup Dexter PA-C - Last Filed: 09/10/23 02:30> Time Seen by Provider: 09/09/23 18:14 <Anup Dexter PA-C - Last Filed: 09/10/23 02:30> Source: patient <JESSIE Brown Last Filed: 09/10/23 02:30> Mode of arrival: ambulatory <JESSIE Brown Last Filed: 09/10/23 02:30> Limitations: no limitations <JESSIE Brown Last Filed: 09/10/23 02:30> History of Present Illness HPI narrative: This is a 57-year-old female with PMH of MG, anxiety who presents to the ED with chief complaint of URI symptoms for the past 5-6 days. Reports that she has had increasing cough and congestion, productive cough with yellow sputum. Reports of headache as well. She had sore throat earlier but this has resolved. She has taken Mucinex DM, Sudafed and her inhaler without relief. Endorses fevers, chills. Denies chest pain, shortness of breath, neck pain, abdominal pain, nausea, vomiting, diarrhea, urinary problems. <Anup Dexter PA-C - Last Filed: 09/10/23 02:30> Related Data Home medications: Home Medications Medication Instructions Recorded Confirmed albuterol sulfate 90 mcg/actuation 2 inh inhalation Q6H PRN Shortness 03/28/22 09/09/23 breath activated powder inhaler Of Breath buspirone 5 mg tablet 5 mg PO BID 03/28/22 09/09/23 fluticasone propionate 50 2 spray intranasal DAILY 03/28/22 09/09/23 mcg/actuation nasal spray,suspension (Flonase Allergy Relief) budesonide-formoterol HFA 160 2 puff inhalation BID 11/18/22 09/09/23 mcg-4.5 mcg/actuation aerosol inhaler (Symbicort) mycophenolate mofetil 500 mg 1,000 mg PO BID 09/09/23 09/09/23 tablet (CellCept) prednisone 20 mg tablet 20 mg PO DAILY 09/09/23 09/09/23 <Anup Dexter PA-C - Last Filed: 09/10/23 02:30> Allergies/adverse reactions: Allergies Allergy/AdvReac Type Severity Reaction Status Date / Time penicillin G Allergy Unknown Unknown Verified 09/09/23 17:14 codeine AdvReac Vomiting Verified 09/09/23 17:14 <Anup Dexter PA-C - Last Filed: 09/10/23 02:30> Review of Systems Review of Systems: All systems as dictated in HPI <Anup Dexter PA-C - Last Filed: 09/10/23 02:30> [facility] Past Medical History Medical History: Medical History Asthma Membreno's palsy Kidney stones Myasthenia gravis <Anup Dexter PA-C - Last Filed: 09/10/23 02:30> Surgical History Surgical History: Surgical History History of ear surgery History of mandibular surgery History of throat surgery <Anup Dexter PA-C - Last Filed: 09/10/23 02:30> Family History Family History: Family History Father Asthma Diabetes mellitus Hypertension Heart disease Mother Diabetes mellitus Hypertension <Anup Dexter PA-C - Last Filed: 09/10/23 02:30> Social History Social History: Social History (Updated 08/23/23 @ 12:28 by Kayla Austin MA) Smoking packs per day: 0 Smoking cigarettes per day: 0.0 Years smoked: 0 Smoking pack-years: 0.00 Smoking status: Never smoker Second hand tobacco smoke exposure: No Alcohol intake: never Substance use: never Substance use type: does not use Do You Feel Safe in your Home?: Yes Lack of Transportation: No Lack of Food: Never True Current Housing: I Have Housing Concerned About Future Housing: No Difficulty Paying Gas/Electric Bills: No Difficulty Paying for Meds: No Currently Unemployed: No Education: Bachelor's Degree Difficulty w/ Childcare or Family Care: No Living arrangements: with family Gender identity (if verbalized by the patient): Female Spiritual care concerns
[2023-09-09] MEDS: SODIUM CHLORIDE 0.9% IV 1,000 ML 999 ML IV CONT ×2 (18:36→20:15)
[2023-09-09 18:45] LABS: Basophils Absolute Auto 0.1 K/mm3 (0.0-0.1); Basophils Percent Auto 0.3 % (0.2-1.2); Eosinophils Percent Auto 0.1 % (0-4.4); Hematocrit 48.9 % (37.0-47.0); Hemoglobin 15.2 g/dL (12.0-15.0); Immature Granulocyte Absolute 0.12 K/mm3 (0.00-0.031); Immature Granulocyte Percent A 0.7 % (0-0.5); Lymphocytes Absolute Auto 0.76 K/mm3 (0.9-3.2); Lymphocytes Percent Auto 4.4 % (18.3-44.2); Mean Corpuscular HGB Conc 31.1 g/dl (32-36); Mean Corpuscular Hemoglobin 28.6 pg (26-34); Mean Corpuscular Volume 92.1 fl (80-100); Mean Platelet Volume 9.3 fl (7.4-10.4); Monocytes Absolute Auto 1.1 K/mm3 (0.1-0.6); Monocytes Percent Auto 6.1 % (2.6-8.5); Neutrophils Absolute Auto 15.3 K/mm3 (1.3-6.7); Neutrophils Percent Auto 88.4 % (45.5-73.1); Platelet Count Result 348 k/mm3 (150-375); Red Blood Count 5.31 M/mm3 (4.2-5.4); Red Cell Distribution Width 14.3 % (11.5-14.5); White Blood Count 17.3 K/mm3 (4.5-10.0)
[2023-09-09 18:59] LABS: Alanine Aminotransferase 54 U/L (6-35); Albumin Level 4.5 g/dL (3.5-5.1); Alkaline Phosphatase 81 U/L (38-126); Anion Gap 6 mmol/L (8-16); Aspartate Amino Transferase 45 U/L (14-36); Bilirubin,Total 1.6 mg/dL (0.2-1.3); Blood Urea Nitrogen 10 mg/dL (7-17); Calcium 9.6 mg/dL (8.4-10.2); Carbon Dioxide 30 mmol/L (22-30); Chloride 102 mmol/L (98-107); Estimated CRCL calculation 78 ml/min; Estimated Glomerular Filt Rate > 60; Glucose 155 mg/dL (65-110); Potassium 3.1 mmol/L (3.4-5.0); Sodium 138 mmol/L (137-145)
[2023-09-09 19:14] LABS: Procalcitonin 0.4 ng/mL
[2023-09-09] MEDS: ALBUTEROL SULFATE NEB 2.5 MG/3 ML INH 10 MG INHALATION (19:57)
[2023-09-09] MEDS: IPRATROPIUM BR 0.02% INH SOLN 0.5 MG/2.5 ML VIAL 2 MG INHALATION (19:58)
[2023-09-09 19:59] VITALS: PULSE 88; RESP 20
[2023-09-09 20:14] LABS: Appearance Urine Clear (Clear); Bacteria Urine 4+ /hpf; Bilirubin Urine Negative (Negative); Blood Urine 2+ (Negative); Color Urine Yellow (Yellow); Glucose Urine UA Negative (Negative); Ketones Urine 1+ mg/dL (Negative); Leukocyte Esterase Ur Negative LEU/UL (Negative); Nitrate Urine Positive (Negative); Non Pathogenic Casts 0-2; Protein Urine 1+ mg/dL (Negative); Specific Grav Ur 1.019 (1.001-1.035); Squamous Epithelial Cell Urine Occasional /hpf (Few); WBC Urine 0-5 /hpf; pH Urine 6.5 (5.0-9.0)
[2023-09-09 20:20] LABS: Add Urine Microscopic? YES
[2023-09-09] MEDS: metroNIDAZOLE 500 MG/ISO 100ML 500 MG/100 ML BAG 100 MG IVPB (20:49)
[2023-09-09] MEDS: VANCOMYCIN 2,000 MG/NS 500 ML 2,000 MG/500 ML BAG 250 MG IVPB (20:49)
[2023-09-09 20:53] VITALS: BP 158/90; PULSE 150; RESP 18; O2SAT 97
--- NOTE | 2023-09-09 21:14 | PM.IMHP ---
H&P: HPI History of Present Illness Date/Time: 09/09/23 21:14 Chief Complaint: URI symptoms Narrative: 57F w/ PMH myasthenia gravis, anxiety, asthma presents with 4-5 days of URI symptoms. She complains of cough productive of yellow sputum and shortness of breath. She feels better in the ER now that she has had breathing treatment. She denies chest pain or worsening of her MG symptoms such as weakness, double vision, trouble speaking or swallowing. Her symptoms have been controlled and she is adherent to her medications. She is currently on a tapering does of prednisone. Dx and required intubation. Followed by Dr. Rolanda Durbin neurology. ER course revealed positive RSV PCR and sinus tachycardia, possible aspiration pneumonia, hypokalemia. Review of Systems Review of Systems: All systems reviewed & are unremarkable except as noted in HPI and below (HPI) [facility] Past Medical History Medical History Asthma Membreno's palsy Kidney stones Myasthenia gravis Surgical History Surgical History History of ear surgery History of mandibular surgery History of throat surgery Family History Family History Father Asthma Diabetes mellitus Hypertension Heart disease Mother Diabetes mellitus Hypertension Social History Social History (Updated 08/23/23 @ 12:28 by Kayla Austin MA) Smoking packs per day: 0 Smoking cigarettes per day: 0.0 Years smoked: 0 Smoking pack-years: 0.00 Smoking status: Never smoker Second hand tobacco smoke exposure: No Alcohol intake: never Substance use: never Substance use type: does not use Lack of Transportation: No Lack of Food: Never True Current Housing: I Have Housing Concerned About Future Housing: No Difficulty Paying Gas/Electric Bills: No Difficulty Paying for Meds: No Currently Unemployed: No Education: Bachelor's Degree Difficulty w/ Childcare or Family Care: No Living arrangements: with family Gender identity (if verbalized by the patient): Female Spiritual care concerns: No Meds Home Medications and Allergies Home Medications Medication Instructions Recorded Confirmed Type albuterol sulfate 90 mcg/actuation 2 inh inhalation Q6H PRN Shortness 03/28/22 08/23/23 History breath activated powder inhaler Of Breath buspirone 5 mg tablet 5 mg PO BID 03/28/22 08/23/23 History fluticasone propionate 50 2 spray intranasal DAILY 03/28/22 08/23/23 History mcg/actuation nasal spray,suspension (Flonase Allergy Relief) budesonide-formoterol HFA 160 2 puff inhalation BID 11/18/22 08/23/23 History mcg-4.5 mcg/actuation aerosol inhaler (Symbicort) mycophenolate mofetil 500 mg tablet See Rx Instructions .Route 05/10/23 08/23/23 Rx .COMPLEX #120 tabs prednisone 20 mg tablet See Rx Instructions .Route 08/23/23 08/23/23 Rx .COMPLEX #60 tabs pyridostigmine bromide 60 mg 60 mg PO TID #90 tabs 08/28/23 Rx tablet (Mestinon) Allergies Allergy/AdvReac Type Severity Reaction Status Date / Time penicillin G Allergy Unknown Unknown Verified 09/09/23 17:14 codeine AdvReac Vomiting Verified 09/09/23 17:14 Vital Signs Vital Signs - 24 hr 09/09/23 17:10 09/09/23 19:59 09/09/23 20:53 Temperature 99.4 F Pulse Rate 156 H 88 150 H Respiratory Rate 20 20 18 Blood Pressure 152/90 H 158/90 H Pulse Oximetry 95 97 Oxygen Delivery Room Air Exam Const: General: comfortable and no acute distress Eyes: Pupils: Equal, round and reactive pupils present Other: ptosis Neck: Neck: supple Resp: Effort & Inspection: normal respiratory effort Auscultation: clear to auscultation bilaterally, no crackles, no rales and no rhonchi Cardio: Rate: tachycardic Rhythm: regular rhythm Heart sounds: no gallops, no murmurs and no rubs GI: Inspe
--- NOTE | 2023-09-09 21:39 | PC.NURSE ---
While patient is taking oral medication for potassium supplement, patient states she is unable to get the pill down due to its size. Patient gagging and spits pill up into the water. Hospitalist notified.
[2023-09-09 21:40] VITALS: BP 149/73; PULSE 154; RESP 22; TEMP 36.8; O2SAT 97; BMI 32.0
--- NOTE | 2023-09-09 21:41 | ADMGEN ---
2139 This patient, Urvashi Donovan, was admitted to IMU Room 210-01. Patient/family oriented to hospital policies and general routines including ID bracelet, bed and alarms, visiting hours, pain management, procedures, bathroom and other care routines, personal items, smoking policy, room service/diet, and visiting hours. Information on how to activate the Rapid Response Team has been discussed. Patient/Family are encouraged to report perceived risks to care and to ask questions if they do not understand what they are told or what they should do.
[2023-09-09 21:49] LABS: MRSA (PCR) NOT DETECTED (NOT DETECTE)
[2023-09-09 22:00] VITALS: PULSE 150
[2023-09-09 22:03] VITALS: BMI 32.0
[2023-09-09] MEDS: mycophenolate mofetiL 250 MG CAPSULE 1000 MG BY MOUTH (22:20)
[2023-09-09] MEDS: busPIRone HCL 5 MG TABLET PO (22:20)
[2023-09-09] MEDS: POTASSIUM CHLORIDE 20 MEQ PACKET (FOR LIQUID) 40 MEQ PO (22:22)
[2023-09-09] MEDS: SODIUM CHLORIDE 0.9% IV 1,000 ML 125 ML IV CONT (22:23)
[2023-09-09] MEDS: pyRIDostigmine bromide 60 MG TABLET PO (22:23)
[2023-09-09 23:05] VITALS: PULSE 152
[2023-09-09] MEDS: ONDANSETRON INJ 4 MG/2 ML VIAL IV PUSH (23:05)
[2023-09-09] MEDS: METOPROLOL TARTRATE INJ 5 MG/5 ML VIAL IV PUSH (23:05)
[2023-09-10] VITALS (18 sets, daily range): BP systolic 121–153; BP diastolic 70–91; PULSE 108–132; RESP 16–22; TEMP 36.1–37.1; O2SAT 96–100
[2023-09-10] MEDS: IPRATROPIUM BR 0.02% INH SOLN 0.5 MG/2.5 ML VIAL INHALATION ×4 (02:29→20:50)
[2023-09-10] MEDS: LEVALBUTEROL NEB 1.25 MG/3 ML INHALATION ×4 (02:29→20:50)
[2023-09-10] MEDS: metroNIDAZOLE 500 MG/ISO 100ML 500 MG/100 ML BAG 100 MG IVPB ×3 (04:43→17:06)
[2023-09-10] MEDS: pyRIDostigmine bromide 60 MG TABLET PO ×3 (04:44→22:44)
[2023-09-10 04:55] LABS: Basophils Absolute Auto 0.1 K/mm3 (0.0-0.1); Basophils Percent Auto 0.5 % (0.2-1.2); Eosinophils Percent Auto 0.2 % (0-4.4); Hematocrit 43.2 % (37.0-47.0); Hemoglobin 13.7 g/dL (12.0-15.0); Immature Granulocyte Absolute 0.14 K/mm3 (0.00-0.031); Immature Granulocyte Percent A 0.8 % (0-0.5); Lymphocytes Absolute Auto 1.18 K/mm3 (0.9-3.2); Lymphocytes Percent Auto 6.5 % (18.3-44.2); Mean Corpuscular HGB Conc 31.7 g/dl (32-36); Mean Corpuscular Hemoglobin 29.2 pg (26-34); Mean Corpuscular Volume 92.1 fl (80-100); Mean Platelet Volume 9.7 fl (7.4-10.4); Monocytes Absolute Auto 1.6 K/mm3 (0.1-0.6); Monocytes Percent Auto 8.8 % (2.6-8.5); Neutrophils Percent Auto 83.2 % (45.5-73.1); Platelet Count Result 282 k/mm3 (150-375); Red Blood Count 4.69 M/mm3 (4.2-5.4); Red Cell Distribution Width 14.3 % (11.5-14.5)
[2023-09-10 05:09] LABS: Alanine Aminotransferase 42 U/L (6-35); Albumin Level 3.7 g/dL (3.5-5.1); Alkaline Phosphatase 66 U/L (38-126); Anion Gap 7 mmol/L (8-16); Aspartate Amino Transferase 26 U/L (14-36); Bilirubin,Total 1.8 mg/dL (0.2-1.3); Blood Urea Nitrogen 8 mg/dL (7-17); Calcium 8.4 mg/dL (8.4-10.2); Carbon Dioxide 22 mmol/L (22-30); Chloride 110 mmol/L (98-107); Estimated CRCL calculation 91 ml/min; Estimated Glomerular Filt Rate > 60; Glucose 143 mg/dL (65-110); Magnesium 1.9 mg/dL (1.6-2.3); Potassium 3.6 mmol/L (3.4-5.0); Sodium 139 mmol/L (137-145)
[2023-09-10] MEDS: ACETAMINOPHEN 325 MG TABLET 650 MG PO ×2 (05:48→20:51)
[2023-09-10] MEDS: predniSONE 20 MG TABLET PO (09:26)
[2023-09-10] MEDS: VANCOMYCIN 1,500 MG/NS 500 ML 1,500 MG/500 ML BAG 250 MG IVPB ×2 (09:26→22:43)
[2023-09-10] MEDS: ENOXAPARIN 40 MG/0.4 ML SYRINGE SUB-Q (09:26)
[2023-09-10] MEDS: busPIRone HCL 5 MG TABLET PO ×2 (09:26→17:06)
--- NOTE | 2023-09-10 09:28 | PM.IMPN ---
Progress Note: A&P Assessment and Plan (1) Generalized myasthenia gravis: Code(s): G70.00 - Myasthenia gravis without (acute) exacerbation Status: Acute Assessment and Plan: For her myasthenia gravis she is high risk but does not appear to be in crisis, continue prednisone 20mg qday, cellcept at 1000mg po BID and mestinon at 60mg TID. (2) Asthma: Qualifiers: Asthma complication type: unspecified Asthma persistence: unspecified Asthma severity: unspecified severity Qualified Code(s): J45.909 - Unspecified asthma, uncomplicated Code(s): J45.909 - Unspecified asthma, uncomplicated Status: Acute Assessment and Plan: She is currently on a tapering does of prednisone. Dx 11/2022 and required intubation. Followed by Dr. Rolanda Durbin neurology. (3) RSV (respiratory syncytial virus infection): Code(s): B33.8 - Other specified viral diseases Status: Acute Assessment and Plan: RSV positive 09/09 Supportive care (4) Community acquired pneumonia: Code(s): J18.9 - Pneumonia, unspecified organism Status: Acute Assessment and Plan: For her CAP bacterial and/or aspiration pneumonia, ceftriaxone, vancomycin and flagyl have been started with MRSA nares PCR and sputum cx pending. Improving, anticipate d/c in am (5) Hypokalemia: Code(s): E87.6 - Hypokalemia Status: Acute Assessment and Plan: resolved, continue to monitor Plan DVT prophylaxis with lovenox GI prophylaxis not indicated Code status full code Subjective Date/time seen: 09/10/23 09:28 Interval history: 57F w/ PMH myasthenia gravis, anxiety, asthma presents with 4-5 days of URI symptoms and is currently being treated for RSV. No overnight events noted. No chest pain. No nausea, vomiting or diarrhea. No fevers or chills. SOB improved, still feels quite weak. Review of Systems Review of Systems: 12 point review of systems was assessed and was negative except as noted in the HPI Exam Narrative: General: No acute distress, alert and oriented per baseline HEENT: Atraumatic, normocephalic, mucous membranes moist CV: Regular rate and rhythm, S1, S2 Lungs: Coarse BS, scattered crackles, diminished at bases Abdomen: Soft, nontender, nondistended Extremities: Normal to inspection Skin: No rashes noted, no lesions or wounds seen Psych: Euthymic, normal affect Objective Data Vital Signs Vital Signs: Vital Signs - 24 hr 09/09/23 17:10 09/09/23 19:59 09/09/23 20:53 Temperature 99.4 F Pulse Rate 156 H 88 150 H Respiratory Rate 20 20 18 Blood Pressure 152/90 H 158/90 H Pulse Oximetry 95 97 Oxygen Delivery Room Air Oxygen Flow Rate 09/09/23 21:40 09/09/23 22:00 09/09/23 23:05 Temperature 98.3 F Pulse Rate 154 H 150 H 152 H Respiratory Rate 22 H Blood Pressure 149/73 H Pulse Oximetry 97 Oxygen Delivery Oxygen Flow Rate 09/10/23 00:00 09/10/23 00:00 09/10/23 02:32 Temperature 98.8 F Pulse Rate 131 H 130 H 132 H Respiratory Rate 22 H 20 Blood Pressure 121/70 Pulse Oximetry 100 Oxygen Delivery Oxygen Flow Rate 09/10/23 02:37 09/10/23 02:00 09/10/23 04:00 Temperature Pulse Rate 118 H 128 H Respiratory Rate Blood Pressure Pulse Oximetry 97 Oxygen Delivery Nasal Cannula Oxygen Flow Rate 2 09/10/23 04:00 09/10/23 04:07 09/10/23 04:00 Temperature 97.0 F L Pulse Rate 115 H 130 H Respiratory Rate 18 Blood Pressure 146/91 H Pulse Oximetry 99 99 Oxygen Delivery Nasal Cannula Oxygen Flow Rate 2 09/10/23 05:57 09/10/23 08:00 09/10/23 07:45 Temperature 98.1 F Pulse Rate 119 H 130 H 111 H Respiratory Rate 16 18 Blood Pressure 128/78 Pulse Oximetry 96 99 Oxygen Delivery Nasal Cannula Oxygen Flow Rate 2 09/10/23 07:45 09/10/23 07:55 Temperature Pulse Rate 111 H 114 H Respiratory Rate 18 20 Blood Pressure
[2023-09-10] MEDS: mycophenolate mofetiL 250 MG CAPSULE 1000 MG BY MOUTH (10:08)
[2023-09-10 10:54] LABS: CRP 17.4 mg/dL (<1.0)
[2023-09-10 11:00] LABS: Procalcitonin 0.6 ng/mL
[2023-09-10] MEDS: FLUTICASONE/SALMETEROL 115-21 MCG INHALER 1 PUFF 2 PUFF INHALATION ×2 (13:35→20:50)
[2023-09-10] MEDS: SODIUM CHLORIDE 0.9% IV 1,000 ML 125 ML IV CONT (17:06)
--- NOTE | 2023-09-10 17:25 | PC.NURSE ---
This patient, Urvashi Donovan, was transferred to [facility] on 09/10/23 at 1725. Personal belongings sent with patient. Report given to Kamilla DEJESUS. Appropriate documentation sent with patient.
[2023-09-10 20:33] LABS: Vancomycin Trough 9.9 ug/mL (10.0-20.0)
[2023-09-10] MEDS: mycophenolate mofetiL 250 MG CAPSULE 1000 MG PO (20:51)
[2023-09-11] VITALS (16 sets, daily range): BP systolic 123–155; BP diastolic 83–90; PULSE 99–125; RESP 18–20; TEMP 36.1–37.3; O2SAT 95–100
[2023-09-11] MEDS: SODIUM CHLORIDE 0.9% IV 1,000 ML 125 ML IV CONT ×3 (01:10→21:49)
[2023-09-11] MEDS: metroNIDAZOLE 500 MG/ISO 100ML 500 MG/100 ML BAG 100 MG IVPB ×3 (02:37→15:17)
[2023-09-11] MEDS: LEVALBUTEROL NEB 1.25 MG/3 ML INHALATION ×4 (02:45→20:56)
[2023-09-11] MEDS: IPRATROPIUM BR 0.02% INH SOLN 0.5 MG/2.5 ML VIAL INHALATION ×4 (02:45→20:56)
--- NOTE | 2023-09-11 02:53 | PC.NURSE ---
Called pharmacy to ask if next Flagyl dose can be retimed. Pt previously receiving vancomycin but had trouble keeping arm in a still position multiple times causing infusion to stop. Pharmacy said they would retime next dose.
[2023-09-11 05:53] LABS: Basophils Absolute Auto 0.1 K/mm3 (0.0-0.1); Basophils Percent Auto 0.8 % (0.2-1.2); Eosinophils Absolute Auto 0.2 K/mm3 (0-0.3); Eosinophils Percent Auto 2.1 % (0-4.4); Hematocrit 44.7 % (37.0-47.0); Hemoglobin 13.6 g/dL (12.0-15.0); Immature Granulocyte Absolute 0.15 K/mm3 (0.00-0.031); Immature Granulocyte Percent A 1.6 % (0-0.5); Lymphocytes Absolute Auto 0.99 K/mm3 (0.9-3.2); Lymphocytes Percent Auto 10.9 % (18.3-44.2); Mean Corpuscular HGB Conc 30.4 g/dl (32-36); Mean Corpuscular Hemoglobin 28.4 pg (26-34); Mean Corpuscular Volume 93.3 fl (80-100); Mean Platelet Volume 9.4 fl (7.4-10.4); Monocytes Percent Auto 10.5 % (2.6-8.5); Neutrophils Absolute Auto 6.8 K/mm3 (1.3-6.7); Neutrophils Percent Auto 74.1 % (45.5-73.1); Platelet Count Result 325 k/mm3 (150-375); Red Blood Count 4.79 M/mm3 (4.2-5.4); Red Cell Distribution Width 14.4 % (11.5-14.5); White Blood Count 9.1 K/mm3 (4.5-10.0)
[2023-09-11 06:03] LABS: Alanine Aminotransferase 41 U/L (6-35); Albumin Level 3.7 g/dL (3.5-5.1); Alkaline Phosphatase 72 U/L (38-126); Anion Gap 5 mmol/L (8-16); Aspartate Amino Transferase 26 U/L (14-36); Bilirubin,Total 0.5 mg/dL (0.2-1.3); Blood Urea Nitrogen 8 mg/dL (7-17); Calcium 8.7 mg/dL (8.4-10.2); Carbon Dioxide 24 mmol/L (22-30); Chloride 111 mmol/L (98-107); Estimated CRCL calculation 80 ml/min; Estimated Glomerular Filt Rate > 60; Glucose 127 mg/dL (65-110); Potassium 3.1 mmol/L (3.4-5.0); Sodium 140 mmol/L (137-145)
[2023-09-11] MEDS: VANCOMYCIN 1,500 MG/NS 500 ML 1,500 MG/500 ML BAG 250 MG IVPB ×3 (06:13→21:58)
[2023-09-11] MEDS: pyRIDostigmine bromide 60 MG TABLET PO ×3 (06:14→21:47)
[2023-09-11] MEDS: ENOXAPARIN 40 MG/0.4 ML SYRINGE SUB-Q (09:24)
[2023-09-11] MEDS: FLUTICASONE PROPIONATE 0.05% NA SPR 16 GM BTL (*BKC) 2 SPRAY NASAL (09:25)
[2023-09-11] MEDS: busPIRone HCL 5 MG TABLET PO ×2 (09:25→16:31)
[2023-09-11] MEDS: mycophenolate mofetiL 250 MG CAPSULE 1000 MG PO ×2 (09:25→21:46)
[2023-09-11] MEDS: predniSONE 20 MG TABLET PO (09:25)
[2023-09-11] MEDS: FLUTICASONE/SALMETEROL 115-21 MCG INHALER 1 PUFF 2 PUFF INHALATION ×2 (10:40→20:25)
[2023-09-11 21:18] LABS: Vancomycin Trough 17.3 ug/mL (10.0-20.0)
[2023-09-11] MEDS: CEFDINIR 300 MG CAPSULE PO (21:47)
[2023-09-11] MEDS: metroNIDAZOLE 500 MG TABLET PO (23:53)
[2023-09-12] VITALS (8 sets, daily range): BP systolic 147–150; BP diastolic 76–90; PULSE 91–116; RESP 18–20; TEMP 36.6; O2SAT 96–98
[2023-09-12] MEDS: LEVALBUTEROL NEB 1.25 MG/3 ML INHALATION ×3 (02:22→13:47)
[2023-09-12] MEDS: IPRATROPIUM BR 0.02% INH SOLN 0.5 MG/2.5 ML VIAL INHALATION ×3 (02:22→13:47)
[2023-09-12 06:05] LABS: Basophils Absolute Auto 0.1 K/mm3 (0.0-0.1); Basophils Percent Auto 0.9 % (0.2-1.2); Eosinophils Absolute Auto 0.2 K/mm3 (0-0.3); Hematocrit 40.3 % (37.0-47.0); Hemoglobin 12.4 g/dL (12.0-15.0); Immature Granulocyte Absolute 0.18 K/mm3 (0.00-0.031); Immature Granulocyte Percent A 2.6 % (0-0.5); Lymphocytes Absolute Auto 1.48 K/mm3 (0.9-3.2); Lymphocytes Percent Auto 21.2 % (18.3-44.2); Mean Corpuscular HGB Conc 30.8 g/dl (32-36); Mean Corpuscular Hemoglobin 28.5 pg (26-34); Mean Corpuscular Volume 92.6 fl (80-100); Mean Platelet Volume 9.6 fl (7.4-10.4); Monocytes Percent Auto 14.5 % (2.6-8.5); Neutrophils Percent Auto 57.8 % (45.5-73.1); Platelet Count Result 334 k/mm3 (150-375); Red Blood Count 4.35 M/mm3 (4.2-5.4); Red Cell Distribution Width 14.1 % (11.5-14.5)
[2023-09-12 06:19] LABS: Alanine Aminotransferase 34 U/L (6-35); Albumin Level 3.3 g/dL (3.5-5.1); Alkaline Phosphatase 59 U/L (38-126); Anion Gap 6 mmol/L (8-16); Aspartate Amino Transferase 23 U/L (14-36); Bilirubin,Total 0.4 mg/dL (0.2-1.3); Blood Urea Nitrogen 6 mg/dL (7-17); Calcium 8.4 mg/dL (8.4-10.2); Carbon Dioxide 23 mmol/L (22-30); Chloride 111 mmol/L (98-107); Estimated CRCL calculation 92 ml/min; Estimated Glomerular Filt Rate > 60; Glucose 103 mg/dL (65-110); Potassium 2.8 mmol/L (3.4-5.0); Sodium 140 mmol/L (137-145)
[2023-09-12] MEDS: metroNIDAZOLE 500 MG TABLET PO ×2 (06:35→12:09)
[2023-09-12] MEDS: VANCOMYCIN 1,500 MG/NS 500 ML 1,500 MG/500 ML BAG 250 MG IVPB (06:35)
[2023-09-12] MEDS: pyRIDostigmine bromide 60 MG TABLET PO ×2 (06:35→13:09)
[2023-09-12] MEDS: POTASSIUM CHLORIDE INJ 40 MEQ in SODIUM CHLORIDE 0.9% IV 500 ML 130 MEQ IVPB (07:03)
[2023-09-12] MEDS: mycophenolate mofetiL 250 MG CAPSULE 1000 MG PO (08:26)
[2023-09-12] MEDS: CEFDINIR 300 MG CAPSULE PO (08:27)
[2023-09-12] MEDS: predniSONE 20 MG TABLET PO (08:27)
[2023-09-12] MEDS: busPIRone HCL 5 MG TABLET PO (08:27)
[2023-09-12] MEDS: FLUTICASONE PROPIONATE 0.05% NA SPR 16 GM BTL (*BKC) 2 SPRAY NASAL (08:28)
[2023-09-12] MEDS: ENOXAPARIN 40 MG/0.4 ML SYRINGE SUB-Q (08:31)
[2023-09-12] MEDS: FLUTICASONE/SALMETEROL 115-21 MCG INHALER 1 PUFF 2 PUFF INHALATION (08:41)
--- NOTE | 2023-09-12 11:11 | PM.DS ---
DS: Admitting Diagnosis Discharge Date 09/12/23 Admitting Diagnosis sob DS: Discharge Diagnosis Discharge Diagnosis (1) Generalized myasthenia gravis: Code(s): G70.00 - Myasthenia gravis without (acute) exacerbation Status: Acute Assessment and Plan: For her myasthenia gravis she is high risk but does not appear to be in crisis, continue prednisone 20mg qday, cellcept at 1000mg po BID and mestinon at 60mg TID. (2) Asthma: Qualifiers: Asthma complication type: unspecified Asthma persistence: unspecified Asthma severity: unspecified severity Qualified Code(s): J45.909 - Unspecified asthma, uncomplicated Code(s): J45.909 - Unspecified asthma, uncomplicated Status: Acute Assessment and Plan: She is currently on a tapering does of prednisone. Dx 11/2022 and required intubation. Followed by Dr. Rolanda Durbin neurology. (3) RSV (respiratory syncytial virus infection): Code(s): B33.8 - Other specified viral diseases Status: Acute Assessment and Plan: RSV positive 09/09 Supportive care (4) Community acquired pneumonia: Code(s): J18.9 - Pneumonia, unspecified organism Status: Acute Assessment and Plan: For her CAP bacterial and/or aspiration pneumonia, ceftriaxone, vancomycin and flagyl have been started with MRSA nares PCR and sputum cx pending. Improving, anticipate d/c in am (5) Hypokalemia: Code(s): E87.6 - Hypokalemia Status: Acute Assessment and Plan: resolved, continue to monitor Plan DVT prophylaxis with lovenox GI prophylaxis not indicated Code status full code DS: Summary Hospital Course Hospital Course: 57F w/ PMH myasthenia gravis, anxiety, asthma presents with 4-5 days of URI symptoms and is currently being treated for RSV. For her myasthenia gravis she is high risk but does not appear to be in crisis, continue prednisone 20mg qday, cellcept at 1000mg po BID and mestinon at 60mg TID. She is currently on a tapering does of prednisone. Dx 11/2022 and required intubation. Followed by Dr. Rolanda Durbin neurology. All symptoms improved significantly, she was d/c in stable condition with close outpatient f/u. Please see above and med rec for details. Time Spent with Patient Time attestation: Total time spent providing and/or coordinating discharge services: Exam Narrative: General: No acute distress, alert and oriented per baseline HEENT: Atraumatic, normocephalic, mucous membranes moist CV: Regular rate and rhythm, S1, S2 Lungs: Coarse BS, scattered crackles, diminished at bases Abdomen: Soft, nontender, nondistended Extremities: Normal to inspection Skin: No rashes noted, no lesions or wounds seen Psych: Euthymic, normal affect DS: Data Data Completed and Pending Labs on day of discharge: Labs from last 24 hours 09/12/23 09/11/23 05:37 20:56 WBC 7.0 RBC 4.35 Hgb 12.4 Hct 40.3 MCV 92.6 MCH 28.5 MCHC 30.8 L RDW 14.1 Plt Count 334 MPV 9.6 Immature Gran % (Auto) 2.6 H Neut % (Auto) 57.8 Lymph % (Auto) 21.2 Runnels % (Auto) 14.5 H Eos % (Auto) 3.0 Baso % (Auto) 0.9 Lymph # (Auto) 1.48 Runnels # (Auto) 1.0 H Eos # (Auto) 0.2 Baso # (Auto) 0.1 Abs Immat Gran (auto) 0.18 H Absolute Neuts (auto) 4.0 Absolute Nucleated RBC 0.0 Nucleated RBC % 0.0 Sodium 140 Potassium 2.8 L* Chloride 111 H Carbon Dioxide 23 Anion Gap 6 L BUN 6 L Creatinine 0.60 L Estim Creat Clear Calc 92 Estimated GFR > 60 Glucose 103 Calcium 8.4 Total Bilirubin 0.4 AST 23 ALT 34 Alkaline Phosphatase 59 Total Protein 6.0 L Albumin 3.3 L Vancomycin Trough 17.3 Preliminary micro results at discharge 09/10/23 15:00 Sputum Culture - Preliminary Sputum Discharge Plan Discharge Attending physician on discharge: Cecelia Carl Consulting providers: Memo Brown Discharging
[2023-09-12] MEDS: POTASSIUM CHLORIDE 20 MEQ ER TABLET 80 MEQ PO (12:09)
--- NOTE | 2023-09-12 12:40 | WPDNEURCNPN ---
Assessment and Plan Assessment and plan (1) Myasthenia gravis with acute exacerbation: Code(s): G70.01 - Myasthenia gravis with (acute) exacerbation Status: Acute Plan continue treatment as such Consult date: 09/26/23 HPI: Urvashi Donovan is a 57 year old female Was initially being followed by the ear nose throat specialist for the complaints of recurrent vertigo and at times facial pain in followed by a visit for the breast mass in March of 2022, on August 02 she complained of neck being heavy at times and in October of 2022 she complained of left eye droopiness which was observed by a co-worker along with difficulties in drinking water coming out of her mouth at that time she was and steroids for the Membreno's palsy which was being tapered in November of 2022 she came to the ER for the difficulties in breathing with ongoing history of bronchial asthma but her difficulties swallowing was becoming progressively worse she was noted to have left-sided facial droop and had been seen by neurologist at [facility] and in November of 2022 she had dysphagia was evaluated by the gastroenterologists in December 01 admitted to ICU when she was suspected to have myasthenia gravis and from that time onwards she carried that diagnosis. Seen by Dr. Durbin November of 2022 for the complaints of generalized weakness respiratory failure and left-sided ptosis was initiated on IVIG 0.4grams/kilogram per day for 5 days and subsequently she was followed by Dr. Durbin in the office and the last visit was in August of 2023 when she was continued on prednisone tapering dosages along with CellCept 1000mg twice a day with instruction to have the labs every month for the next 3 months and then every 3 months she was continued on Mestinon 60mg 3 times a day seen in the emergency room on 09/02 for URI symptoms though she was continued on her other medications that is CellCept 1000mg twice a day, and prednisone 20mg a day, along with the other incidental manage medication and now she has been admitted on September 09, 2023 for the URI, anxiety, and complains of increasing myasthenic symptoms at this time her RSV is positive and she is being continued on her all other medication as such that is BuSpar 5mg twice a day, cefdinir 300mg twice a day, CellCept 1000mg twice a day, prednisone 20mg daily, and pyridostigmine 60mg 3 times a day, PMFSH Past Medical History Medical History Asthma Membreno's palsy Kidney stones Myasthenia gravis Surgical History Surgical History History of ear surgery History of mandibular surgery History of throat surgery Family History Family History Father Asthma Diabetes mellitus Hypertension Heart disease Mother Diabetes mellitus Hypertension Social History Social History (Updated 08/23/23 @ 12:28 by Kayla Austin MA) Smoking packs per day: 0 Smoking cigarettes per day: 0.0 Years smoked: 0 Smoking pack-years: 0.00 Smoking status: Never smoker Second hand tobacco smoke exposure: No Alcohol intake: never Substance use: never Substance use type: does not use Do You Feel Safe in your Home?: Yes Lack of Transportation: No Lack of Food: Never True Current Housing: I Have Housing Concerned About Future Housing: No Difficulty Paying Gas/Electric Bills: No Difficulty Paying for Meds: No Currently Unemployed: No Education: Bachelor's Degree Difficulty w/ Childcare or Family Care: No Living arrangements: with family Gender identity (if verbalized by the patient): Female Spiritual care concerns: No Meds Home Medications and Allergies Home Medications Medication Instructions Recorded Confirmed Type albuterol sulfate 90 mcg/actuation 2 inh inhalation Q6H PRN Shortness 03/28/22 09/09/23 History breath activated powder inh
== END 2023-09-12 15:00 | disposition home or self-care (01) ==
LOC: ANHED 18:25 → ANHIMU 22:44 → ANH2MED 09-12 11:10 → ANHIMU 09-13 09:17
PROVIDERS: Emergency Medicine; Admitting Provider General Practice; Emergency Provider Physician Assistant; Visit Provider Student in an Organized Health Care Education/Training Program
DX: G70.00 Myasthenia gravis without (acute) exacerbation (principal); J45.909 Unspecified asthma, uncomplicated; J12.1 Respiratory syncytial virus pneumonia; E87.6 Hypokalemia; R94.31 Abnormal electrocardiogram [ECG] [EKG]; Z20.822 Contact with and (suspected) exposure to COVID-19; Z79.51 Long term (current) use of inhaled steroids; Z79.52 Long term (current) use of systemic steroids; Z79.899 Other long term (current) drug therapy; Z83.6 Family history of other diseases of the respiratory system
CPT/HCPCS: 36415; 71045; 71250; 80053; 80202; 81001; 83605; 83735; 84145; 85025; 86140; 87070; 87147; 87181; 87186; 87205; 87637; 87641; 93005; 94640; 96361; 96365; 96366; 96367; 96372; 96375; 96376; 99285; A9270; G0378; J0696; J1650; J1836; J2405; J3370; J3480; J7030; J7040; J7512; J7517

== ENCOUNTER 2024-02-01 08:44 | Outpatient (CLI) | payer OTHER, SELFPAY ==
--- NOTE | 2024-02-02 07:25 | WPDPFTINT ---
PFT Procedure Performed PFT Procedure Performed Plethysmography (Lung Vol) Diffusing Cap (DLCO) Flow Vol Loop Spirometry w/o Bronchodil PFT Interpretation This is a pulmonary function test with spirometry, plethysmography and diffusing capacity. The test was performed and results interpreted in accordance with the 2019 and 2005 ATS/ERS Task Force guidelines respectively using the Global Lung Function Initiative-2012 reference equations. Patient demonstrated good effort and cooperation. Reproducibility criteria were met. The quality of the spirometry maneuver was Grade A. Findings: Spirometry: The contour the inspiratory and expiratory flow tracing are normal. The FVC is 2.75 L, 87% predicted. The FEV1 is 2.09 L, 83% predicted. The FEV1: FVC ratio 76%. Plethysmography: The total lung capacity is 6.47 L, 132% predicted. The functional residual capacity is 3.70 L, 134% predicted. The residual volume is 3.51 L, 189% predicted. The residual volume: Total lung capacity ratio is 54%. Diffusing capacity: The diffusing capacity unadjusted for hemoglobin and carboxyhemoglobin is 20.9, 97% predicted. The diffusing capacity adjusted for alveolar volume is 4.81, 106% predicted. Impression: The spirometry is normal without evidence of an obstructive abnormality. The increase in residual volume to total lung volume ratio is consistent with hyperinflation. The diffusing capacity is normal. There are no prior studies for comparison
== END 2024-02-01 08:45 | disposition home or self-care (01) ==
PROVIDERS: PCP Family Medicine; Visit Provider Student in an Organized Health Care Education/Training Program
DX: J45.909 Unspecified asthma, uncomplicated (principal); G70.00 Myasthenia gravis without (acute) exacerbation
CPT/HCPCS: 94375; 94726; 94729

== ENCOUNTER 2024-02-07 06:08 | Day surgery (SDC) | payer OTHER, SELFPAY ==
[2023-10-25 07:59] VITALS: BMI 32.0
[2023-11-13 11:58] VITALS: BMI 31.8
--- NOTE | 2024-02-06 13:54 | WPDANESEPPF ---
Anes - Initial Pre Proc Eval Procedure: Operation Date: 02/07/24 08:00 Proposed Procedures p Screening Colonoscopy - Alexy Wesley MD Date/Time: 02/06/24 13:54 Surgeon: Alexy Wesley MD Pre Op Diagnosis: Neoplasm Screening, Other Fecal Abnormalities Patient Data Age: 58 Gender: F Height: 1.57 m Weight: 79 kg Allergies Allergy/AdvReac Type Severity Reaction Status Date / Time penicillin G Allergy Unknown Unknown Verified 02/07/24 07:00 levofloxacin [From Levaquin] Allergy Anaphylactic Verified 02/07/24 07:00 Shock codeine AdvReac Vomiting Verified 02/07/24 07:00 Home Medications Medication Instructions Recorded Confirmed Type albuterol sulfate 90 mcg/actuation 2 inh inhalation Q6H PRN Shortness 03/28/22 02/07/24 History breath activated powder inhaler Of Breath buspirone 5 mg tablet 5 mg PO BID 03/28/22 02/07/24 History fluticasone propionate 50 2 spray intranasal DAILY 03/28/22 02/07/24 History mcg/actuation nasal spray,suspension (Flonase Allergy Relief) budesonide-formoterol HFA 160 2 puff inhalation BID 11/18/22 02/07/24 History mcg-4.5 mcg/actuation aerosol inhaler (Symbicort) mycophenolate mofetil 500 mg 1,000 mg PO BID #120 tabs 09/11/23 02/07/24 Rx tablet (CellCept) ipratropium 0.5 mg-albuterol 3 mg 3 ml inhalation QID PRN shortness 09/12/23 02/07/24 Rx (2.5 mg base)/3 mL nebulization of breath #90 mL soln nebulizer accessories #1 ea 09/12/23 Rx nebulizer and compressor #1 ea 09/12/23 Rx pyridostigmine bromide 60 mg 60 mg PO TID #90 tabs 12/13/23 02/07/24 Rx tablet (Mestinon) prednisone 20 mg tablet 20 mg PO DAILY 01/19/24 02/07/24 History Patient hx anesthesia problems: none Family hx anesthesia problems: none Results Review: All pre-operative results and documents have been reviewed as part of the pre-operative evaluation. [facility] Past Medical History Medical History (Updated 02/07/24 @ 07:08 by Alexy Wesley MD) Anxiety Asthma Membreno's palsy GERD (gastroesophageal reflux disease) Kidney stones Myasthenia gravis Surgical History Surgical History History of ear surgery History of mandibular surgery History of throat surgery Family History Family History Father Asthma Diabetes mellitus Hypertension Heart disease Mother Diabetes mellitus Hypertension Social History Social History Smoking packs per day: 0 Smoking cigarettes per day: 0.0 Years smoked: 0 Smoking pack-years: 0.00 Smoking status: Former smoker Second hand tobacco smoke exposure: No Alcohol intake: never Substance use: never Substance use type: does not use Do You Feel Safe in your Home?: Yes Lack of Transportation: No Lack of Food: Never True Current Housing: I Have Housing Concerned About Future Housing: No Difficulty Paying Gas/Electric Bills: No Difficulty Paying for Meds: No Currently Unemployed: No Education: Bachelor's Degree Difficulty w/ Childcare or Family Care: No Living arrangements: alone Gender identity (if verbalized by the patient): Female Spiritual care concerns: No Anes - Eval Final PreProcedure Day of Procedure 02/06/24 13:54 Patient weight: obese Heart: regular rate and rhythm Lungs: clear to auscultation Airway: Mallampati scale class II Neurological: alert and oriented Last oral intake: >/= 8 hours ASA classification: III Emergent: no Anesthetic plan: proceed Anesthesia type and monitoring: general GIVS and standard monitoring Results Review: All pre-operative results and documents have been reviewed as part of the pre-operative evaluation. Informed Consent: The patient's anesthetic plan and its attendant risks and benefits were discussed with the patient/family/POA. Questions were solicited and answers provided to t
--- NOTE | 2024-02-07 07:05 | PM.HPGS ---
History of Present Illness History of Present Illness Consent: Risks, benefits, and alternatives have been discussed and questions answered. Patient agrees to proceed with procedure. Chief complaint: Neoplasm Screening, Other Fecal Abnormalities Narrative: Urvashi Donovan is a 58 year old female presents for screening colonoscopy. Patient has a history of underlying myasthenia gravis. This felt to be stable. Positive Cologuard stool test. Patient referred for colonoscopy. She reports this medication for her myasthenia gives her irregular bowel movements. Is any bleeding. Family history noncontributory. Review of Systems Review of Systems: All systems reviewed & are unremarkable except as noted in HPI and below PMFSH Past Medical History Medical History (Updated 02/07/24 @ 07:08 by Alexy Wesley MD) Anxiety Asthma Membreno's palsy GERD (gastroesophageal reflux disease) Kidney stones Myasthenia gravis Surgical History Surgical History History of ear surgery History of mandibular surgery History of throat surgery Family History Family History Father Asthma Diabetes mellitus Hypertension Heart disease Mother Diabetes mellitus Hypertension Social History Social History Smoking packs per day: 0 Smoking cigarettes per day: 0.0 Years smoked: 0 Smoking pack-years: 0.00 Smoking status: Former smoker Second hand tobacco smoke exposure: No Alcohol intake: never Substance use: never Substance use type: does not use Do You Feel Safe in your Home?: Yes Lack of Transportation: No Lack of Food: Never True Current Housing: I Have Housing Concerned About Future Housing: No Difficulty Paying Gas/Electric Bills: No Difficulty Paying for Meds: No Currently Unemployed: No Education: Bachelor's Degree Difficulty w/ Childcare or Family Care: No Living arrangements: alone Gender identity (if verbalized by the patient): Female Spiritual care concerns: No Meds Home Medications and Allergies Home Medications Medication Instructions Recorded Confirmed Type albuterol sulfate 90 mcg/actuation 2 inh inhalation Q6H PRN Shortness 03/28/22 01/19/24 History breath activated powder inhaler Of Breath buspirone 5 mg tablet 5 mg PO BID 03/28/22 01/19/24 History fluticasone propionate 50 2 spray intranasal DAILY 03/28/22 01/19/24 History mcg/actuation nasal spray,suspension (Flonase Allergy Relief) budesonide-formoterol HFA 160 2 puff inhalation BID 11/18/22 01/19/24 History mcg-4.5 mcg/actuation aerosol inhaler (Symbicort) mycophenolate mofetil 500 mg 1,000 mg PO BID #120 tabs 09/11/23 01/19/24 Rx tablet (CellCept) ipratropium 0.5 mg-albuterol 3 mg 3 ml inhalation QID PRN shortness 09/12/23 01/19/24 Rx (2.5 mg base)/3 mL nebulization of breath #90 mL soln nebulizer accessories #1 ea 09/12/23 Rx nebulizer and compressor #1 ea 09/12/23 Rx pyridostigmine bromide 60 mg 60 mg PO TID #90 tabs 12/13/23 01/19/24 Rx tablet (Mestinon) prednisone 20 mg tablet 20 mg PO DAILY 01/19/24 01/19/24 History Allergies Allergy/AdvReac Type Severity Reaction Status Date / Time penicillin G Allergy Unknown Unknown Verified 02/07/24 07:00 levofloxacin [From Levaquin] Allergy Anaphylactic Verified 02/07/24 07:00 Shock codeine AdvReac Vomiting Verified 02/07/24 07:00 Exam Narrative: Physical exam reveals patient to be alert. Vital signs stable. HEENT exam is unremarkable. No significant lid lag noted today. Lungs are clear to auscultation. Bowel sounds are normal. Abdomen bowel sounds are present soft nontender with no organomegaly. Digital external rectal exam is normal. Assessment and Plan Assessment and plan (1) Positive colorectal cancer screening using Cologuard test:
[2024-02-07 07:14] VITALS: BP 155/94; PULSE 98; RESP 18; TEMP 36.9; O2SAT 100; BMI 32.2
[2024-02-07] MEDS: LACTATED RINGERS 1,000 ML 150 ML IV CONT (07:25)
[2024-02-07 08:12] VITALS: BP 119/74; PULSE 92; RESP 16; O2SAT 96
[2024-02-07 08:22] VITALS: BP 120/76; PULSE 92; RESP 16; O2SAT 97
[2024-02-07 08:32] VITALS: BP 124/80; PULSE 89; RESP 14; O2SAT 99
--- NOTE | 2024-02-07 12:54 | WPDANESPN ---
Anes - Prog Note Post-Op Date/Time: 02/07/24 12:54 Cardiovascular status: normal Respiratory status: normal Airway patency: baseline Mental status: baseline Post-Op hydration status: normal Vital Signs: Last Vital Signs Temp 36.9 C 02/07/24 07:14 Pulse 89 02/07/24 08:32 Resp 14 02/07/24 08:32 BP 124/80 02/07/24 08:32 Pulse Ox 99 02/07/24 08:32 O2 Del Method Room Air 02/07/24 08:32 Pain Score (VAS): 0 I/O: Intake & Output 02/06/24 02/07/24 02/07/24 23:59 07:59 15:59 Intake Total 600 Balance 600 Post-procedural complaints: none Patient Feedback: Patient satisfied with anesthetic care. Other Findings: Patient vital signs back to baseline. Patient denies nausea and vomiting. Patient's pain under control. Patient OK for discharge.
== END 2024-02-07 08:48 | disposition home or self-care (01) ==
PROVIDERS: PCP Family Medicine; Visit Provider Internal Medicine Gastroenterology
PROC: 0DJD8ZZ Inspection of Lower Intestinal Tract, Via Natural or Artificial Opening Endoscopic (ICD-10-PCS; CPT 45378; principal; 2024-02-07 08:00)
DX: R19.5 Other fecal abnormalities (principal); D12.5 Benign neoplasm of sigmoid colon; K57.30 Diverticulosis of large intestine without perforation or abscess without bleeding; K64.8 Other hemorrhoids
CPT/HCPCS: 45385

== ENCOUNTER 2024-02-07 08:59 | Outpatient (NON) | payer OTHER, SELFPAY | END 2024-02-07 09:00 | disposition home or self-care (01) | LOC: ANHLAB 02-08 09:00 | PROVIDERS: PCP Family Medicine; Visit Provider Internal Medicine Gastroenterology | DX: D12.5 Benign neoplasm of sigmoid colon (principal); R19.5 Other fecal abnormalities | CPT/HCPCS: 88305 ==

== ENCOUNTER 2024-09-30 11:00 | Outpatient (CLI) | payer OTHER, SELFPAY ==
--- OUTSIDE RECORDS SUMMARY | 2024-10-03 12:55 | XMS_ITS | Clinical Summary ---
Author Organization [facility] Address [address] [place] [address] Care Team Providers Care Traverse Rod Assembler Name Role Phone Unavailable Primary Care Provider Unavailabl e Source Comments [facility],non-owned Affiliates and Associated Physician Practices is amultiple site organization consisting of ambulatory clinics and hospital sitesin [place], [place] and [place]. This disclosure is being madepursuant to the Care Everywhere program and may not contain all information available regarding this patient. Last updated 18.[facility] Allergies Active Allergy Reactions Criticality Noted Date Comments Penicillins Rash Medium 01/25/2017 Medications * Be aware that medications may not be up to date on this document. Alwaysverify current medications with the patient. Medication Sig Dispensed Refills Start Date End Date Status BusPIRone HCl (BUSPAR PO) Active Beclomethasone Dipropionate (QVAR IN) Ac tive albuterol HFA (PROVENTIL;VENTOLIN;[place] OAIR) 108 (90 BASE) MCG/ACT inhaler Inhale 2 puffs by mouth every 6 hours as needed Active Montelukast Sodium (SINGULAIR PO) Active OMEPRAZOLE PO Active Drospirenone-Ethinyl Estradiol (RYLEE PO) Acti ve fluticasone propionate (FLONASE) 50 MCG/ACT nasal spray [place] 2 sprays into each nostril once daily Active meclizine (ANTIVERT) 25 MG tablet Take 1 tablet by mouth 2 times daily 30 tablet 04/26/2020 Active Social History Tobacco Use Types Packs/Day Years Used Date Smoking Tobacco: Never Smokeless Tobacco: Never Sex and Gender Information Value Date Recorded Sex Assigned at Not on file Gender Identity Not on file Sexual Orientation Not on file Last Filed Vital Signs Vital Sign Reading Time Taken Comments Blood Pressure 124/84 04/26/2020 10:03 AM CDT Pulse 122 04/26/2020 10:03 AM CDT Temperature 37.1 ??C (98.7 ??F) 04/26/2020 10:03 AM C DT Respiratory Rate 16 04/26/2020 10:03 AM CDT Oxygen Saturation 98% 04/26/2020 10:03 AM CDT Inhaled Oxygen Concentration - - Weight 71.4 kg (157 lb 8 oz) 04/26/2020 10:03 AM CDT Height 160 cm (5' 3 ) 04/26/2020 10:03 AM CDT Body Mass Index 27.9 04/26/2020 10:03 AM CDT Plan of Treatment Health Maintenance Due Date Last Done Comments COLOGUARD (AGES 45-75) - COL ON CA SCREENING 1967 COLON MONITORING 1967 COLONOSCOPY - COLON CA SCREENING 1967 CT COLONOGRAPHY - COLON CA SCREENING 1967 Colorectal Cancer Screening 1967 FIT - COLON CA SCREENING 1967 FLEX SIG - COLON CA SCREENING 1967 LIPID TESTING 1967 MAMMOGRAM 1967 PAP SMEAR 1967 HIV SCREENING 11/22/1982 HEPATITIS C SCREENING 11/18/1985 DTAP/TDAP/TD VACCINES (1 - Tdap) 11/22/1986 HEPATITIS B VACCINE (1 of 3 - 19+ 3-dose series) 11/22/1986 SCREENING FOR DIABETES 09/22/2017 PNEUMOCOCCAL VACCINE 50+ (1 of 1 - PCV) 11/22/2017 ZOSTER VACCINE (1 of 2) 11/22/2017 COVID-19 VACCINE ( - 2023-2 5 season) 2024 INFLUENZA VACCINE (#1) 2024 DEPRESSION SCREENING 09/11/2024 HIB VACCINE Aged Out No longer eligi ble based on patient's age to complete this topic HPV VACCINE Aged Out No longer eligi ble based on patient's age to complete this topic MENINGOCOCCAL (Group B) VACCINE Aged Out No longer eligible based on patient's age to complete this topic MENINGOCOCCAL VACCINE Aged Out No marino lorne eligible based on patient's age to complete this topic PNEUMOCOCCAL VACCINE Aged Out No long er eligible based on patient's age to complete this topic Advance Directives Documents on File Type Date Recorded 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
--- OUTSIDE RECORDS SUMMARY | 2024-10-03 12:55 | XMS_ITS | Continuity of Care Document ---
Author Organization [facility] Address [address] [place] [address] Phone Care Team Providers Care Metal Refiner Name Role Phone Irwin Melo Unavailable Unavailable Procedures Procedure Date Eye Exam, New Patient Refraction Advance Directives Directive Yes / No Effective Date File Name No Information Encounters Encounter Description Practice Location Reason(s) For Visit Diagnoses Date Provider Providers Copied on Encounter [facility], [address] [place], [place], [id number], [place] tel:[phone] [facility] No Information [phone] Srinathsandra Gayle. [address], [place], [address], [place]. tel:[phone] Family History Family Member Type Diagnosis Age At Onset No Information Payers Payer name Insurance type Covered republican ID Authoriza tion(s) No Information Social History [...]
--- OUTSIDE RECORDS SUMMARY | 2024-10-03 12:55 | XMS_ITS | Referral Summary ---
Author Organization [facility] Address [address] [place] [address] Care Team Providers Care Pan Dumper Name Role Phone Unavailable Primary Care Provider Unavailabl e Source Comments [facility],non-owned Affiliates and Associated Physician Practices is amultiple site organization consisting of ambulatory clinics and hospital sitesin [place], [place], [place] and [place]. This disclosure is being madepursuant to the Care Everywhere program and may not contain all information available regarding this patient. Last updated 18.[facility] Allergies Active Allergy Reactions Criticality Noted Date Comments Penicillins Rash Medium 01/25/2017 Medications * Be aware that medications may not be up to date on this document. Alwaysverify current medications with the patient. Medication Sig Dispensed Refills Start Date End Date Status BusPIRone HCl (BUSPAR PO) Active Beclomethasone Dipropionate (QVAR IN) Ac tive albuterol HFA (PROVENTIL;VENTOLIN;[place] OAIR) 108 (90 BASE) MCG/ACT inhaler Inhale 2 puffs by mouth every 6 hours as needed Active Montelukast Sodium (SINGULAIR PO) Active OMEPRAZOLE PO Active Drospirenone-Ethinyl Estradiol (RYLEE PO) Acti ve fluticasone propionate (FLONASE) 50 MCG/ACT nasal spray [place] 2 sprays into each nostril once daily [...] 04/26/2020 10:03 AM CDT Plan of Treatment Not on file Advance Directives Documents on File Type Date Recorded 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
--- OUTSIDE RECORDS SUMMARY | 2024-10-03 12:55 | XMS_ITS | Patient Health Summary ---
Author Organization [facility] Address [address] [place] [address] Care Team Providers Care Conditioner Tumbler Name Role Phone Unavailable Primary Care Provider Unavailabl e Note from [facility][note 3],non-owned Affiliates and Associated Physician Practices is amultiple site organization consisting of ambulatory clinics and hospital sitesin [place], [place], [place] and [place]. This disclosure is being madepursuant to the Care Everywhere program and may not contain all information available regarding this patient. Last updated 18.[facility] Allergies * Penicillins(Rash) -Medium Criticality Medications * Be aware that medications may not be up to date on this document. Alwaysverify current medications with the patient. * BusPIRone HCl (BUSPAR PO) * Beclomethasone Dipropionate (QVAR IN) * albuterol HFA (PROVENTIL;VENTOLIN;PROAIR) 108 (90 BASE) MCG/ACT inhaler Inhale 2 puffs by mouth every 6 hours as needed * Montelukast Sodium (SINGULAIR PO) * OMEPRAZOLE PO * Drospirenone-Ethinyl Estradiol (RYLEE PO) * fluticasone propionate (FLONASE) 50 MCG/ACT nasal spray [place] 2 sprays into each nostril once daily * meclizine (ANTIVERT) 25 MG tablet(Started 04/26/2020) Take 1 tablet by mouth 2 times daily Social History Tobacco Use Types Packs/Day Years [...] Mass Index 27.9 04/26/2020 10:03 AM CDT Procedures * CULTURE RESPIRATORY UPPER(Performed 11/04/2019) Performed for Pharyngitis due to other organism * STREP A SCREEN - POINT OF CARE (AMB) STL(Performed 11/04/2019) Performed for Pharyngitis due to other organism * STREP A SCREEN - POINT OF CARE (AMB) STL(Performed 08/19/2019) Performed for Acute streptococcal pharyngitis * STREP A SCREEN - POINT OF CARE (AMB) STL(Performed 12/15/2018) Performed for Mild intermittent asthmatic bronchitis with exacerbation (HCC) * STREP A SCREEN - POINT OF CARE (AMB) STL(Performed 03/25/2018) Performed for Nasopharyngitis acute * STREP A SCREEN - POINT OF CARE (AMB) STL(Performed 10/24/2017) Performed for Acute streptococcal pharyngitis Results * [facility] Throat Culture (11/04/2019 6:49 PM MANAGER ROOFING) Upper Respiratory Culture Final report [facility] ACCOUNT BILL Result 1 [facility] ACCOUNT BILL Comment:Routine respiratory stef Microbiology ENTIRE THROAT (SURFACE REGION OF NECK) / Unknown 11/04/2019 6:49 PM MANAGER ROOFING 11/05/2019 Narrative Resulting Agency Comment Lab Testing performed at: [facility] [address] ??[facility] [id number] Urvashi Hickman PARTS COUNTERMAN-MALWARE ANALYST LAB - [place] CROBIOLOGY ORDERABLES [facility] ACCOUNT BILL [address] [place] [address] * STREP A SCREEN (11/04/2019) Only the most recent of5 resultswithin the time period is included. Strep A Rapid POCT Negative Negative Strep A Internal Control Present Lot # [id number] Expiration Date 02/08/2021 Throat ENTIRE THROAT (SURFACE REGION OF NECK) / Unknown 11/04/2019 Urvashi Hickman PARTS COUNTERMAN-MALWARE ANALYST LAB - PO INT OF CARE ORDERABLES
== END 2024-09-30 11:01 | disposition home or self-care (01) ==
LOC: ANHLAB 11:01
PROVIDERS: PCP Family Medicine; Visit Provider Psychiatry & Neurology Neurology
DX: G70.00 Myasthenia gravis without (acute) exacerbation (principal)
CPT/HCPCS: 36415; 86043

== ENCOUNTER 2024-11-05 16:05 | Outpatient (CLI) | payer OTHER, SELFPAY ==
--- NOTE | ~2024-11-05 | MM_ITS ---
EXAMINATION: MM screening carmen BI w radha HISTORY: Screening mammogram TECHNIQUE: Craniocaudal and mediolateral oblique 3-D tomosynthesis images were obtained and synthetic 2-D images were generated. CAD analysis was submitted and interpreted. COMPARISON: 06/13/2023, 03/02/2022 BREAST PARENCHYMAL COMPOSITION:Not Dense. There are scattered areas of fibroglandular density. FINDINGS: No suspicious mass, calcification, or architectural distortion are identified in either derek ast to suggest malignancy. There has been no suspicious interval change. IMPRESSION: No mammographic evidence of malignancy. Recommend routine screening mammography in one year. BI-RADS Category 1: Negative Reviewed, dictated and finalized at location . SOFTWARE DEVELOPMENT ENGINEER
--- OUTSIDE RECORDS SUMMARY | 2024-11-05 18:29 | XMS_ITS | Referral Summary ---
Author Organization [facility] Address [address] [place] [address] Care Team Providers Care Glass Cylinder Flanger Name Role Phone Unavailable Primary Care Provider Unavailabl e Source Comments [facility],non-owned Affiliates and Associated Physician Practices is amultiple site organization consisting of ambulatory clinics and hospital sitesin [place], [place], [place] and [place]. This disclosure is being madepursuant to the Care Everywhere program and may not contain all information available regarding this patient. Last updated 18.[facility] Allergies Active Allergy Reactions Criticality Noted Date Comments Penicillins Rash Medium 01/25/2017 Medications * Be aware that medications may not be up to date on this document. Alwaysverify current medications with the patient. Medication Sig Dispensed Refills Start Date End Date Status BusPIRone HCl (BUSPAR PO) Active Beclomethasone Dipropionate (QVAR IN) Ac tive albuterol HFA (PROVENTIL;VENTOLIN;[place] OAIR) 108 (90 BASE) MCG/ACT inhaler Inhale 2 puffs by mouth every 6 hours as needed Active Montelukast Sodium (SINGULAIR PO) Active OMEPRAZOLE PO Active Drospirenone-Ethinyl Estradiol (RYLEE PO) Acti ve fluticasone propionate (FLONASE) 50 MCG/ACT nasal spray [place] 2 sprays into each nostril once daily [...] 122 04/26/2020 10:03 AM CDT Temperature 37.1 C (98.7 F) 04/26/2020 10:03 AM CDT Respiratory Rate 16 04/26/2020 10:03 AM CDT Oxygen Saturation 98% 04/26/2020 10:03 AM CDT Inhaled Oxygen Concentration - - Weight 71.4 kg (157 lb 8 oz) 04/26/2020 10:03 AM CDT Height 160 cm (5' 3 ) 04/26/2020 10:03 AM CDT Body Mass Index 27.9 04/26/2020 10:03 AM CDT Plan of Treatment Not on file Advance Directives Documents on File Type Date Recorded Patient Detail Assembler Expl 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
--- OUTSIDE RECORDS SUMMARY | 2024-11-05 18:29 | XMS_ITS | Clinical Summary ---
Author Organization [facility] Address [address] [place] [address] Care Team Providers Care Integration Aide Name Role Phone Unavailable Primary Care Provider Unavailabl e Source Comments [facility],non-owned Affiliates and Associated Physician Practices is amultiple site organization consisting of ambulatory clinics and hospital sitesin [place], [place], [place] and [place]. This disclosure is being madepursuant to the Care Everywhere program and may not contain all information available regarding this patient. Last updated 18.[facility] Allergies Active Allergy Reactions Criticality Noted Date Comments Penicillins Rash Medium 01/25/2017 Medications * Be aware that medications may not be up to date on this document. Alwaysverify current medications with the patient. Medication Sig Dispensed Refills Start Date End Date Status BusPIRone HCl (BUSPAR PO) Active Beclomethasone Dipropionate (QVAR IN) Ac tive albuterol HFA (PROVENTIL;VENTOLIN;[place] OAIR) 108 (90 BASE) MCG/ACT inhaler Inhale 2 puffs by mouth every 6 hours as needed Active Montelukast Sodium (SINGULAIR PO) Active OMEPRAZOLE PO Active Drospirenone-Ethinyl Estradiol (RYLEE PO) Acti ve fluticasone propionate (FLONASE) 50 MCG/ACT nasal spray [place] 2 sprays into each nostril once daily [...] VACCINE (1 of 2) 11/22/2017 COVID-19 VACCINE (1 - 2023-2 5 season) 2024 INFLUENZA VACCINE [...] Documents on File Type Date Recorded 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
--- OUTSIDE RECORDS SUMMARY | 2024-11-05 18:29 | XMS_ITS | Patient Health Summary ---
Author Organization [facility] Address [address] [place] [address] Care Team Providers Care Route Rider Supervisor Name Role Phone Unavailable Primary Care Provider Unavailabl e Note from [facility],non-owned Affiliates and Associated Physician Practices is amultiple site organization consisting of ambulatory clinics and hospital sitesin [place], [place], [place] and [place]. This disclosure is being madepursuant to the Care Everywhere program and may not contain all information available regarding this patient. Last updated 18.[facility] Allergies * Penicillins(Rash) -Medium Criticality Medications * [...] fluticasone propionate (FLONASE) 50 MCG/ACT nasal spray [place] 2 sprays into each nostril once daily [...] * [facility] Throat Culture (11/04/2019 6:49 PM CUSTODIAL ENGINEER) Upper Respiratory Culture Final report [facility] ACCOUNT BILL Result 1 [facility] ACCOUNT BILL Comment:Routine respiratory stef Microbiology ENTIRE THROAT (SURFACE REGION OF NECK) / Unknown 11/04/2019 6:49 PM CUSTODIAL ENGINEER 11/05/2019 Narrative Resulting Agency Comment Lab Testing performed at: [facility] [address] [phone] Urvashi Hickman BOILER BLOWER-CHIEF REVENUE OFFICER LAB - [place] CROBIOLOGY ORDERABLES [facility] ACCOUNT BILL [address] [place] [address] * STREP A SCREEN (11/04/2019) Only the most recent of5 resultswithin the time period is included. Strep A Rapid POCT Negative Negative Strep A Internal Control Present Lot # [id number] Expiration Date 02/08/2021 Throat ENTIRE THROAT (SURFACE REGION OF NECK) / Unknown 11/04/2019 Urvashi Hickman BOILER BLOWER-CHIEF REVENUE OFFICER LAB - PO INT OF CARE ORDERABLES
== END 2024-11-05 16:06 | disposition home or self-care (01) ==
PROVIDERS: PCP Family Medicine; Visit Provider Family Medicine
DX: Z12.31 Encounter for screening mammogram for malignant neoplasm of breast (principal)
CPT/HCPCS: 77063; 77067

== ENCOUNTER 2025-06-21 08:24 | Outpatient (CLI) | payer OTHER, SELFPAY ==
--- OUTSIDE RECORDS SUMMARY | 2009-12-08 09:00 | XMS_ITS | Continuity of Care Document ---
Author Organization [facility] Address [address] [place] [address] Phone Care Team Providers Care Usability Architect Name Role Phone Irwin Melo Unavailable Unavailable Procedures Procedure Date Eye Exam, New Patient Refraction Advance Directives Directive Yes / No Effective Date File Name No Information Encounters Encounter Description Practice Location Reason(s) For Visit Diagnoses Date Provider Providers Copied on Encounter [facility], [address], [place], [place], [id number], [place] tel:[phone] [facility] No Information [phone] Srinathsandra Gayle. [address] [address], [place], [address], [place]. tel:[phone] Family History Family Member Type Diagnosis Age At Onset No Information Payers Payer name Insurance type Covered democrat ID Authoriza tion(s) No Information Social History Type Description Quantity Date Captured Comments Sex Female Smoking Status No Information Chief Complaint And Reason For Visit No Information Reason For Referral Reason For Referral No Information History Of Present Illness Encounter Date Complaint History Of Prese nt Illness No Information Functional Status Date Functional Assessmen t No Information Instructions Date Instruction Additional Infor mation No Information Assessments Type Assessment Date No Information Patient Care Teams Name Effective Dates (start - stop) Status Members No Information
--- OUTSIDE RECORDS SUMMARY | 2025-06-21 08:27 | XMS_ITS | Clinical Summary ---
Author Organization [facility] Address [address] [place] [address] Care Team Providers Care Classified Ad Clerk Name Role Phone Unavailable Primary Care Provider Unavailabl e Source Comments [facility],non-owned Affiliates and Associated Physician Practices is amultiple site organization consisting of ambulatory clinics and hospital sitesin [place], [place], [place] and [place]. This disclosure is being madepursuant to the Care Everywhere program and may not contain all information available regarding this patient. Last updated 18.[facility] Allergies Active Allergy Reactions Criticality Noted Date Comments Penicillins Rash Medium 01/25/2017 Medications * Be aware that medications may not be up to date on this document. Alwaysverify current medications with the patient. BusPIRone HCl (BUSPAR PO) Active Beclomethasone Dipropionate (QVAR IN) Active albuterol HFA (PROVENTIL;VENTOL IN;PROAIR) 108 (90 BASE) MCG/ACT inhaler Inhale 2 puffs by mouth every 6 hours as needed Active Montelukast Sodium (SINGULAIR PO) Active OMEPRAZOLE PO Active Drospirenone-Ethi nyl Estradiol (RYLEE PO) Active fluticasone propionate (FLONASE) 50 MCG/ACT nasal spray Lamar 2 sprays into each nostril once daily Active meclizine (ANTIVERT) 25 MG tablet Take 1 tablet by mouth 2 times daily 30 tablet 0 Active Social History Tobacco Use Types Packs/Day Years Used Date Smoking Tobacco: Never Smokeless Tobacco: Never Comments No Sex and Gender Information Value Date Recorded Sex Assigned at Not on file Legal Sex Female 3:16 PM CDT Gender Identity Not on file Sexual Orientation [...] 10:03 AM CDT Height 160 cm (5' 3) 04/26/2020 10:03 AM CDT Body Mass Index [...] SCREENING 1967 LIPID TESTING 1967 MAMMOGRAM 1967 HIV SCREENING 11/22/1982 HEPATITIS C SCREENING 11/18/1985 DTAP/TDAP/TD VACCINES (1 - Tdap) 11/22/1986 HEPATITIS B VACCINE (1 of 3 - 19+ 3-dose series) 11/22/1986 PAP SMEAR 11/22/1988 SCREENING FOR DIABETES 09/22/2017 PNEUMOCOCCAL VACCINE 50+ (1 of 1 - PCV) 11/22/2017 ZOSTER VACCINE (1 of 2) 11/22/2017 DEPRESSION SCREENING 09/11/2024 COVID-19 VACCINE (1 - 2023-2 5 season) 2025 INFLUENZA VACCINE (#1) 2025 HIB VACCINE Aged Out No longer eligi ble based on patient's age to complete this topic HPV VACCINE Aged Out No longer eligi ble based on patient's age to complete this topic MENINGOCOCCAL (Group B) VACC INE SHARED DECISION-MAKING Aged Out No longer eligibl e based on patient's age to complete this topic MENINGOCOCCAL GROUPS A/C/Y/W VACCINE Aged Out No longer eligible b ased on patient's age to complete this topic Insurance [employer] * Guarantor: [employer] Account Type Relation to Patient Date of Phone Billing Address Personal/Family [address] [place] [address] [employer] SELF PAY NO INSURANCE Member Subscriber Plan / Payer (Ef fective for All Dates) Name:Salty Donovan Member ID:Not on file Relation to Subscriber:Not on file Name:SALTY DONOVAN Subscriber ID:Not on file (Home) Address: [address] [place], [place] [id number] Payer ID:Not on file Group ID:Not on file Type:Self Pay Address: [place], [place] * Guarantor: SALTY DONOVAN Account Type Relation to Patient Date of Phone Billing Address Personal/Family [address] [place] [address] [employer] SELF PAY NO INSURANCE Member Subscriber Plan / Payer (Ef fective for All Dates) Name:Salty Donovan Member ID:Not on file Relation to Subscriber:Not on file Name:SALTY DONOVAN Subscriber ID:Not on file (Home) Address: [address] [place] [address] Payer ID:Not on file Group ID:Not on file Type:Self Pay Address: [place], [place] * Guarantor: SALTY DONOVAN Account Type Relation to Patient Date of Phone Billing Address Personal/Family [address] [place] [address] [employer] SELF PAY NO INSURANCE Member Subscriber Plan / Payer (Ef fective for All Dates) Name:Salty Donovan Member ID:Not on file Relation to Subscriber:Not on file Name:SALTY DONOVAN Subscriber ID:Not on file (Home) Address: [address] [place] [id number] Payer ID:Not on file Group ID:Not on file Type:Self Pay Address: [place], [place] Advance Directives Documents on File Type Date Recorded 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
[2025-06-21 09:04] LABS: Hematocrit 45.9 % (37.0-47.0); Hemoglobin 14.8 g/dL (12.0-15.0); Immature Granulocyte Percent A 0.7 % (0-0.5); Lymphocytes Absolute Auto 2.27 K/mm3 (0.9-3.2); Mean Corpuscular HGB Conc 32.2 g/dl (32-36); Mean Corpuscular Hemoglobin 28.7 pg (26-34); Mean Corpuscular Volume 89.1 fl (80-100); Nucleated Red Blood Cells Absolute Auto 0.000 K/mm3 (0.0-0.012); Nucleated Red Blood Cells Perc 0.0 % (0.0-0.2); Platelet Count Result 348 k/mm3 (150-375); Red Blood Count 5.15 M/mm3 (4.2-5.4); White Blood Count 7.3 K/mm3 (4.5-10.0)
[2025-06-21 09:22] LABS: Alanine Aminotransferase 15 U/L (6-35); Albumin Level 4.2 g/dL (3.5-5.1); Alkaline Phosphatase 54 U/L (38-126); Anion Gap 3 mmol/L (4-12); Aspartate Amino Transferase 20 U/L (14-36); Bilirubin,Total 0.8 mg/dL (0.2-1.3); Blood Urea Nitrogen 20 mg/dL (7-17); Calcium 9.1 mg/dL (8.4-10.2); Carbon Dioxide 27 mmol/L (22-30); Chloride 108 mmol/L (98-107); Estimated Glomerular Filt Rate > 60; Glucose 95 mg/dL (65-110); Hemoglobin A1C 5.7 % (<5.7); Potassium 4.3 mmol/L (3.4-5.0); Sodium 138 mmol/L (137-145); Total Protein 7.2 g/dL (6.3-8.2)
== END 2025-06-21 08:25 | disposition home or self-care (01) ==
LOC: ANHLAB 08:25
PROVIDERS: PCP Family Medicine; Visit Provider Psychiatry & Neurology Neurology
DX: G70.00 Myasthenia gravis without (acute) exacerbation (principal); E55.9 Vitamin D deficiency, unspecified
CPT/HCPCS: 36415; 80053; 83036; 85025